=== PATIENT | female | born 1975 | race Hispanic/Latino ===

== ENCOUNTER 2020-05-23 17:26 | Emergency (ER) | payer OTHER ==
[2020-05-23] MEDS ORDERED: HYDROCODONE/APAP 5/325 MG TAB ONE (18:24)
[2020-05-23] MEDS ORDERED: MECLIZINE HCL 12.5 MG TAB ONE (18:25)
[2020-05-23] MEDS ORDERED: ONDANSETRON 4 MG (ODT) TAB ONE (18:25)
--- NOTE | 2020-05-23 18:54 | EDPHYS ---
Physician Documentation [facility] Name: Radha Reyes Age: 45 yrs Sex: Female : 1975 Arrival Date: 05/23/2020 Time: 17:30 Bed 19 Private MD: ED Physician Clyde Camarena HPI: 05/23 18:12 This 45 yrs old Female presents to ER via Wheelchair with complaints of Fall pm1 Injury. 18:12 Details of fall: The patient fell from an upright position, while standing. Onset: The pm1 symptoms/episode began/occurred today. Associated injuries: The patient sustained left foot. Severity of symptoms: in the emergency department the symptoms are unchanged. Patient reports symptoms of vertigo for the past 1 week that feel like her vertigo that she had about 4 years ago. Due to her vertigo, when she got out of bed this AM she injured her left foot. Patient also has left knee pain that has been evaluated by Dr. Rangel that is causing her to change her gait. She is pending approval from insurance for treatment of left knee. Patient reports pain with weight bearing to left foot. 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 - Social history:: Smoking status: Patient denies any tobacco usage or history of. ROS: 18:19 Constitutional: Negative for fever, chills, and weight loss, Cardiovascular: Negative pm1 for chest pain, palpitations, and edema, Respiratory: Negative for shortness of breath, cough, wheezing, and pleuritic chest pain, Back: Negative for injury and pain. 18:19 Skin: Negative for injury, rash, and discoloration. 18:19 MS/extremity: Positive for pain, of the left foot. 18:19 Neuro: Positive for vertigo, Negative for headache, numbness, syncope, near syncope, tingling, weakness. Exam: 18:19 Constitutional: This is a well developed, well nourished patient who is awake, alert, pm1 and in no acute distress. Head/Face: Normocephalic, atraumatic. Neck: Trachea midline, no thyromegaly or masses palpated, and no cervical lymphadenopathy. Supple, full range of motion without nuchal rigidity, or vertebral point tenderness. No Meningismus. Chest/axilla: Normal chest wall appearance and motion. Nontender with no deformity. No lesions are appreciated. 18:19 Back: No spinal tenderness. No costovertebral tenderness. Full range of motion. Skin: Warm, dry with normal turgor. Normal color with no rashes, no lesions, and no evidence of cellulitis. 18:19 Eyes: Nystagmus: present when looking to the right . 18:19 Cardiovascular: Exam negative for acute changes, Rate: normal, Rhythm: regular, Pulses: no pulse deficits are appreciated. 18:19 Respiratory: Exam negative for acute changes, respiratory distress, shortness of breath. 18:19 Musculoskeletal/extremity: Extremities: grossly normal except: noted in the lateral side of left foot, ball of left foot and heel of left foot: tenderness. 18:19 Neuro: Exam negative for acute changes, Orientation: is normal, Mentation: is normal, Motor: is normal, moves all fours, Eliseo-Hallpike positive for reproducing vertigo and resolution of symptoms with sitting up less than 20 seconds. Vital Signs: 17:46 BP 164 / 98; Pulse 90; Resp 16 S; Temp 98.4(TE); Pulse Ox 100% on R/A; Weight 104.33 kg ca1 (R); Height 5 ft. 2 in. (157.48 cm) (R); Pain 8/10; 18:52 BP 155 / 96; Pulse 84; Resp 18 S; Pulse Ox 100% on R/A; jd3 17:46 Body Mass Index 42.07 (104.33 kg, 157.48 cm) ca1 MDM: 17:54 Patient medically screened. pm1 18:48 Data reviewed: vital signs. Counseling: I had a detailed discussion with the patient pm1 and/or guardian regarding: the historical points, exam findings, and any diagnostic results supporting the discharge/admit diagnosis, radiology results, the need for outpatient follow up, to return to the emergency department if symptoms worsen or persist or if there are any questions or concerns that arise at home. 05/23 18:04 Order name: Foot Left 3 View XRAY pm1 05/23 18:57 Order name: Crutches; Complete Time: 19:00 pm1 05/23 18:57 Order name: Nas Wrap; Complete Time: 19:00 pm1 Administered Medications: 18:18 Drug: Meclizine 50 mg Route: PO; jd3 19:18 Follow up: Response: No adverse reaction jd3 18:18 Drug: Zofran (Ondansetron) 4 mg Route: PO; jd3 19:18 Follow up: Response: No adverse reaction jd3 18:18 Drug: [place] 5 mg-325 mg 1 tabs Route: PO; jd3 19:18 Follow up: Response: No adverse reaction; RASS: Alert and Calm (0) jd3 Disposition: 05/23/20 18:54 Discharged to Home. Impression: Unspecified sprain of left foot, Benign paroxysmal vertigo, left ear. - Condition is Stable. - Discharge Instructions: Benign Positional Vertigo, Crutch Use, Foot Sprain. - Prescriptions for Meclizine 25 mg Oral Tablet - take 1 tablet by ORAL route every 8 hours As needed; 30 tablet. Tylenol- Codeine #3 300-30 mg Oral Tablet - take 2 tablets by ORAL route every 6 hours As needed; 20 tablet. - Work release form, Medication Reconciliation Form, Thank You Letter, Antibiotic Education, Prescription Opioid Use form. - Follow up: Emergency Department; When: As needed; Reason: Worsening of condition. Follow up: Private Physician; When: 2 - 3 days; Reason: Recheck today's complaints, Continuance of care, Re-evaluation by your physician. - Problem is new. - Symptoms have improved. Addendum: 05/25/2020 07:34 Co-signature as Attending Physician, Clyde Camarena MD I agree with the assessment and t w4 plan of care. Signatures: Dispatcher [employer] EDMS Jersey Atwood, FACING MACHINE OPERATOR FACING MACHINE OPERATOR pm1 Yuriy Ro RN RN Clyde Artis MD MD tw4 Janeth Fraga RN RN ca1 Corrections: (The following items were deleted from the chart) 05/23 19:19 18:54 05/23/2020 18:54 Discharged to Home. Impression: Unspecified sprain of left foot; jd3 Benign paroxysmal vertigo, left ear. Condition is Stable. Forms are Medication Reconciliation Form, Thank You Letter, Antibiotic Education, Prescription Opioid Use. Follow up: Emergency Department; When: As needed; Reason: Worsening of condition. Follow up: Private Physician; When: 2 - 3 days; Reason: Recheck today's complaints, Continuance of care, Re-evaluation by your physician. Problem is new. Symptoms have improved. pm1
--- NOTE | 2020-05-23 18:54 | ER ---
Nurse's Notes [facility] Name: Radha Reyes Age: 45 yrs Sex: Female : 1975 Arrival Date: 05/23/2020 Time: 17:30 Bed 19 Private MD: Diagnosis: Unspecified sprain of left foot;Benign paroxysmal vertigo, left ear Presentation: 05/23 17:46 Chief complaint: Patient states: L knee pain since Tuesday and I feel like I have ca1 vertigo and I have been losing my balance. I popped it while walking on Tuesday, and twisted my L ankle/foot today. Reports swelling on L foot. Coronavirus screen: Client denies travel out of the [place] in the last 14 days. At this time, the client does not indicate any symptoms associated with coronavirus-19. Ebola Screen: Patient negative for fever greater than or equal to 101.5 degrees Fahrenheit, and additional compatible Ebola Virus Disease symptoms Patient denies exposure to infectious person. Patient denies travel to an Ebola-affected area in the 21 days before illness onset. No symptoms or risks identified at this time. Initial Sepsis Screen: Does the patient meet any 2 criteria? No. Patient's initial sepsis screen is negative. Does the patient have a suspected source of infection? No. Patient's initial sepsis screen is negative. Risk Assessment: Do you want to hurt yourself or someone else? Patient reports no desire to harm self or others. Onset of symptoms was May 23, 2020. 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 - Social history:: Smoking status: Patient denies any tobacco usage or history of. Screenin:20 Abuse screen: Denies threats or abuse. Nutritional screening: No deficits noted. jd3 Tuberculosis screening: No symptoms or risk factors identified. Fall Risk Ambulatory Aid- None/Bed Rest/Nurse Assist (0 pts). Gait- Normal/Bed Rest/Wheelchair (0 pts) Mental Status- Oriented to own ability (0 pts). Total Booth Fall Scale indicates No Risk (0-24 pts). Assessment: 18:19 General: Appears in no apparent distress. uncomfortable, Behavior is calm, cooperative, jd3 appropriate for age. Pain: Complains of pain in left foot Quality of pain is described as aching, tender, Aggravated by weight bearing. Neuro: Level of Consciousness is awake, alert, obeys commands, Oriented to person, place, time, situation. Cardiovascular: Denies chest pain, Capillary refill < 3 seconds Patient's skin is warm and dry. Respiratory: Airway is patent Respiratory effort is even, unlabored, Respiratory pattern is regular, symmetrical, Denies cough, shortness of breath. GI: No signs and/or symptoms were reported involving the gastrointestinal system. : No signs and/or symptoms were reported regarding the genitourinary system. EENT: No signs and/or symptoms were reported regarding the EENT system. Derm: Skin is intact, Skin is dry, Skin is normal, Skin temperature is warm. Musculoskeletal: Circulation, motion, and sensation intact. Range of motion: intact in all extremities. 18:53 Reassessment: Patient appears in no apparent distress at this time. No changes from jd3 previously documented assessment. Patient and/or family updated on plan of care and expected duration. Pain level reassessed. Patient is alert, oriented x 3, equal unlabored respirations, skin warm/dry/pink. 19:17 Reassessment: Patient appears in no apparent distress at this time. Patient and/or jd3 family updated on plan of care and expected duration. Pain level reassessed. Patient is alert, oriented x 3, equal unlabored respirations, skin warm/dry/pink. Vital Signs: 17:46 BP 164 / 98; Pulse 90; Resp 16 S; Temp 98.4(TE); Pulse Ox 100% on R/A; Weight 104.33 kg ca1 (R); Height 5 ft. 2 in. (157.48 cm) (R); Pain 8/10; 18:52 BP 155 / 96; Pulse 84; Resp 18 S; Pulse Ox 100% on R/A; jd3 17:46 Body Mass Index 42.07 (104.33 kg, 157.48 cm) ca1 ED Course: 17:30 Patient arrived in ED. rg4 17:50 Triage completed. ca1 17:52 Arm band placed on right wrist. ca1 17:53 Yuriy Ro RN is Primary Nurse. jd3 17:54 Jersey Atwood NP is PHCP. pm1 17:54 Clyde Camarena MD is Attending Physician. pm1 18:20 Foot Left 3 View XRAY In Process Unspecified. EDMS 18:20 Patient has correct armband on for positive identification. Bed in low position. Call jd3 light in reach. Side rails up X 1. Adult w/ patient. Pulse ox on. NIBP on. 19:17 No provider procedures requiring assistance completed. Patient did not have IV access jd3 during this emergency room visit. Administered Medications: 18:18 Drug: Meclizine 50 mg Route: PO; jd3 19:18 Follow up: Response: No adverse reaction jd3 18:18 Drug: Zofran (Ondansetron) 4 mg Route: PO; jd3 19:18 Follow up: Response: No adverse reaction jd3 18:18 Drug: [place] 5 mg-325 mg 1 tabs Route: PO; jd3 19:18 Follow up: Response: No adverse reaction; RASS: Alert and Calm (0) jd3 Outcome: 18:54 Discharge ordered by MD. pm1 19:17 Discharged to home via wheelchair, with family. jd3 19:17 Condition: stable 19:17 Discharge instructions given to patient, family, Instructed on discharge instructions, follow up and referral plans. medication usage, Demonstrated understanding of instructions, follow-up care, medications, Prescriptions given X 2. 19:19 Patient left the ED. jd3 Signatures: Dispatcher [employer] EDMS Jersey Atwood NP RHINESTONE SETTER pm1 Anni Araujo rg4 Yuriy Ro RN RN jd3 Janeth Fraga RN RN ca1
[2020-05-23 19:32] VITALS: BP 155/96; O2SAT 100
[2020-05-23 19:33] VITALS: TEMP 98.4
--- NOTE | 2020-05-23 19:36 | RAD REPORT ---
EXAM DESCRIPTION: RAD - Foot Left 3 View - 05/23/2020 6:19 pm CLINICAL HISTORY: PAIN COMPARISON: No comparisonsNo comparisons FINDINGS: No gross fracture deformity seen. No dislocation or periosteal reaction. Faint bone densit y is present along the lateral margin of the cuboid bone. This is a common site for an accessory ossi eleazar. There is relative lucency in the main body of the cuboid bone. Avulsion is not definitive. No ac bill moore's slough or destructive bony process. Spurring is seen at the Achilles attachment. Degenerative changes a re present along the articular margins of several tarsal bones. No air or foreign body in the soft tissues. IMPRESSION: No definitive fracture change identified. Bone density lateral margin of the cuboid bone is probably an accessory ossicle. Follow-up MR imaging could be performed if the patient has continued findings concerning for occult b pankaj injury or soft tissue injury.
== END 2020-05-23 19:19 | disposition home or self-care (01) ==
LOC: ER 17:26
DX: S93.602A Unspecified sprain of left foot, initial encounter (principal); H81.12 Benign paroxysmal vertigo, left ear; X50.1XXA Overexertion from prolonged static or awkward postures, initial encounter; Y93.01 Activity, walking, marching and hiking; Y92.9 Unspecified place or not applicable; I10 Essential (primary) hypertension; F41.8 Other specified anxiety disorders; E07.9 Disorder of thyroid, unspecified
CPT/HCPCS: 99284

== ENCOUNTER 2022-12-24 17:42 | Emergency (ER) | payer OTHER, SELFPAY ==
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
[2022-12-24] MEDS ORDERED: ACETAMINOPHEN 500 MG TAB ONE (18:48)
--- NOTE | 2022-12-24 18:50 | RAD REPORT ---
EXAM DESCRIPTION: CT - Head Brain Wo Cont - 12/24/2022 6:36 pm CLINICAL HISTORY: Headache COMPARISON: none TECHNIQUE: Computed axial tomography of the head was obtained. IV contrast was not requested. All CT scans are performed using dose optimization technique as appropriate and may include automated exposure control or mA/KV adjustment according to patient size. FINDINGS: An intracranial bleed is not seen The ventricles are normal in caliber No significant hypodense areas within the brain visualized No extra-axial fluid collection is noted. Fluid within the sinuses/ mastoids is not seen IMPRESSION: No acute intracranial abnormality is seen If patient's symptoms persist MRI of the brain would be recommended
[2022-12-24 19:14] LABS: Absolute Lymphocytes (CBC) 0.9 K/uL (0.7-4.9); Hematocrit 36.3 % (36.0-45.0); Lymphocytes % 6.2 % (15.3-44.8); MCV 70.3 fL (80-100); MPV 8.3 fL (7.6-11.3); RBC Red Blood Cell Count 5.17 M/uL (3.86-4.86)
[2022-12-24 19:18] LABS: Protime INR 1.16
[2022-12-24 19:27] LABS: SARS-CoV-2 Antigen Rapid Res Negative (Negative)
[2022-12-24 19:29] LABS: Albumin 3.7 g/dL (3.4-5.0); Bilirubin Total 0.8 mg/dL (0.2-1.0); Potassium 3.4 mEq/L (3.5-5.1); Protein, Total 8.2 g/dL (6.4-8.2)
[2022-12-24] MEDS ORDERED: NA CHLORIDE 0.9% 1,000 ML ONE (19:32)
[2022-12-24] MEDS ORDERED: MAGNESIUM SULFATE 1 gm IVPB 1 GM/100 ML BAG IV ONE (20:58)
[2022-12-24] MEDS ORDERED: dexAMETHasone 10 MG/ML VIAL ONE (20:58)
[2022-12-24] MEDS ORDERED: KETOROLAC 30 MG/ML INJ ONE (20:58)
[2022-12-24] MEDS ORDERED: METOCLOPRAMIDE 10 MG/2mL INJ ONE (20:59)
[2022-12-24] MEDS ORDERED: NA CHLORIDE 0.9% 100 ML ONE (20:59)
[2022-12-24 22:55] LABS: Specific Gravity 1.008 (1.005-1.030); Urine Bacteria None Seen /HPF (<20); Urine Bilirubin NEGATIVE (Negative); Urine Blood Negative (Negative); Urine Clarity Turbid (Clear); Urine Color Light-Yellow (Yellow); Urine Glucose NEGATIVE (Negative); Urine Mucus Slight /HPF (None Seen); Urine Protein NEGATIVE (Negative); Urine RBC <5 /HPF (None Seen); Urine Urobilinogen Normal (Normal); Urine pH 6.5 (5.0-7.0)
--- NOTE | 2022-12-24 23:19 | ER ---
Nurse's Notes [facility] Name: Radha Reyes Age: 47 yrs Sex: Female : 1975 Arrival Date: 12/24/2022 Time: 17:42 Bed 15 Private MD: Diagnosis: Essential (primary) hypertension;Headache Presentation: 12/24 18:12 Chief complaint: Patient states: "Today I started having diarrhea, headache, went I mb9 stood up I felt like I was going to collapse. It hurts when I open my eyes. My body is hurting and I have aches". Coronavirus screen: Vaccine status: Patient reports being unvaccinated. Ebola Screen: No symptoms or risks identified at this time. Initial Sepsis Screen: Does the patient meet any 2 criteria? No. Patient's initial sepsis screen is negative. Does the patient have a suspected source of infection? No. Patient's initial sepsis screen is negative. Risk Assessment: Do you want to hurt yourself or someone else? Patient reports no desire to harm self or others. Onset of symptoms. 18:12 Method Of Arrival: Wheelchair [facility] 18:12 Acuity: CA 3 mb9 Triage Assessment: 18:16 General: Appears uncomfortable, Behavior is cooperative. Pain: Complains of pain in mb9 head Pain does not radiate. Pain currently is 10 out of 10 on a pain scale. Quality of pain is described as throbbing, Pain began suddenly, Is continuous. 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 Speech is normal, Facial symmetry appears normal, Pupils are PERRLA, Intact. Cardiovascular: Denies chest pain, shortness of breath, Patient's skin is warm and dry. Respiratory: Airway is patent Respiratory effort is even, unlabored, Respiratory pattern is regular, symmetrical. GI: No signs and/or symptoms were reported involving the gastrointestinal system. Derm: Skin is pink, warm \\T\\ dry. Musculoskeletal: Range of motion: intact in all extremities. Historical: - Allergies: 18:13 No Known Allergies; mb9 - Home Meds: 18:13 None [Active]; mb9 - PMHx: 18:13 Anxiety; Depression; Hypertension; Thyroid problem; mb9 - PSHx: 18:13 section; mb9 - Immunization history:: Adult Immunizations up to date. - Social history:: Smoking status: Patient denies any tobacco usage or history of. Screenin:30 [facility] ED Fall Risk Assessment (Adult) History of falling in the last 3 months, kc6 including since admission No falls in past 3 months (0 pts) Confusion or Disorientation No (0 pts) Intoxicated or Sedated No (0 pts) Impaired Gait No (0 pts) Mobility Assist Device Used No (0 pt) Altered Elimination No (0 pt) Score/Fall Risk Level 0 - 2 = Low Risk. Abuse screen: Denies threats or abuse. Denies injuries from another. Nutritional screening: No deficits noted. Tuberculosis screening: No symptoms or risk factors identified. Assessment: 18:30 General: Appears in no apparent distress. uncomfortable, ill, Behavior is cooperative, kc6 appropriate for age. Pain: Complains of pain in chest. Neuro: Level of Consciousness is obeys commands, lethargic, Oriented to person, place, time, situation, Appropriate for age. Cardiovascular: Reports chest pain, shortness of breath, Heart tones S1 S2 present Capillary refill < 3 seconds Rhythm is sinus tachycardia. Respiratory: Airway is patent Trachea midline Respiratory effort is even, unlabored, Respiratory pattern is regular, symmetrical. GI: Abdomen is round non-distended, Reports diarrhea, Patient currently denies nausea, vomiting. : No signs and/or symptoms were reported regarding the genitourinary system. EENT: No signs and/or symptoms were reported regarding the EENT system. Derm: No signs and/or symptoms reported regarding the dermatologic system. Skin is intact, is healthy with good turgor, Skin is pink, warm \\T\\ dry. Musculoskeletal: No signs and/or symptoms reported regarding the musculoskeletal system. Circulation, motion, and sensation intact. Capillary refill < 3 seconds, Range of motion: intact in all extremities. 23:00 Reassessment: Patient and/or family updated on plan of care and expected duration. Pain ha1 level reassessed. Patient is alert, oriented x 3, equal unlabored respirations, skin warm/dry/pink. 23:59 Reassessment: Patient and/or family updated on plan of care and expected duration. Pain ha1 level reassessed. Patient is alert, oriented x 3, equal unlabored respirations, skin warm/dry/pink. Vital Signs: 18:12 BP 185 / 90; Pulse 120; Resp 18; Temp 100.3; Pulse Ox 98% on R/A; Weight 104.33 kg; mb9 Height 5 ft. 2 in. ; Pain 8/10; 21:06 BP 149 / 78; Pulse 104; Resp 16; Temp 98.9(O); Pulse Ox 100% on R/A; ll3 22:13 BP 162 / 92; Pulse 105; Resp 18; Pulse Ox 98% on R/A; ll3 18:12 Body Mass Index 42.07 (104.33 kg, 157.48 cm) mb9 18:12 Pain Scale: Adult mb9 ED Course: 17:45 Patient arrived in ED. im 17:47 Temi Lyons PA-C is PHCP. sb4 17:48 Alexis Loza MD is Attending Physician. sb4 18:13 Triage completed. mb9 18:16 Arm band placed on. mb9 18:30 Patient has correct armband on for positive identification. Bed in low position. Call kc6 light in reach. Side rails up X2. Adult w/ patient. 18:36 Amelia Gardner, RN is Primary Nurse. kc6 18:37 Head Brain Wo Cont CT In Process Unspecified. EDMS 18:58 First set of blood cultures drawn COVID swab sent to lab. Flu and/or RSV swab sent to aw1 lab. Inserted saline lock: 20 gauge in right antecubital area, using aseptic technique. 19:09 Initial lab(s) drawn, by id, sent to lab. aw1 23:18 Jf Silvestre DO is Referral Physician. sb4 23:58 No provider procedures requiring assistance completed. IV discontinued, intact, ha1 bleeding controlled, No redness/swelling at site. Pressure dressing applied. 23:59 Provided Education on: follow ups. ha1 Administered Medications: 19:00 Drug: Acetaminophen PO 1000 mg Route: PO; kc6 21:53 Follow up: Response: No adverse reaction; Temperature is decreased ll3 19:25 Drug: NS 0.9% IV 1000 ml Route: IV; Rate: 1 bolus; Site: right antecubital; ll3 21:53 Follow up: Response: No adverse reaction; IV Status: Completed infusion; IV Intake: ll3 1000ml 21:05 Drug: Ketorolac IVP 30 mg Route: IVP; Site: right antecubital; ll3 21:53 Follow up: Response: No adverse reaction; Marked relief of symptoms ll3 21:05 Drug: Magnesium Sulfate IVPB 1 grams Route: IVPB; Infused Over: 1 hrs; Site: right ll3 antecubital; 21:53 Follow up: Response: No adverse reaction; Marked relief of symptoms; IV Status: ll3 Completed infusion; IV Intake: 100ml 21:05 Drug: metoCLOPramide IVP 10 mg Route: IVP; Site: right antecubital; ll3 21:52 Follow up: Response: No adverse reaction; Marked relief of symptoms ll3 21:05 Drug: Decadron - Dexamethasone IVP 10 mg Route: IVP; Site: right antecubital; ll3 21:52 Follow up: Response: No adverse reaction; Marked relief of symptoms ll3 Medication: 23:58 VIS not applicable for this client. ha1 Intake: 21:53 IV: 100ml; Total: 100ml. ll3 21:53 IV: 1000ml; Total: 1100ml. ll3 Outcome: 23:18 Discharge ordered by MD. sb4 23:58 Discharged to home ambulatory, with family. ha1 23:58 Condition: stable 23:58 Discharge instructions given to patient, family, Instructed on discharge instructions, follow up and referral plans. Demonstrated understanding of instructions, follow-up care. 23:59 Patient left the ED. ha1 Signatures: Dispatcher [employer] EDMS Kirti Duff RN RN 3 Krystal Martinez RN RN ha1 Amelia Gardner RN RN kc6 Teim Lyons PA-C PAAnkush [email or web address] Katharine Mccurdy RN RN mb9 Taryn Jenkins Alyssa aw1 Corrections: (The following items were deleted from the chart) 18:16 18:12 BP 184 / 101; Pulse 120bpm; Resp 18bpm; Pulse Ox 98% RA; Temp 100.3F; 104.33 kg; mb9 Height 5 ft. 2 in.; BMI: 42.0; Pain 8/10, Adult; mb9 18:16 18:13 Home Meds: amlodipine 5 mg tab 1 tab once daily; mb9 mb9 18:16 18:13 Home Meds: levothyroxine oral; mb9 mb9 18:16 18:13 Home Meds: meloxicam Oral; mb9 mb9 19:08 19:07 Labs ordered per protocol. Drawn by ED staff. 1 19:06 Influenza Screen (A \\T\\ B)+BA.LAB.BRZ drawn and sent. 1 aw 19:06 SARS-COV-2 Antigen Rapid+I.LAB.BRZ drawn and sent. 1 aw1 19:08 Initial lab(s) drawn, by me, sent to lab. ha1 aw1 18:58 First set of blood cultures drawn by me, COVID swab sent to lab. Flu and/or RSV aw1 swab sent to lab. ha1 18:58 Inserted saline lock: 20 gauge in right antecubital area, using aseptic aw1 technique. ha1
--- NOTE | 2022-12-24 23:19 | EDPHYS ---
Physician Documentation [facility] Name: Radha Reyes Age: 47 yrs Sex: Female : 1975 Arrival Date: 12/24/2022 Time: 17:42 Bed 15 Private MD: ED Physician Alexis Loza HPI: 12/24 21:10 This 47 yrs old Female presents to ER via Wheelchair with complaints of Fever, sb4 High Blood Pressure, Near Syncope. 21:10 Onset: The symptoms/episode began/occurred just prior to arrival. Patient presents with sb4 complaints of severe headache, fever, weakness, high blood pressure. She states it started just prior to arrival. No known sick contacts. Patient is not very cooperative during my assessment. No neurologic deficits noted. Historical: - Allergies: 18:13 No Known Allergies; mb9 - Home Meds: 18:13 None [Active]; mb9 - PMHx: 18:13 Anxiety; Depression; Hypertension; Thyroid problem; mb9 - PSHx: 18:13 section; mb9 - Immunization history:: Adult Immunizations up to date. - Social history:: Smoking status: Patient denies any tobacco usage or history of. ROS: 21:12 Cardiovascular: Negative for chest pain, palpitations, and edema, Respiratory: Negative sb4 for shortness of breath, cough, wheezing, and pleuritic chest pain. 21:12 Constitutional: Positive for body aches, chills, fever, malaise. 21:12 Abdomen/GI: Positive for nausea, vomiting, and diarrhea. 21:12 Neuro: Positive for dizziness, headache, near syncope. 21:12 All other systems are negative. Exam: 21:12 Head/Face: Normocephalic, atraumatic. Eyes: Extra-ocular motions intact. Periorbital sb4 areas with no swelling, redness, or edema. Cardiovascular: Regular rate and rhythm with a normal S1 and S2. Respiratory: Lungs have equal breath sounds bilaterally, clear to auscultation and percussion. No rales, rhonchi or wheezes noted. No increased work of breathing, no retractions or nasal flaring. Abdomen/GI: Soft, non-tender, no distension. Skin: Warm, dry with normal turgor. Normal color with no rashes, no lesions, and no evidence of cellulitis. MS/ Extremity: Pulses equal, no cyanosis. Neurovascular intact. Full, normal range of motion. Neuro: Awake and alert, GCS 15, oriented to person, place, time, and situation. Cranial nerves II-XII grossly intact. Motor strength 5/5 in all extremities. Sensory grossly intact. Cerebellar exam normal. Normal gait. 21:12 Constitutional: The patient appears lethargic, restless, uncomfortable. Vital Signs: 18:12 BP 185 / 90; Pulse 120; Resp 18; Temp 100.3; Pulse Ox 98% on R/A; Weight 104.33 kg; mb9 Height 5 ft. 2 in. ; Pain 8/10; 21:06 BP 149 / 78; Pulse 104; Resp 16; Temp 98.9(O); Pulse Ox 100% on R/A; ll3 22:13 BP 162 / 92; Pulse 105; Resp 18; Pulse Ox 98% on R/A; ll3 18:12 Body Mass Index 42.07 (104.33 kg, 157.48 cm) mb9 18:12 Pain Scale: Adult mb9 MDM: 17:48 Patient medically screened. sb4 21:12 Differential diagnosis: viral Infection, bacterial infection, URI, bronchitis, sb4 pneumonia UTI, gastroenteritis, meningitis. 23:17 Data reviewed: vital signs, nurses notes, lab test result(s), EKG, radiologic studies, sb4 and as a result, I will discharge patient. Consideration of Admission/Observation Escalation of care including admission/observation considered. Historians other than the Patient: Spouse/Significant Other: significant other. Care significantly affected by the following chronic conditions: Hypertension. Counseling: I had a detailed discussion with the patient and/or guardian regarding: the historical points, exam findings, and any diagnostic results supporting the discharge/admit diagnosis, the presence of at least one elevated blood pressure reading (>120/80) during this emergency department visit, lab results, radiology results, the need for outpatient follow up, for definitive care, to return to the emergency department if symptoms worsen or persist or if there are any questions or concerns that arise at home. Response to treatment: the patient's symptoms have resolved after treatment, the patient's blood pressure is in an acceptable range, the patient's pain is gone, the patient's temperature has normalized. 12/24 18:21 Order name: Blood Culture Adult (2) sb4 12/24 18:21 Order name: CBC with Diff; Complete Time: 19:16 sb4 12/24 18:21 Order name: CMP; Complete Time: 19:29 sb4 12/24 18:21 Order name: Lactate w/ 2H reflex if indic.; Complete Time: 19:25 sb4 12/24 18:21 Order name: Protime (+inr); Complete Time: 19:19 sb4 12/24 18:21 Order name: Ptt, Activated; Complete Time: 19:19 sb4 12/24 18:21 Order name: SARS RAPID; Complete Time: 19:28 sb4 12/24 18:21 Order name: Flu; Complete Time: 19:30 sb4 12/24 18:21 Order name: UAM; Complete Time: 23:11 sb4 12/24 18:24 Order name: Troponin High Sensitivity; Complete Time: 21:04 sb4 12/24 18:21 Order name: Head Brain Wo Cont CT; Complete Time: 18:51 sb4 12/24 18:21 Order name: EKG; Complete Time: 18:22 sb4 12/24 18:21 Order name: Accucheck; Complete Time: 18:59 sb4 12/24 18:21 Order name: Cardiac monitoring; Complete Time: 18:59 sb4 12/24 18:21 Order name: EKG - Nurse/Tech; Complete Time: 18:59 sb4 12/24 18:21 Order name: IV Saline Lock - Large Bore; Complete Time: 19:06 sb4 12/24 18:21 Order name: Labs collected and sent; Complete Time: 19:06 sb4 12/24 18:21 Order name: O2 Per Protocol; Complete Time: 18:59 sb4 12/24 18:21 Order name: O2 Sat Monitoring; Complete Time: 18:59 sb4 12/24 18:21 Order name: Vital Signs; Complete Time: 18:59 sb4 12/24 21:04 Order name: Vital Signs; Complete Time: 21:07 sb4 EC:12 Rate is 117 beats/min. Rhythm is regular, Sinus tachycardia. OK interval is normal at sb4 136 msec. QRS interval is normal at 82 msec. QT interval is normal at 324 msec. No Q waves. No ST changes noted. Clinical impression: Normal ECG. Interpreted by me. Reviewed by me. Administered Medications: 19:00 Drug: Acetaminophen PO 1000 mg Route: PO; kc6 21:53 Follow up: Response: No adverse reaction; Temperature is decreased ll3 19:25 Drug: NS 0.9% IV 1000 ml Route: IV; Rate: 1 bolus; Site: right antecubital; ll3 21:53 Follow up: Response: No adverse reaction; IV Status: Completed infusion; IV Intake: ll3 1000ml 21:05 Drug: Ketorolac IVP 30 mg Route: IVP; Site: right antecubital; ll3 21:53 Follow up: Response: No adverse reaction; Marked relief of symptoms ll3 21:05 Drug: Magnesium Sulfate IVPB 1 grams Route: IVPB; Infused Over: 1 hrs; Site: right ll3 antecubital; 21:53 Follow up: Response: No adverse reaction; Marked relief of symptoms; IV Status: ll3 Completed infusion; IV Intake: 100ml 21:05 Drug: metoCLOPramide IVP 10 mg Route: IVP; Site: right antecubital; ll3 21:52 Follow up: Response: No adverse reaction; Marked relief of symptoms ll3 21:05 Drug: Decadron - Dexamethasone IVP 10 mg Route: IVP; Site: right antecubital; ll3 21:52 Follow up: Response: No adverse reaction; Marked relief of symptoms ll3 Disposition Summary: 12/24/22 23:18 Discharge Ordered Location: Home sb4 Problem: new sb4 Symptoms: have improved sb4 Condition: Stable sb4 Diagnosis - Essential (primary) hypertension sb4 - Headache sb4 Followup: sb4 - With: Jf Silvestre, - When: 2 - 3 days - Reason: Recheck today's complaints, Continuance of care, Re-evaluation by your physician Discharge Instructions: - Discharge Summary Sheet sb4 - Hypertension, Adult, [id number] sb4 Forms: - Medication Reconciliation Form sb4 - Thank You Letter sb4 - Antibiotic Education sb4 - Prescription Opioid Use sb4 - Patient Portal Instructions sb4 Signatures: Dispatcher [employer] Kirti Schwarz RN RN ll3 Amelia Gardner RN RN kc6 Temi Lyons PA-C PAAnkush sb4 Katharine Mccurdy RN RN mb9 Corrections: (The following items were deleted from the chart) 18:16 18:13 Home Meds: amlodipine 5 mg tab 1 tab once daily; mb9 mb9 18:16 18:13 Home Meds: levothyroxine oral; mb9 mb9 18:16 18:13 Home Meds: meloxicam Oral; mb9 mb9 21:12 21:11 Associated signs and symptoms: Pertinent positives: sb4 sb4
[2022-12-25 00:14] VITALS: TEMP 98.9
[2022-12-25 00:16] VITALS: BP 162/92; O2SAT 98
--- NOTE | 2022-12-27 13:09 | EKG ---
Test Date: 2022-12-24 Test Time: 18:56:17 Patient Placement Coordinator: MICHAEL MEASUREMENT RESULTS: Intervals: Rate: 117 WV: 136 QRSD: 82 QT: 324 QTc: 451 [place]: P: 47 WV: 136 QRS: 31 T: 1 INTERPRETIVE STATEMENTS: Sinus tachycardia Nonspecific T wave abnormality Abnormal ECG No previous ECG available for comparison Electronically Signed On 12-27-22 13:05:43 CDT by Sony Owusu
== END 2022-12-24 23:59 | disposition home or self-care (01) ==
LOC: ER 17:42
DX: I10 Essential (primary) hypertension (principal); R51.9 Headache, unspecified
CPT/HCPCS: 36415; 70450; 80053; 81001; 83605; 84484; 85025; 85610; 85730; 87040; 87804; 87811; 93005; 96361; 96365; 96375; 99284; J1100; J2765; J3475; J7030

== ENCOUNTER 2023-03-23 23:17 | Emergency (ER) | payer OTHER, SELFPAY ==
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
[2023-03-24] MEDS ORDERED: KETOROLAC 30 MG/ML INJ ONE (00:39)
[2023-03-24] MEDS ORDERED: ONDANSETRON 4 MG/2 ML VIAL ONE (00:39)
[2023-03-24] MEDS ORDERED: FENTANYL CITR 100 MCG/2 ML ONE (00:39)
[2023-03-24 01:08] LABS: Absolute Lymphocytes (CBC) 2.6 K/uL (0.7-4.9); Hematocrit 32.9 % (36.0-45.0); Lymphocytes % 26.1 % (15.3-44.8); MCV 69.5 fL (80-100); Platelets 329 thou/uL (152-406); RBC Red Blood Cell Count 4.74 M/uL (3.86-4.86)
[2023-03-24 01:15] LABS: ALT/SGPT 38 U/L (13-56); AST/SGOT 23 U/L (15-37); Albumin 3.2 g/dL (3.4-5.0); Alkaline Phosphatase 100 U/L (45-117); BUN Blood Urea Nitrogen 9 mg/dL (7-18); Bicarbonate 26 mEq/L (21-32); Bilirubin Total 0.3 mg/dL (0.2-1.0); Glomerular Filtration Rate 108 ml/min (=/>90); Glucose Level 130 mg/dL (74-106); Lipase 55 U/L (13-75); Potassium 3.7 mEq/L (3.5-5.1); Protein, Total 7.3 g/dL (6.4-8.2); Sodium Level 137 mEq/L (136-145)
[2023-03-24 01:17] LABS: Bilirubin Direct < 0.1 mg/dL (0-0.2); Bilirubin Indirect, Calculated ND mg/dL (0.2-0.8)
[2023-03-24 01:28] LABS: Specific Gravity 1.022 (1.005-1.030); Urine Bilirubin NEGATIVE (Negative); Urine Blood Negative (Negative); Urine Clarity Clear (Clear); Urine Color Light-Yellow (Yellow); Urine Glucose NEGATIVE (Negative); Urine Protein NEGATIVE (Negative); Urine Urobilinogen Normal (Normal)
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
[2023-03-24 03:01] LABS: Anisocytosis 1+; Blood Morphology Comment NOTED (NOT SEEN); Platelet Estimate ADEQ; White Blood Cell Scan OK (OK)
[2023-03-24 03:56] VITALS: BP 140/75; O2SAT 99
--- NOTE | 2023-03-24 09:45 | EKG ---
Test Date: 2023-03-24 Test Time: 01:00:54 Devops Architect: FABIOLA MEASUREMENT RESULTS: Intervals: Rate: 73 AR: 142 QRSD: 94 QT: 408 QTc: 449 [place]: P: 37 AR: 142 QRS: 73 T: 37 INTERPRETIVE STATEMENTS: Normal sinus rhythm Normal ECG Compared to ECG 12/24/2022 18:56:17 Sinus tachycardia no longer present T-wave abnormality no longer present Electronically Signed On 03-24-23 09:44:57 CDT by Sony Owusu
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
== END 2023-03-24 03:34 | disposition home or self-care (01) ==
LOC: ER 23:17
DX: S29.011A Strain of muscle and tendon of front wall of thorax, initial encounter (principal); S60.222A Contusion of left hand, initial encounter; S60.221A Contusion of right hand, initial encounter; V50.5XXA Driver of pick-up truck or van injured in collision with pedestrian or animal in traffic accident, initial encounter; I10 Essential (primary) hypertension
CPT/HCPCS: 93005; 85025; 80048; 36415; 86900; 86850; 84703; 86901; 80076; 81003; 83690; 70450; 72125; 71260; 74177; 73130 ×2; 96375; 96374; 99284; Q9967; J3010; J2405

== ENCOUNTER 2024-03-21 11:37 | Emergency (ER) | payer OTHER, SELFPAY ==
--- OUTSIDE RECORDS SUMMARY | 2024-03-21 11:42 | XMS REPORT | Continuity of Care Document ---
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 [facility] 2017-08-15 15:00:00 2017-08-15 15:00:00 Outpatient [facility] [id number] [facility] Results Test Description Test Time Test Comments Results Result Co mments Source Duarte June, THIRD [id number] 00:00:00* Test Item Value Reference Range Interpretation Comme nts TSH, THIRD GENERATION (test code = 2821) 6.470 UIU/ML Duarte McadamsLIPID [id number] 00:00:00* Test Item Value Reference Range Interpretation Comme nts CHOLESTEROL (test code = 2210) 196 MG/DL TRIGLYCERIDES (test code = 2232) 163 MG/DL HDL CHOLESTEROL (test code = 2220) 47 MG/DL CALC LDL CHOL (test code = 2237) 121 MG/DL RISK RATIO LDL/HDL (test cod e = 2238) 2.57 RATIO Duarte McadamsCOMPREHENSIVE METABOLIC [id number] 00:00:00* Test Item Value Reference Range Interpretation Comme nts GLUCOSE (test code = 2217) 98 MG/DL BUN (test code = 2208) 11 MG/DL CREATININE (test code = 2214) 0.97 MG/DL eGFR (2020 CKD-EPI) (test co de = 75910) 72 ML/MIN/1.73 CALC BUN/CREAT (test code = 2235) 11 RATIO SODIUM (test code = 2231) 137 MEQ/L POTASSIUM (test code = 2228) 4.0 MEQ/L CHLORIDE (test code = 2215) 97 MEQ/L CARBON DIOXIDE (test code = 2206) 25 MEQ/L CALCIUM (test code = 2209) 10.3 MG/DL PROTEIN, TOTAL (test code = 2229) 7.9 G/DL ALBUMIN (test code = 2201) 4.6 G/DL CALC GLOBULIN (test code = 2240) 3.3 G/DL CALC A/G RATIO (test code = 2234) 1.4 RATIO BILIRUBIN, TOTAL (test code = 2207) 0.3 MG/DL ALKALINE PHOSPHATASE (test code = 2204) 118 U/L AST (test code = 2218) 17 U/L ALT (test code = 2219) 25 U/L Duarte F AustinTSH REFLEX TO FREE [id number] 00:00:00* Test Item Value Reference Range Interpretation Comme nts TSH REFLEX TO FREE T4 (test code = 2834) 0.444 UIU/ML Duarte F AustinTSH REFLEX TO FREE [id number] 00:00:00* Test Item Value Reference Range Interpretation Comme nts TSH REFLEX TO FREE T4 (test code = 2834) 0.444 UIU/ML Duarte F AustinTSH REFLEX TO FREE [id number] 00:00:00* Test Item Value Reference Range Interpretation Comme nts TSH REFLEX TO FREE T4 (test code = 2834) 0.444 UIU/ML Duarte F AustinTSH REFLEX TO FREE [id number] 00:00:00* Test Item Value Reference Range Interpretation Comme nts TSH REFLEX TO FREE T4 (test code = 2834) 0.444 UIU/ML Duarte F AustinTSH REFLEX TO FREE [id number] 00:00:00* Test Item Value Reference Range Interpretation Comme nts TSH REFLEX TO FREE T4 (test code = 2834) 2.460 UIU/ML Duarte F AustinTSH REFLEX TO FREE [id number] 00:00:00* Test Item Value Reference Range Interpretation Comme nts TSH REFLEX TO FREE T4 (test code = 2834) 2.460 UIU/ML Duarte F AustinTSH REFLEX TO FREE [id number] 00:00:00* Test Item Value Reference Range Interpretation Comme nts TSH REFLEX TO FREE T4 (test code = 2834) 2.460 UIU/ML Duarte F AustinTSH REFLEX TO FREE [id number] 00:00:00* Test Item Value Reference Range Interpretation Comme nts TSH REFLEX TO FREE T4 (test code = 2834) 2.460 UIU/ML Duarte Olsen AustinTSH REFLEX TO FREE [id number] 00:00:00* Test Item Value Reference Range Interpretation Comme nts TSH REFLEX TO FREE T4 (test code = 2834) 2.460 UIU/ML Duarte Olsen AustinTSH REFLEX TO FREE [id number] 00:00:00* Test Item Value Reference Range Interpretation Comme nts TSH REFLEX TO FREE T4 (test code = 2834) 2.460 UIU/ML Duarte Olsen AustinHEMOGLOBIN [id number] 00:00:00* Test Item Value Reference Range Interpretation Comme nts HEMOGLOBIN A1c (test code = 46206) 6.3 % Duarte Olsen AustinHEMOGLOBIN [id number] 00:00:00* Test Item Value Reference Range Interpretation Comme nts HEMOGLOBIN A1c (test code = 28620) 6.3 % Duarte Olsen AustinHEMOGLOBIN [id number] 00:00:00* Test Item Value Reference Range Interpretation Comme nts HEMOGLOBIN A1c (test code = 99848) 6.3 % Duarte Olsen AustinHEMOGLOBIN [id number] 00:00:00* Test Item Value Reference Range Interpretation Comme nts HEMOGLOBIN A1c (test code = 61370) 6.3 % Duarte Olsen AustinHEMOGLOBIN [id number] 00:00:00* Test Item Value Reference Range Interpretation Comme nts HEMOGLOBIN A1c (test code = 24105) 6.3 % Duarte Olsen AustinHEMOGLOBIN [id number] 00:00:00* Test Item Value Reference Range Interpretation Comme nts HEMOGLOBIN A1c (test code = 01371) 6.3 % Duarte Pretty AustinHEMOGLOBIN [id number] 00:00:00* Test Item Value Reference Range Interpretation Comme nts HEMOGLOBIN A1c (test code = 76785) TEST NOT PERFORMED % Duarte Pretty AustinHEMOGLOBIN [id number] 00:00:00* Test Item Value Reference Range Interpretation Comme nts HEMOGLOBIN A1c (test code = 38976) TEST NOT PERFORMED % Duarte Olsen AustinHEMOGLOBIN [id number] 00:00:00* Test Item Value Reference Range Interpretation Comme nts HEMOGLOBIN A1c (test code = 28952) TEST NOT PERFORMED % Duarte F AustinHEMOGLOBIN [id number] 00:00:00* Test Item Value Reference Range Interpretation Comme nts HEMOGLOBIN A1c (test code = 45295) TEST NOT PERFORMED % Duarte F AustinHEMOGLOBIN [id number] 00:00:00* Test Item Value Reference Range Interpretation Comme nts HEMOGLOBIN A1c (test code = 37424) TEST NOT PERFORMED % Duarte F AustinHEMOGLOBIN [id number] 00:00:00* Test Item Value Reference Range Interpretation Comme nts HEMOGLOBIN A1c (test code = 57075) TEST NOT PERFORMED % Duarte F AustinOccult Blood, Fecal, [id number] 00:00:00* Test Item Value Reference Range Interpretation Comme nts Occult Blood, Fecal, IA (byron t code = 19061-1) Negative Duarte F AustinOccult Blood, Fecal, [id number] 00:00:00* Test Item Value Reference Range Interpretation Comme nts Occult Blood, Fecal, IA (byron t code = 49212-8) Negative Duarte F AustinOccult Blood, Fecal, [id number] 00:00:00* Test Item Value Reference Range Interpretation Comme nts Occult Blood, Fecal, IA (byron t code = 79884-3) Negative Duarte F AustinOccult Blood, Fecal, [id number] 00:00:00* Test Item Value Reference Range Interpretation Comme nts Occult Blood, Fecal, IA (byron t code = 67671-5) Negative Duarte F AustinOccult Blood, Fecal, [id number] 00:00:00* Test Item Value Reference Range Interpretation Comme nts Occult Blood, Fecal, IA (byron t code = 75472-0) Negative Duarte F AustinOccult Blood, Fecal, [id number] 00:00:00* Test Item Value Reference Range Interpretation Comme nts Occult Blood, Fecal, IA (byron t code = 44196-3) Negative Duarte F AustinLIPID [id number] 00:00:00* Test Item Value Reference Range Interpretation Comme nts CHOLESTEROL (test code = 2210) 154 MG/DL TRIGLYCERIDES (test code = 2232) 104 MG/DL HDL CHOLESTEROL (test code = 2220) 51 MG/DL CALC LDL CHOL (test code = 2237) 83 MG/DL RISK RATIO LDL/HDL (test cod e = 2238) 1.63 RATIO Duarte McadamsLIPID [id number] 00:00:00* Test Item Value Reference Range Interpretation Comme nts CHOLESTEROL (test code = 2210) 154 MG/DL TRIGLYCERIDES (test code = 2232) 104 MG/DL HDL CHOLESTEROL (test code = 2220) 51 MG/DL CALC LDL CHOL (test code = 2237) 83 MG/DL RISK RATIO LDL/HDL (test cod e = 2238) 1.63 RATIO Duarte McadamsLIPID [id number] 00:00:00* Test Item Value Reference Range Interpretation Comme nts CHOLESTEROL (test code = 2210) 154 MG/DL TRIGLYCERIDES (test code = 2232) 104 MG/DL HDL CHOLESTEROL (test code = 2220) 51 MG/DL CALC LDL CHOL (test code = 2237) 83 MG/DL RISK RATIO LDL/HDL (test cod e = 2238) 1.63 RATIO Duarte McadamsLIPID [id number] 00:00:00* Test Item Value Reference Range Interpretation Comme nts CHOLESTEROL (test code = 2210) 154 MG/DL TRIGLYCERIDES (test code = 2232) 104 MG/DL HDL CHOLESTEROL (test code = 2220) 51 MG/DL CALC LDL CHOL (test code = 2237) 83 MG/DL RISK RATIO LDL/HDL (test cod e = 2238) 1.63 RATIO Duarte McadamsLIPID [id number] 00:00:00* Test Item Value Reference Range Interpretation Comme nts CHOLESTEROL (test code = 2210) 154 MG/DL TRIGLYCERIDES (test code = 2232) 104 MG/DL HDL CHOLESTEROL (test code = 2220) 51 MG/DL CALC LDL CHOL (test code = 2237) 83 MG/DL RISK RATIO LDL/HDL (test cod e = 2238) 1.63 RATIO Duarte McadamsLIPID [id number] 00:00:00* Test Item Value Reference Range Interpretation Comme nts CHOLESTEROL (test code = 2210) 154 MG/DL TRIGLYCERIDES (test code = 2232) 104 MG/DL HDL CHOLESTEROL (test code = 2220) 51 MG/DL CALC LDL CHOL (test code = 2237) 83 MG/DL RISK RATIO LDL/HDL (test cod e = 2238) 1.63 RATIO Duarte Daniels T4 (THYROXINE)2023-06-30 00:00:00* Test Item Value Reference Range Interpretation Comme nts FREE T4 (THYROXINE) (test co de = 2823) 0.98 NG/DL Duarte McadamsT3 [id number] 00:00:00* Test Item Value Reference Range Interpretation Comme nts T3 TOTAL (test code = 2818) 146 NG/DL Duarte McadamsCOMPREHENSIVE METABOLIC [id number] 00:00:00* Test Item Value Reference Range Interpretation Comme nts GLUCOSE (test code = 2217) 120 MG/DL BUN (test code = 2208) 9 MG/DL CREATININE (test code = 2214) 0.62 MG/DL eGFR (2020 CKD-EPI) (test code = 35636) 110 ML/MIN/1.73 CALC BUN/CREAT (test code = 2235) 15 RATIO SODIUM (test code = 2231) 141 MEQ/L POTASSIUM (test code = 2228) 4.0 MEQ/L CHLORIDE (test code = 2215) 107 MEQ/L CARBON DIOXIDE (test code = 2206) 23 MEQ/L CALCIUM (test code = 2209) 8.9 MG/DL PROTEIN, TOTAL (test code = 2229) 6.8 G/DL ALBUMIN (test code = 2201) 4.1 G/DL CALC GLOBULIN (test code = 2240) 2.7 G/DL CALC A/G RATIO (test code = 2234) 1.5 RATIO BILIRUBIN, TOTAL (test code = 2207) <0.2 MG/DL ALKALINE PHOSPHATASE (test code = 2204) 95 U/L AST (test code = 2218) 14 U/L ALT (test code = 2219) 15 U/L Duarte McadamsTSH, THIRD [id number] 00:00:00* Test Item Value Reference Range Interpretation Comme nts TSH, THIRD GENERATION (test code = 2821) 11.300 UIU/ML Duarte McadamsFREE T4 (THYROXINE)2023-06-30 00:00:00* Test Item Value Reference Range Interpretation Comme nts FREE T4 (THYROXINE) (test co de = 2823) 0.98 NG/DL Duarte McadamsT3 [id number] 00:00:00* Test Item Value Reference Range Interpretation Comme nts T3 TOTAL (test code = 2818) 146 NG/DL Duarte McadamsCOMPREHENSIVE METABOLIC [id number] 00:00:00* Test Item Value Reference Range Interpretation Comme nts GLUCOSE (test code = 2217) 120 MG/DL BUN (test code = 2208) 9 MG/DL CREATININE (test code = 2214) 0.62 MG/DL eGFR (2020 CKD-EPI) (test code = 47706) 110 ML/MIN/1.73 CALC BUN/CREAT (test code = 2235) 15 RATIO SODIUM (test code = 2231) 141 MEQ/L POTASSIUM (test code = 2228) 4.0 MEQ/L CHLORIDE (test code = 2215) 107 MEQ/L CARBON DIOXIDE (test code = 2206) 23 MEQ/L CALCIUM (test code = 2209) 8.9 MG/DL PROTEIN, TOTAL (test code = 2229) 6.8 G/DL ALBUMIN (test code = 2201) 4.1 G/DL CALC GLOBULIN (test code = 2240) 2.7 G/DL CALC A/G RATIO (test code = 2234) 1.5 RATIO BILIRUBIN, TOTAL (test code = 2207) <0.2 MG/DL ALKALINE PHOSPHATASE (test code = 2204) 95 U/L AST (test code = 2218) 14 U/L ALT (test code = 2219) 15 U/L Duarte McadamsTSH, THIRD [id number] 00:00:00* Test Item Value Reference Range Interpretation Comme nts TSH, THIRD GENERATION (test code = 2821) 11.300 UIU/ML Duarte McadamsFREE T4 (THYROXINE)2023-06-30 00:00:00* Test Item Value Reference Range Interpretation Comme nts FREE T4 (THYROXINE) (test co de = 2823) 0.98 NG/DL Duarte McadamsT3 [id number] 00:00:00* Test Item Value Reference Range Interpretation Comme nts T3 TOTAL (test code = 2818) 146 NG/DL Duarte McadamsCOMPREHENSIVE METABOLIC [id number] 00:00:00* Test Item Value Reference Range Interpretation Comme nts GLUCOSE (test code = 2217) 120 MG/DL BUN (test code = 2208) 9 MG/DL CREATININE (test code = 2214) 0.62 MG/DL eGFR (2020 CKD-EPI) (test code = 08862) 110 ML/MIN/1.73 CALC BUN/CREAT (test code = 2235) 15 RATIO SODIUM (test code = 2231) 141 MEQ/L POTASSIUM (test code = 2228) 4.0 MEQ/L CHLORIDE (test code = 2215) 107 MEQ/L CARBON DIOXIDE (test code = 2206) 23 MEQ/L CALCIUM (test code = 2209) 8.9 MG/DL PROTEIN, TOTAL (test code = 2229) 6.8 G/DL ALBUMIN (test code = 2201) 4.1 G/DL CALC GLOBULIN (test code = 2240) 2.7 G/DL CALC A/G RATIO (test code = 2234) 1.5 RATIO BILIRUBIN, TOTAL (test code = 2207) <0.2 MG/DL ALKALINE PHOSPHATASE (test code = 2204) 95 U/L AST (test code = 2218) 14 U/L ALT (test code = 2219) 15 U/L Duarte McadamsTSH, THIRD [id number] 00:00:00* Test Item Value Reference Range Interpretation Comme nts TSH, THIRD GENERATION (test code = 2821) 11.300 UIU/ML Duarte McadamsFREE T4 (THYROXINE)2023-06-30 00:00:00* Test Item Value Reference Range Interpretation Comme nts FREE T4 (THYROXINE) (test co de = 2823) 0.98 NG/DL Duarte McadamsT3 [id number] 00:00:00* Test Item Value Reference Range Interpretation Comme nts T3 TOTAL (test code = 2818) 146 NG/DL Duarte McadamsCOMPREHENSIVE METABOLIC [id number] 00:00:00* Test Item Value Reference Range Interpretation Comme nts GLUCOSE (test code = 2217) 120 MG/DL BUN (test code = 2208) 9 MG/DL CREATININE (test code = 2214) 0.62 MG/DL eGFR (2020 CKD-EPI) (test code = 64636) 110 ML/MIN/1.73 CALC BUN/CREAT (test code = 2235) 15 RATIO SODIUM (test code = 2231) 141 MEQ/L POTASSIUM (test code = 2228) 4.0 MEQ/L CHLORIDE (test code = 2215) 107 MEQ/L CARBON DIOXIDE (test code = 2206) 23 MEQ/L CALCIUM (test code = 2209) 8.9 MG/DL PROTEIN, TOTAL (test code = 2229) 6.8 G/DL ALBUMIN (test code = 2201) 4.1 G/DL CALC GLOBULIN (test code = 2240) 2.7 G/DL CALC A/G RATIO (test code = 2234) 1.5 RATIO BILIRUBIN, TOTAL (test code = 2207) <0.2 MG/DL ALKALINE PHOSPHATASE (test code = 2204) 95 U/L AST (test code = 2218) 14 U/L ALT (test code = 2219) 15 U/L Duarte McadamsTSH, THIRD [id number] 00:00:00* Test Item Value Reference Range Interpretation Comme nts TSH, THIRD GENERATION (test code = 2821) 11.300 UIU/ML Duarte McadamsFREE T4 (THYROXINE)2023-06-30 00:00:00* Test Item Value Reference Range Interpretation Comme nts FREE T4 (THYROXINE) (test co de = 2823) 0.98 NG/DL Duarte McadamsT3 [id number] 00:00:00* Test Item Value Reference Range Interpretation Comme nts T3 TOTAL (test code = 2818) 146 NG/DL Duatre McadamsCOMPREHENSIVE METABOLIC [id number] 00:00:00* Test Item Value Reference Range Interpretation Comme nts GLUCOSE (test code = 2217) 120 MG/DL BUN (test code = 2208) 9 MG/DL CREATININE (test code = 2214) 0.62 MG/DL eGFR (2020 CKD-EPI) (test code = 17305) 110 ML/MIN/1.73 CALC BUN/CREAT (test code = 2235) 15 RATIO SODIUM (test code = 2231) 141 MEQ/L POTASSIUM (test code = 2228) 4.0 MEQ/L CHLORIDE (test code = 2215) 107 MEQ/L CARBON DIOXIDE (test code = 2206) 23 MEQ/L CALCIUM (test code = 2209) 8.9 MG/DL PROTEIN, TOTAL (test code = 2229) 6.8 G/DL ALBUMIN (test code = 2201) 4.1 G/DL CALC GLOBULIN (test code = 2240) 2.7 G/DL CALC A/G RATIO (test code = 2234) 1.5 RATIO BILIRUBIN, TOTAL (test code = 2207) <0.2 MG/DL ALKALINE PHOSPHATASE (test code = 2204) 95 U/L AST (test code = 2218) 14 U/L ALT (test code = 2219) 15 U/L Duarte June, THIRD [id number] 00:00:00* Test Item Value Reference Range Interpretation Comme nts TSH, THIRD GENERATION (test code = 2821) 11.300 UIU/ML Duarte McadamsFREE T4 (THYROXINE)2023-06-30 00:00:00* Test Item Value Reference Range Interpretation Comme nts FREE T4 (THYROXINE) (test co de = 2823) 0.98 NG/DL Duarte McadamsT3 [id number] 00:00:00* Test Item Value Reference Range Interpretation Comme nts T3 TOTAL (test code = 2818) 146 NG/DL Duarte McadamsCOMPREHENSIVE METABOLIC [id number] 00:00:00* Test Item Value Reference Range Interpretation Comme nts GLUCOSE (test code = 2217) 120 MG/DL BUN (test code = 2208) 9 MG/DL CREATININE (test code = 2214) 0.62 MG/DL eGFR (2020 CKD-EPI) (test code = 20741) 110 ML/MIN/1.73 CALC BUN/CREAT (test code = 2235) 15 RATIO SODIUM (test code = 2231) 141 MEQ/L POTASSIUM (test code = 2228) 4.0 MEQ/L CHLORIDE (test code = 2215) 107 MEQ/L CARBON DIOXIDE (test code = 2206) 23 MEQ/L CALCIUM (test code = 2209) 8.9 MG/DL PROTEIN, TOTAL (test code = 2229) 6.8 G/DL ALBUMIN (test code = 2201) 4.1 G/DL CALC GLOBULIN (test code = 2240) 2.7 G/DL CALC A/G RATIO (test code = 2234) 1.5 RATIO BILIRUBIN, TOTAL (test code = 2207) <0.2 MG/DL ALKALINE PHOSPHATASE (test code = 2204) 95 U/L AST (test code = 2218) 14 U/L ALT (test code = 2219) 15 U/L Duarte F AustinTSH, THIRD [id number] 00:00:00* Test Item Value Reference Range Interpretation Comme nts TSH, THIRD GENERATION (test code = 2821) 11.300 UIU/ML Duarte McadamsVITAMIN D, 25 [id number] 04:25:40* Test Item Value Reference Range Interpretation Comme nts VITAMIN D, 25 OH (test code = 4958) 14 NG/ML SEE BELOW L EFFECTIVE 01/2023, PLEASE NOTE NEW METHODOLOGY IS ELECTROCHEMILUMINESCENCE BINDING ASSAY. NOTE: 25-HYDROXYVITAMIN D ASSAY INCLUDES 25-HYDROXYVITAMIN D2 AND D3. INTERPRETIVE RANGES PEDIATRIC (<17 YEARS) . . . . . . . . . . . NG/ML 20-100ADULT: INSUFFICIENT . . . . . . . . . . . . . . NG/ML <20 SUBOPTIMAL . . . . . . . . . . . . . . . NG/ML 20-29 OPTIMAL . . . . . . . . . . . . . . . . . NG/ML 30-100 VITAMIN [id number] 04:24:45* Test Item Value Reference Range Interpretation Comme nts VITAMIN B-12 (test code = 2840) 644 PG/ML 200-950 TSH, THIRD [id number] 04:24:00* Test Item Value Reference Range Interpretation Comme nts TSH, THIRD GENERATION (test code = 2821) 5.480 UIU/ML 0.400-4.100 H LIPID [id number] 04:10:37* Test Item Value Reference Range Interpretation Comme nts CHOLESTEROL (test code = 2210) 154 MG/DL <200 TRIGLYCERIDES (test code = 2232) 152 MG/DL <150 H HDL CHOLESTEROL (test code = 2220) 44 MG/DL >39 CALC LDL CHOL (test code = 2237) 85 MG/DL <100 NOTE: CALCULATED LDL IS BASED ON TAMIA-CARTER METHOD WHICHINCLUDES ADJUSTABLE TRIGLYCERIDE:VLDL CHOLESTEROL RATIO.THIS FACTOR VARIES BY MEASURED TRIGLYCERIDE AND NON-HDLCHOLESTEROL CONCENTRATIONS WITH INCREASED CALCULATED LDL SEENIN HIGHER TRIGLYCERIDE OR LOWER NON-HDL SPECIMENS. FOR MOREINFORMATION, SEE CLIENT ANNOUNCEMENT AT [email or web address] RISK RATIO LDL/HDL (test code = 2237) 1.93 RATIO <3.22 COMPREHENSIVE METABOLIC [id number] 04:10:37* Test Item Value Reference Range Interpretation Comme nts GLUCOSE (test code = 2216) 137 MG/DL 70-99 H BUN (test code = 2207) 7 MG/DL 6-20 CREATININE (test code = 2213) 0.67 MG/DL 0.60-1.30 eGFR (2020 CKD-EPI) (test code = 95342) 108 ML/MIN/1.73 >60 CALC BUN/CREAT (test code = 2234) 10 RATIO 6-28 SODIUM (test code = 2230) 139 MEQ/L 133-146 POTASSIUM (test code = 2227) 3.9 MEQ/L 3.5-5.4 CHLORIDE (test code = 2214) 103 MEQ/L 95-107 CARBON DIOXIDE (test code = 2205) 25 MEQ/L 19-31 CALCIUM (test code = 2208) 9.1 MG/DL 8.5-10.5 PROTEIN, TOTAL (test code = 2228) 7.1 G/DL 6.1-8.3 ALBUMIN (test code = 2200) 4.2 G/DL 3.5-5.2 CALC GLOBULIN (test code = 2240) 2.9 G/DL 1.9-3.7 CALC A/G RATIO (test code = 2233) 1.4 RATIO 1.0-2.6 BILIRUBIN, TOTAL (test code = 2206) 0.2 MG/DL See_Comment [Automated me ssage] The system which generated this result transmitted reference range: <=1.2. The reference range was not used to interpret this result as normal/abnormal. ALKALINE PHOSPHATASE (test code = 2203) 99 U/L 40-120 AST (test code = 2218) 12 U/L 9-40 ALT (test code = 2219) 22 U/L 5-40 [id number] 03:49:46* Test Item Value Reference Range Interpretation Comme nts MAGNESIUM (test code = 2226) 2.2 MG/DL 1.6-2.6 UNLESS OTHERWISE INDICATED, ALL TESTING PERFORMED AT [facility] [address] [place] [id number] [employer] PROFESSIONAL: NENA FERNANDEZ M.D. CLIA NUMBER [id number] [facility] [place]. [id number] HEMOGLOBIN [id number] 02:55:59* Test Item Value Reference Range Interpretation Comme nts HEMOGLOBIN A1c (test code = 84040) 6.2 % 4.2-5.6 H [employer] GUIDELINES FOR HGB A1C: PREDIABETES/INCREASED RISK . . . . . . . 5.7-6.4% DIAGNOSIS OF DIABETES . . . . . . . . . >=6.5% WITH CONFIRMATION OR APPROPRIATE SYMPTOMS NOTE: ASSAY MAY BE AFFECTED BY HEMOGLOBINOPATHIES (SICKLE CELL ANEMIA, S-C DISEASE, OTHERS) OR ARTIFICIALLY LOWERED BY DECREASED RED CELL SURVIVAL (HEMOLYTIC ANEMIAS, BLOOD LOSS, ETC.). CONSIDER ALTERNATE TESTING OR LABORATORY CONSULTATION. CBC W/AUTO DIFF WITH [id number] 02:25:06* Test Item Value Reference Range Interpretation Comme nts WBC (test code = 1001) 9.1 K/UL 3.5-11.0 RBC (test code = 1002) 4.83 M/UL 3.80-5.40 HEMOGLOBIN (test code = 1003) 11.1 G/DL 11.5-15.5 L HEMATOCRIT (test code = 1004) 35.0 % 34.0-45.0 MCV (test code = 1005) 72.5 fL 80.0-99.0 L MCH (test code = 1006) 23.0 PG 25.0-33.0 L MCHC (test code = 1007) 31.7 G/DL 31.0-36.0 RDW (test code = 1038) 15.8 % 11.5-15.0 H NEUTROPHILS (test code = 1008) 71.8 % LYMPHOCYTES (test code = 1010) 19.9 % MONOCYTES (test code = 1011) 5.5 % EOSINOPHILS (test code = 1012) 1.7 % BASOPHILS (test code = 1013) 0.2 % IMMATURE GRANULOCYTES (test code = 1036) 0.9 % NUCLEATED RBCS (test code = 1065) 0.0 /100 WBC'S See_Comment [Automated [employer]] The system which generated this result transmitted reference range: 0.0. The reference range was not used to interpret this result as normal/abnormal. PLATELET COUNT (test code = 1015) 353 K/UL 130-400 ABSOLUTE NEUTROPHILS (test code = 1066) 6.52 K/UL 1.50-7.50 ABSOLUTE LYMPHOCYTES (test code = 1067) 1.81 K/UL 1.00-4.00 ABSOLUTE MONOCYTES (test code = 1068) 0.50 K/UL 0.20-1.00 ABSOLUTE EOSINOPHILS (test code = 1040) 0.15 K/UL 0.00-0.50 ABSOLUTE BASOPHILS (test code = 1069) 0.02 K/UL 0.00-0.20 ABS IMMATURE GRANULOCYTES (test code = 1020) 0.08 K/UL 0.00-0.10 ABS NUCLEATED RBCS (test code = 51240) 0.00 K/UL 0.00-0.11 LIPID [id number] 00:00:00* Test Item Value Reference Range Interpretation Comme nts CHOLESTEROL (test code = 2210) 154 MG/DL TRIGLYCERIDES (test code = 2232) 152 MG/DL HDL CHOLESTEROL (test code = 2220) 44 MG/DL CALC LDL CHOL (test code = 2237) 85 MG/DL RISK RATIO LDL/HDL (test cod e = 2238) 1.93 RATIO Duarte F AbbeCOMPREHENSIVE METABOLIC [id number] 00:00:00* Test Item Value Reference Range Interpretation Comme nts GLUCOSE (test code = 2217) 137 MG/DL BUN (test code = 2208) 7 MG/DL CREATININE (test code = 2214) 0.67 MG/DL eGFR (2020 CKD-EPI) (test code = 82578) 108 ML/MIN/1.73 CALC BUN/CREAT (test code = 2235) 10 RATIO SODIUM (test code = 2231) 139 MEQ/L POTASSIUM (test code = 2228) 3.9 MEQ/L CHLORIDE (test code = 2215) 103 MEQ/L CARBON DIOXIDE (test code = 2206) 25 MEQ/L CALCIUM (test code = 2209) 9.1 MG/DL PROTEIN, TOTAL (test code = 2229) 7.1 G/DL ALBUMIN (test code = 2201) 4.2 G/DL CALC GLOBULIN (test code = 2240) 2.9 G/DL CALC A/G RATIO (test code = 2234) 1.4 RATIO BILIRUBIN, TOTAL (test code = 2207) 0.2 MG/DL ALKALINE PHOSPHATASE (test code = 2204) 99 U/L AST (test code = 2218) 12 U/L ALT (test code = 2219) 22 U/L Duarte LeungH, THIRD [id number] 00:00:00* Test Item Value Reference Range Interpretation Comme carola TSH, THIRD GENERATION (test code = 2821) 5.480 UIU/ML Duarte McadamsVITAMIN [id number] 00:00:00* Test Item Value Reference Range Interpretation Comme carola VITAMIN B-12 (test code = 2840) 644 PG/ML Duarte McadamsVITAMIN D, 25 [id number] 00:00:00* Test Item Value Reference Range Interpretation Comme carola VITAMIN D, 25 OH (test code = 4958) 14 NG/ML Duarte [id number] 00:00:00* Test Item Value Reference Range Interpretation Comme carola MAGNESIUM (test code = 2226) 2.2 MG/DL Duarte McadamsCBC W/AUTO [id number] 00:00:00* Test Item Value Reference Range Interpretation Comme nts WBC (test code = 1001) 9.1 K/UL RBC (test code = 1002) 4.83 M/UL HEMOGLOBIN (test code = 1003) 11.1 G/DL HEMATOCRIT (test code = 1004) 35.0 % MCV (test code = 1005) 72.5 fL MCH (test code = 1006) 23.0 PG MCHC (test code = 1007) 31.7 G/DL RDW (test code = 1038) 15.8 % NEUTROPHILS (test code = 1008) 71.8 % LYMPHOCYTES (test code = 1010) 19.9 % MONOCYTES (test code = 1011) 5.5 % EOSINOPHILS (test code = 1012) 1.7 % BASOPHILS (test code = 1013) 0.2 % IMMATURE GRANULOCYTES (test code = 1036) 0.9 % NUCLEATED RBCS (test code = 1065) 0.0 /100WBC'S PLATELET COUNT (test code = 1015) 353 K/UL ABSOLUTE NEUTROPHILS (test c ode = 1066) 6.52 K/UL ABSOLUTE LYMPHOCYTES (test c ode = 1067) 1.81 K/UL ABSOLUTE MONOCYTES (test cod e = 1068) 0.50 K/UL ABSOLUTE EOSINOPHILS (test c ode = 1040) 0.15 K/UL ABSOLUTE BASOPHILS (test cod e = 1069) 0.02 K/UL ABS IMMATURE GRANULOCYTES (t est code = 1020) 0.08 K/UL ABS NUCLEATED RBCS (test cod e = 72254) 0.00 K/UL Duarte McadamsHEMOGLOBIN [id number] 00:00:00* Test Item Value Reference Range Interpretation Comme nts HEMOGLOBIN A1c (test code = 49844) 6.2 % Duarte McadamsLIPID [id number] 00:00:00* Test Item Value Reference Range Interpretation Comme nts CHOLESTEROL (test code = 2210) 154 MG/DL TRIGLYCERIDES (test code = 2232) 152 MG/DL HDL CHOLESTEROL (test code = 2220) 44 MG/DL CALC LDL CHOL (test code = 2237) 85 MG/DL RISK RATIO LDL/HDL (test cod e = 2238) 1.93 RATIO Duarte McadamsCOMPREHENSIVE METABOLIC [id number] 00:00:00* Test Item Value Reference Range Interpretation Comme nts GLUCOSE (test code = 2217) 137 MG/DL BUN (test code = 2208) 7 MG/DL CREATININE (test code = 2214) 0.67 MG/DL eGFR (2020 CKD-EPI) (test code = 06830) 108 ML/MIN/1.73 CALC BUN/CREAT (test code = 2235) 10 RATIO SODIUM (test code = 2231) 139 MEQ/L POTASSIUM (test code = 2228) 3.9 MEQ/L CHLORIDE (test code = 2215) 103 MEQ/L CARBON DIOXIDE (test code = 2206) 25 MEQ/L CALCIUM (test code = 2209) 9.1 MG/DL PROTEIN, TOTAL (test code = 2229) 7.1 G/DL ALBUMIN (test code = 2201) 4.2 G/DL CALC GLOBULIN (test code = 2240) 2.9 G/DL CALC A/G RATIO (test code = 2234) 1.4 RATIO BILIRUBIN, TOTAL (test code = 2207) 0.2 MG/DL ALKALINE PHOSPHATASE (test code = 2204) 99 U/L AST (test code = 2218) 12 U/L ALT (test code = 2219) 22 U/L Duarte McadamsRIRI, THIRD [id number] 00:00:00* Test Item Value Reference Range Interpretation Comme carola TSH, THIRD GENERATION (test code = 2821) 5.480 UIU/ML Duarte McadamsVITAMIN [id number] 00:00:00* Test Item Value Reference Range Interpretation Comme carola VITAMIN B-12 (test code = 2840) 644 PG/ML Duarte McadamsVITAMIN D, 25 [id number] 00:00:00* Test Item Value Reference Range Interpretation Comme carola VITAMIN D, 25 OH (test code = 4958) 14 NG/ML Duarte [id number] 00:00:00* Test Item Value Reference Range Interpretation Comme carola MAGNESIUM (test code = 2226) 2.2 MG/DL Duarte McadamsCBC W/AUTO [id number] 00:00:00* Test Item Value Reference Range Interpretation Comme nts WBC (test code = 1001) 9.1 K/UL RBC (test code = 1002) 4.83 M/UL HEMOGLOBIN (test code = 1003) 11.1 G/DL HEMATOCRIT (test code = 1004) 35.0 % MCV (test code = 1005) 72.5 fL MCH (test code = 1006) 23.0 PG MCHC (test code = 1007) 31.7 G/DL RDW (test code = 1038) 15.8 % NEUTROPHILS (test code = 1008) 71.8 % LYMPHOCYTES (test code = 1010) 19.9 % MONOCYTES (test code = 1011) 5.5 % EOSINOPHILS (test code = 1012) 1.7 % BASOPHILS (test code = 1013) 0.2 % IMMATURE GRANULOCYTES (test code = 1036) 0.9 % NUCLEATED RBCS (test code = 1065) 0.0 /100WBC'S PLATELET COUNT (test code = 1015) 353 K/UL ABSOLUTE NEUTROPHILS (test c ode = 1066) 6.52 K/UL ABSOLUTE LYMPHOCYTES (test c ode = 1067) 1.81 K/UL ABSOLUTE MONOCYTES (test cod e = 1068) 0.50 K/UL ABSOLUTE EOSINOPHILS (test c ode = 1040) 0.15 K/UL ABSOLUTE BASOPHILS (test cod e = 1069) 0.02 K/UL ABS IMMATURE GRANULOCYTES (t est code = 1020) 0.08 K/UL ABS NUCLEATED RBCS (test cod e = 43081) 0.00 K/UL Duarte McadamsHEMOGLOBIN [id number] 00:00:00* Test Item Value Reference Range Interpretation Comme carola HEMOGLOBIN A1c (test code = 78805) 6.2 % Duarte McadamsLIPID [id number] 00:00:00* Test Item Value Reference Range Interpretation Comme nts CHOLESTEROL (test code = 2210) 154 MG/DL TRIGLYCERIDES (test code = 2232) 152 MG/DL HDL CHOLESTEROL (test code = 2220) 44 MG/DL CALC LDL CHOL (test code = 2237) 85 MG/DL RISK RATIO LDL/HDL (test cod e = 2238) 1.93 RATIO Duarte McadamsCOMPREHENSIVE METABOLIC [id number] 00:00:00* Test Item Value Reference Range Interpretation Comme nts GLUCOSE (test code = 2217) 137 MG/DL BUN (test code = 2208) 7 MG/DL CREATININE (test code = 2214) 0.67 MG/DL eGFR (2020 CKD-EPI) (test code = 95231) 108 ML/MIN/1.73 CALC BUN/CREAT (test code = 2235) 10 RATIO SODIUM (test code = 2231) 139 MEQ/L POTASSIUM (test code = 2228) 3.9 MEQ/L CHLORIDE (test code = 2215) 103 MEQ/L CARBON DIOXIDE (test code = 2206) 25 MEQ/L CALCIUM (test code = 2209) 9.1 MG/DL PROTEIN, TOTAL (test code = 2229) 7.1 G/DL ALBUMIN (test code = 2201) 4.2 G/DL CALC GLOBULIN (test code = 2240) 2.9 G/DL CALC A/G RATIO (test code = 2234) 1.4 RATIO BILIRUBIN, TOTAL (test code = 2207) 0.2 MG/DL ALKALINE PHOSPHATASE (test code = 2204) 99 U/L AST (test code = 2218) 12 U/L ALT (test code = 2219) 22 U/L Duarte McadamsTSH, THIRD [id number] 00:00:00* Test Item Value Reference Range Interpretation Comme carola TSH, THIRD GENERATION (test code = 2821) 5.480 UIU/ML Duarte McadamsVITAMIN [id number] 00:00:00* Test Item Value Reference Range Interpretation Comme nts VITAMIN B-12 (test code = 2840) 644 PG/ML Duarte McadamsVITAMIN D, 25 [id number] 00:00:00* Test Item Value Reference Range Interpretation Comme nts VITAMIN D, 25 OH (test code = 4958) 14 NG/ML Duarte [id number] 00:00:00* Test Item Value Reference Range Interpretation Comme nts MAGNESIUM (test code = 2226) 2.2 MG/DL Duarte McadamsCBC W/AUTO [id number] 00:00:00* Test Item Value Reference Range Interpretation Comme nts WBC (test code = 1001) 9.1 K/UL RBC (test code = 1002) 4.83 M/UL HEMOGLOBIN (test code = 1003) 11.1 G/DL HEMATOCRIT (test code = 1004) 35.0 % MCV (test code = 1005) 72.5 fL MCH (test code = 1006) 23.0 PG MCHC (test code = 1007) 31.7 G/DL RDW (test code = 1038) 15.8 % NEUTROPHILS (test code = 1008) 71.8 % LYMPHOCYTES (test code = 1010) 19.9 % MONOCYTES (test code = 1011) 5.5 % EOSINOPHILS (test code = 1012) 1.7 % BASOPHILS (test code = 1013) 0.2 % IMMATURE GRANULOCYTES (test code = 1036) 0.9 % NUCLEATED RBCS (test code = 1065) 0.0 /100WBC'S PLATELET COUNT (test code = 1015) 353 K/UL ABSOLUTE NEUTROPHILS (test c ode = 1066) 6.52 K/UL ABSOLUTE LYMPHOCYTES (test c ode = 1067) 1.81 K/UL ABSOLUTE MONOCYTES (test cod e = 1068) 0.50 K/UL ABSOLUTE EOSINOPHILS (test c ode = 1040) 0.15 K/UL ABSOLUTE BASOPHILS (test cod e = 1069) 0.02 K/UL ABS IMMATURE GRANULOCYTES (t est code = 1020) 0.08 K/UL ABS NUCLEATED RBCS (test cod e = 39299) 0.00 K/UL Duarte McadamsHEMOGLOBIN [id number] 00:00:00* Test Item Value Reference Range Interpretation Comme carola HEMOGLOBIN A1c (test code = 02359) 6.2 % Duarte McadamsLIPID [id number] 00:00:00* Test Item Value Reference Range Interpretation Comme nts CHOLESTEROL (test code = 2210) 154 MG/DL TRIGLYCERIDES (test code = 2232) 152 MG/DL HDL CHOLESTEROL (test code = 2220) 44 MG/DL CALC LDL CHOL (test code = 2237) 85 MG/DL RISK RATIO LDL/HDL (test cod e = 2238) 1.93 RATIO Duarte McadamsCOMPREHENSIVE METABOLIC [id number] 00:00:00* Test Item Value Reference Range Interpretation Comme nts GLUCOSE (test code = 2217) 137 MG/DL BUN (test code = 2208) 7 MG/DL CREATININE (test code = 2214) 0.67 MG/DL eGFR (2020 CKD-EPI) (test code = 60741) 108 ML/MIN/1.73 CALC BUN/CREAT (test code = 2235) 10 RATIO SODIUM (test code = 2231) 139 MEQ/L POTASSIUM (test code = 2228) 3.9 MEQ/L CHLORIDE (test code = 2215) 103 MEQ/L CARBON DIOXIDE (test code = 2206) 25 MEQ/L CALCIUM (test code = 2209) 9.1 MG/DL PROTEIN, TOTAL (test code = 2229) 7.1 G/DL ALBUMIN (test code = 2201) 4.2 G/DL CALC GLOBULIN (test code = 2240) 2.9 G/DL CALC A/G RATIO (test code = 2234) 1.4 RATIO BILIRUBIN, TOTAL (test code = 2207) 0.2 MG/DL ALKALINE PHOSPHATASE (test code = 2204) 99 U/L AST (test code = 2218) 12 U/L ALT (test code = 2219) 22 U/L Duarte McadamsTSH, THIRD [id number] 00:00:00* Test Item Value Reference Range Interpretation Comme [facility] TSH, THIRD GENERATION (test code = 2821) 5.480 UIU/ML Duarte McadamsVITAMIN [id number] 00:00:00* Test Item Value Reference Range Interpretation Comme carola VITAMIN B-12 (test code = 2840) 644 PG/ML Duarte McadamsVITAMIN D, 25 [id number] 00:00:00* Test Item Value Reference Range Interpretation Comme nts VITAMIN D, 25 OH (test code = 4958) 14 NG/ML Duarte [id number] 00:00:00* Test Item Value Reference Range Interpretation Comme nts MAGNESIUM (test code = 2226) 2.2 MG/DL Duarte McadamsCBC W/AUTO [id number] 00:00:00* Test Item Value Reference Range Interpretation Comme nts WBC (test code = 1001) 9.1 K/UL RBC (test code = 1002) 4.83 M/UL HEMOGLOBIN (test code = 1003) 11.1 G/DL HEMATOCRIT (test code = 1004) 35.0 % MCV (test code = 1005) 72.5 fL MCH (test code = 1006) 23.0 PG MCHC (test code = 1007) 31.7 G/DL RDW (test code = 1038) 15.8 % NEUTROPHILS (test code = 1008) 71.8 % LYMPHOCYTES (test code = 1010) 19.9 % MONOCYTES (test code = 1011) 5.5 % EOSINOPHILS (test code = 1012) 1.7 % BASOPHILS (test code = 1013) 0.2 % IMMATURE GRANULOCYTES (test code = 1036) 0.9 % NUCLEATED RBCS (test code = 1065) 0.0 /100WBC'S PLATELET COUNT (test code = 1015) 353 K/UL ABSOLUTE NEUTROPHILS (test c ode = 1066) 6.52 K/UL ABSOLUTE LYMPHOCYTES (test c ode = 1067) 1.81 K/UL ABSOLUTE MONOCYTES (test cod e = 1068) 0.50 K/UL ABSOLUTE EOSINOPHILS (test c ode = 1040) 0.15 K/UL ABSOLUTE BASOPHILS (test cod e = 1069) 0.02 K/UL ABS IMMATURE GRANULOCYTES (t est code = 1020) 0.08 K/UL ABS NUCLEATED RBCS (test cod e = 86702) 0.00 K/UL Duarte McadamsHEMOGLOBIN [id number] 00:00:00* Test Item Value Reference Range Interpretation Comme nts HEMOGLOBIN A1c (test code = 80218) 6.2 % Duarte McadamsLIPID [id number] 00:00:00* Test Item Value Reference Range Interpretation Comme nts CHOLESTEROL (test code = 2210) 154 MG/DL TRIGLYCERIDES (test code = 2232) 152 MG/DL HDL CHOLESTEROL (test code = 2220) 44 MG/DL CALC LDL CHOL (test code = 2237) 85 MG/DL RISK RATIO LDL/HDL (test cod e = 2238) 1.93 RATIO Duarte McadamsCOMPREHENSIVE METABOLIC [id number] 00:00:00* Test Item Value Reference Range Interpretation Comme nts GLUCOSE (test code = 2217) 137 MG/DL BUN (test code = 2208) 7 MG/DL CREATININE (test code = 2214) 0.67 MG/DL eGFR (2020 CKD-EPI) (test code = 70974) 108 ML/MIN/1.73 CALC BUN/CREAT (test code = 2235) 10 RATIO SODIUM (test code = 2231) 139 MEQ/L POTASSIUM (test code = 2228) 3.9 MEQ/L CHLORIDE (test code = 2215) 103 MEQ/L CARBON DIOXIDE (test code = 2206) 25 MEQ/L CALCIUM (test code = 2209) 9.1 MG/DL PROTEIN, TOTAL (test code = 2229) 7.1 G/DL ALBUMIN (test code = 2201) 4.2 G/DL CALC GLOBULIN (test code = 2240) 2.9 G/DL CALC A/G RATIO (test code = 2234) 1.4 RATIO BILIRUBIN, TOTAL (test code = 2207) 0.2 MG/DL ALKALINE PHOSPHATASE (test code = 2204) 99 U/L AST (test code = 2218) 12 U/L ALT (test code = 2219) 22 U/L Duarte McadamsTSH, THIRD [id number] 00:00:00* Test Item Value Reference Range Interpretation Comme [facility] TSH, THIRD GENERATION (test code = 2821) 5.480 UIU/ML Duarte McadamsVITAMIN [id number] 00:00:00* Test Item Value Reference Range Interpretation Comme [facility] VITAMIN B-12 (test code = 2840) 644 PG/ML Duarte McadamsVITAMIN D, 25 [id number] 00:00:00* Test Item Value Reference Range Interpretation Comme [facility] VITAMIN D, 25 OH (test code = 4958) 14 NG/ML Duarte [id number] 00:00:00* Test Item Value Reference Range Interpretation Comme nts MAGNESIUM (test code = 2226) 2.2 MG/DL Duarte McadamsCBC W/AUTO [id number] 00:00:00* Test Item Value Reference Range Interpretation Comme nts WBC (test code = 1001) 9.1 K/UL RBC (test code = 1002) 4.83 M/UL HEMOGLOBIN (test code = 1003) 11.1 G/DL HEMATOCRIT (test code = 1004) 35.0 % MCV (test code = 1005) 72.5 fL MCH (test code = 1006) 23.0 PG MCHC (test code = 1007) 31.7 G/DL RDW (test code = 1038) 15.8 % NEUTROPHILS (test code = 1008) 71.8 % LYMPHOCYTES (test code = 1010) 19.9 % MONOCYTES (test code = 1011) 5.5 % EOSINOPHILS (test code = 1012) 1.7 % BASOPHILS (test code = 1013) 0.2 % IMMATURE GRANULOCYTES (test code = 1036) 0.9 % NUCLEATED RBCS (test code = 1065) 0.0 /100WBC'S PLATELET COUNT (test code = 1015) 353 K/UL ABSOLUTE NEUTROPHILS (test c ode = 1066) 6.52 K/UL ABSOLUTE LYMPHOCYTES (test c ode = 1067) 1.81 K/UL ABSOLUTE MONOCYTES (test cod e = 1068) 0.50 K/UL ABSOLUTE EOSINOPHILS (test c ode = 1040) 0.15 K/UL ABSOLUTE BASOPHILS (test cod e = 1069) 0.02 K/UL ABS IMMATURE GRANULOCYTES (t est code = 1020) 0.08 K/UL ABS NUCLEATED RBCS (test cod e = 86334) 0.00 K/UL Duarte McadamsHEMOGLOBIN [id number] 00:00:00* Test Item Value Reference Range Interpretation Comme nts HEMOGLOBIN A1c (test code = 05900) 6.2 % Duarte McadamsLIPID [id number] 00:00:00* Test Item Value Reference Range Interpretation Comme nts CHOLESTEROL (test code = 2210) 154 MG/DL TRIGLYCERIDES (test code = 2232) 152 MG/DL HDL CHOLESTEROL (test code = 2220) 44 MG/DL CALC LDL CHOL (test code = 2237) 85 MG/DL RISK RATIO LDL/HDL (test cod e = 2238) 1.93 RATIO Duarte McadamsCOMPREHENSIVE METABOLIC [id number] 00:00:00* Test Item Value Reference Range Interpretation Comme nts GLUCOSE (test code = 2217) 137 MG/DL BUN (test code = 2208) 7 MG/DL CREATININE (test code = 2214) 0.67 MG/DL eGFR (2020 CKD-EPI) (test code = 45596) 108 ML/MIN/1.73 CALC BUN/CREAT (test code = 2235) 10 RATIO SODIUM (test code = 223) 139 MEQ/L POTASSIUM (test code = 2228) 3.9 MEQ/L CHLORIDE (test code = 2215) 103 MEQ/L CARBON DIOXIDE (test code = 2206) 25 MEQ/L CALCIUM (test code = 2209) 9.1 MG/DL PROTEIN, TOTAL (test code = 2229) 7.1 G/DL ALBUMIN (test code = 2201) 4.2 G/DL CALC GLOBULIN (test code = 2240) 2.9 G/DL CALC A/G RATIO (test code = 2234) 1.4 RATIO BILIRUBIN, TOTAL (test code = 2207) 0.2 MG/DL ALKALINE PHOSPHATASE (test code = 2204) 99 U/L AST (test code = 2218) 12 U/L ALT (test code = 2219) 22 U/L Duarte McadamsTSH, THIRD [id number] 00:00:00* Test Item Value Reference Range Interpretation Comme [facility] TSH, THIRD GENERATION (test code = 2821) 5.480 UIU/ML Duarte McadamsVITAMIN [id number] 00:00:00* Test Item Value Reference Range Interpretation Comme [facility] VITAMIN B-12 (test code = 2840) 644 PG/ML Duarte McadamsVITAMIN D, 25 [id number] 00:00:00* Test Item Value Reference Range Interpretation Comme [facility] VITAMIN D, 25 OH (test code = 4958) 14 NG/ML Duarte [id number] 00:00:00* Test Item Value Reference Range Interpretation Comme [facility] MAGNESIUM (test code = 2226) 2.2 MG/DL Duarte McadamsCBC W/AUTO [id number] 00:00:00* Test Item Value Reference Range Interpretation Comme nts WBC (test code = 1001) 9.1 K/UL RBC (test code = 1002) 4.83 M/UL HEMOGLOBIN (test code = 1003) 11.1 G/DL HEMATOCRIT (test code = 1004) 35.0 % MCV (test code = 1005) 72.5 fL MCH (test code = 1006) 23.0 PG MCHC (test code = 1007) 31.7 G/DL RDW (test code = 1038) 15.8 % NEUTROPHILS (test code = 1008) 71.8 % LYMPHOCYTES (test code = 1010) 19.9 % MONOCYTES (test code = 1011) 5.5 % EOSINOPHILS (test code = 1012) 1.7 % BASOPHILS (test code = 1013) 0.2 % IMMATURE GRANULOCYTES (test code = 1036) 0.9 % NUCLEATED RBCS (test code = 1065) 0.0 /100WBC'S PLATELET COUNT (test code = 1015) 353 K/UL ABSOLUTE NEUTROPHILS (test c ode = 1066) 6.52 K/UL ABSOLUTE LYMPHOCYTES (test c ode = 1067) 1.81 K/UL ABSOLUTE MONOCYTES (test cod e = 1068) 0.50 K/UL ABSOLUTE EOSINOPHILS (test c ode = 1040) 0.15 K/UL ABSOLUTE BASOPHILS (test cod e = 1069) 0.02 K/UL ABS IMMATURE GRANULOCYTES (t est code = 1020) 0.08 K/UL ABS NUCLEATED RBCS (test cod e = 59040) 0.00 K/UL Duarte McadamsHEMOGLOBIN [id number] 00:00:00* Test Item Value Reference Range Interpretation Comme nts HEMOGLOBIN A1c (test code = 03425) 6.2 % Duarte ClayLTURE, [id number] 00:00:00* Test Item Value Reference Range Interpretation Comme nts CULTURE, URINE (test code = 35438) SPECIMEN NUMBER: [id number] Duarte McadamsCULTURE, [id number] 00:00:00* Test Item Value Reference Range Interpretation Comme nts CULTURE, URINE (test code = 82428) SPECIMEN NUMBER: [id number] Duarte McadamsCULTURE, [id number] 00:00:00* Test Item Value Reference Range Interpretation Comme nts CULTURE, URINE (test code = 11612) SPECIMEN NUMBER: [id number] Duarte McadamsCULTURE, [id number] 00:00:00* Test Item Value Reference Range Interpretation Comme nts CULTURE, URINE (test code = 25647) SPECIMEN NUMBER: [id number] Duarte McadamsCULTURE, [id number] 00:00:00* Test Item Value Reference Range Interpretation Comme nts CULTURE, URINE (test code = 82626) SPECIMEN NUMBER: [id number] Duarte McadamsCULTURE, [id number] 00:00:00* Test Item Value Reference Range Interpretation Comme nts CULTURE, URINE (test code = 81921) SPECIMEN NUMBER: [id number] Duarte Olsen [facility] [id number] 00:00:00* Test Item Value Reference Range Interpretation Comme nts LADARIUS SPECIES (test code = ) NEGATIVE G. VAGINALIS (test code = 25714) POSITIVE T. VAGINALIS (test code = 41836) NEGATIVE Duarte Olsen [facility] [id number] 00:00:00* Test Item Value Reference Range Interpretation Comme nts LADARIUS SPECIES (test code = 69683) NEGATIVE G. VAGINALIS (test code = 33772) POSITIVE T. VAGINALIS (test code = 99770) NEGATIVE Duarte Olsen [facility] [id number] 00:00:00* Test Item Value Reference Range Interpretation Comme nts LADARIUS SPECIES (test code = 00989) NEGATIVE G. VAGINALIS (test code = 03511) POSITIVE T. VAGINALIS (test code = 17229) NEGATIVE Duarte Olsen [facility] [id number] 00:00:00* Test Item Value Reference Range Interpretation Comme nts LADARIUS SPECIES (test code = 31023) NEGATIVE G. VAGINALIS (test code = 47329) POSITIVE T. VAGINALIS (test code = 67209) NEGATIVE Duarte Olsen [facility] [id number] 00:00:00* Test Item Value Reference Range Interpretation Comme nts LADARIUS SPECIES (test code = 71971) NEGATIVE G. VAGINALIS (test code = 98038) POSITIVE T. VAGINALIS (test code = 06886) NEGATIVE Duarte Olsen [facility] [id number] 00:00:00* Test Item Value Reference Range Interpretation Comme nts LADARIUS SPECIES (test code = 08910) NEGATIVE G. VAGINALIS (test code = ) POSITIVE T. VAGINALIS (test code = 04845) NEGATIVE Duarte McadamsPAP TEST, THINPREP, [id number] 09:49:08* Test Item Value Reference Range Interpretation Comme nts SOURCE: (test code = 8001) Cervical SLIDES: (test code = 8011) 1 LMP: (test code = 8021) 12/23/2021 SPECIMEN ADEQUACY: (test code = 88357) (NOTE) Satisfactory for evaluation. Endocervical cells/transformation zone component not identified. INTERPRETATION: (test code = 63444) NILM/NO EPITH. ABNORMALITY;SEE BELOW --- - NEGATIVE FOR INTRAEPITHELIAL LESION OR MALIGNANCY (NILM) ---- LIME VAT TENDER : (test code = 8101) KORY Manzo (ASCP) LOCATION: (test code = 50091) (NOTE) Specimens proces sed and interpreted at [facility], [address] [place] [address], , CLIA: [id number] CPT: (test code = 8140) (NOTE) 10023 UNLESS OTH ERWISE INDICATED, COMPUTER AIDED AND LIME VAT TENDER SCREENING PERFORMED. The Pap test is a screening test with an inherent, but low probability of error. Your patient should be reminded to consult you immediately if she experiences any suspicious signs or symptoms, regardless of her Pap test result. An alternate report format containing images or consolidated prior Pap history is available as applicable. HPV HIGH RISK WITH GENOTYPE, [id number] 09:41:10* Test Item Value Reference Range Interpretation Comme nts HPV HIGH RISK INTERP (test code = 08868) NEGATIVE NEGATIVE HPV 16 (test code = 92831) NEGATIVE HPV 18 (test code = 52556) NEGATIVE HPV, HR, OTHER GENOTYPES (test code = 55341) NEGATIVE Testing methodol fabricio is real-time PCR utilizing hydrolysis probes with the 2NGageUas [id number] system. The test individually detects genotypes 16 and 18, as well as the other 12 high risk types (31,33,35,39,45,51,52,56 ,58,59,66,68). The expected result is negative. A negative result does not rule out the presence of HPV not included in the genotype set, a low level of infection or specimen sampling error. UNLESS OTHERWISE INDICATED, ALL TESTING PERFORMED [facility] [employer], [facility]. [address] [place] [address] [employer]ILLED N[employer]IL[employer]IES PROFESSIONAL: SUSAN GOTTI M.D. [place] NUMBER [id number] [facility] [place]. [id number] PAP TEST, THINPREP, [id number] 00:00:00* Test Item Value Reference Range Interpretation Comme nts SOURCE: (test code = 8001) Cervical SLIDES: (test code = 8011) 1 LMP: (test code = 8021) 12/23/2021 SPECIMEN ADEQUACY: (test code = 20588) (NOTE) INTERPRETATION: (test code = 03785) NILM/NO EPITH. ABNORMALITY;SEE BELOW LIME VAT TENDER: (test code = 8101) KORY Manzo (ASCP) LOCATION: (test code = 52146) (NOTE) CPT: (test code = 8140) (NOTE) Duarte Pretty AustinHPV HIGH RISK WITH GENOTYPE, [id number] 00:00:00* Test Item Value Reference Range Interpretation Comme nts HPV HIGH RISK INTERP (test c ode = 51022) NEGATIVE HPV 16 (test code = 87740) NEGATIVE HPV 18 (test code = 73213) NEGATIVE HPV, HR, OTHER GENOTYPES (te st code = 94124) NEGATIVE Duarte McadamsPAP TEST, THINPREP, [id number] 00:00:00* Test Item Value Reference Range Interpretation Comme nts SOURCE: (test code = 8001) Cervical SLIDES: (test code = 8011) 1 LMP: (test code = 8021) 12/23/2021 SPECIMEN ADEQUACY: (test code = 51223) (NOTE) INTERPRETATION: (test code = 60957) NILM/NO EPITH. ABNORMALITY;SEE BELOW LIME VAT TENDER: (test code = 8101) [facility] [place] (ASCP) LOCATION: (test code = 69337) (NOTE) CPT: (test code = 8140) (NOTE) Duarte F AustinHPV HIGH RISK WITH GENOTYPE, [id number] 00:00:00* Test Item Value Reference Range Interpretation Comme nts HPV HIGH RISK INTERP (test c ode = 86733) NEGATIVE HPV 16 (test code = 10119) NEGATIVE HPV 18 (test code = 29107) NEGATIVE HPV, HR, OTHER GENOTYPES (te st code = 99092) NEGATIVE Duarte Olsen AustinPAP TEST, THINPREP, [id number] 00:00:00* Test Item Value Reference Range Interpretation Comme nts SOURCE: (test code = 8001) Cervical SLIDES: (test code = 8011) 1 LMP: (test code = 8021) 12/23/2021 SPECIMEN ADEQUACY: (test code = 39611) (NOTE) INTERPRETATION: (test code = 26183) NILM/NO EPITH. ABNORMALITY;SEE BELOW LIME VAT TENDER: (test code = 8101) Christiana Lin [place] (ASCP) LOCATION: (test code = 79361) (NOTE) CPT: (test code = 8140) (NOTE) Duarte F AustinHPV HIGH RISK WITH GENOTYPE, [id number] 00:00:00* Test Item Value Reference Range Interpretation Comme nts HPV HIGH RISK INTERP (test c ode = 92130) NEGATIVE HPV 16 (test code = 51095) NEGATIVE HPV 18 (test code = 15950) NEGATIVE HPV, HR, OTHER GENOTYPES (te st code = 08239) NEGATIVE Duarte F AustinPAP TEST, THINPREP, [id number] 00:00:00* Test Item Value Reference Range Interpretation Comme nts SOURCE: (test code = 8001) Cervical SLIDES: (test code = 8011) 1 LMP: (test code = 8021) 12/23/2021 SPECIMEN ADEQUACY: (test code = 08560) (NOTE) INTERPRETATION: (test code = 57309) NILM/NO EPITH. ABNORMALITY;SEE BELOW LIME VAT TENDER: (test code = 8101) Christiana Tatum, [place] (ASCP) LOCATION: (test code = 04250) (NOTE) CPT: (test code = 8140) (NOTE) Duarte Olsen AustinHPV HIGH RISK WITH GENOTYPE, [id number] 00:00:00* Test Item Value Reference Range Interpretation Comme nts HPV HIGH RISK INTERP (test c ode = 53661) NEGATIVE HPV 16 (test code = 99840) NEGATIVE HPV 18 (test code = 81192) NEGATIVE HPV, HR, OTHER GENOTYPES (te st code = 30993) NEGATIVE Duarte Olsen AustinPAP TEST, THINPREP, [id number] 00:00:00* Test Item Value Reference Range Interpretation Comme nts SOURCE: (test code = 8001) Cervical SLIDES: (test code = 8011) 1 LMP: (test code = 8021) 12/23/2021 SPECIMEN ADEQUACY: (test code = 36838) (NOTE) INTERPRETATION: (test code = 92671) NILM/NO EPITH. ABNORMALITY;SEE BELOW LIME VAT TENDER: (test code = 8101) [place], [place] (ASCP) LOCATION: (test code = 20965) (NOTE) CPT: (test code = 8140) (NOTE) Duarte Olsen AustinHPV HIGH RISK WITH GENOTYPE, [id number] 00:00:00* Test Item Value Reference Range Interpretation Comme nts HPV HIGH RISK INTERP (test c ode = 65626) NEGATIVE HPV 16 (test code = 81233) NEGATIVE HPV 18 (test code = 97589) NEGATIVE HPV, HR, OTHER GENOTYPES (te st code = 42350) NEGATIVE Duarte F AustinPAP TEST, THINPREP, [id number] 00:00:00* Test Item Value Reference Range Interpretation Comme nts SOURCE: (test code = 8001) Cervical SLIDES: (test code = 8011) 1 LMP: (test code = 8021) 12/23/2021 SPECIMEN ADEQUACY: (test code = 94977) (NOTE) INTERPRETATION: (test code = 56767) NILM/NO EPITH. ABNORMALITY;SEE BELOW LIME VAT TENDER: (test code = 8101) KORY Manzo (ASCP) LOCATION: (test code = 11738) (NOTE) CPT: (test code = 8140) (NOTE) Duarte McadamsHPV HIGH RISK WITH GENOTYPE, [id number] 00:00:00* Test Item Value Reference Range Interpretation Comme nts HPV HIGH RISK INTERP (test c ode = 89965) NEGATIVE HPV 16 (test code = 60458) NEGATIVE HPV 18 (test code = 39168) NEGATIVE HPV, HR, OTHER GENOTYPES (te st code = 80505) NEGATIVE Duarte Olsen Abbe- CT HEAD/BRAIN W/O [id number] 14:37:00 [facility] : 1975 Sex: F FAX: Sivan Louis MD [place]: St: PRE Name: CIPRIANO COHEN [facility] : 1975 Age/S: 45/F [address] [facility] [id number] [place]: [place] [id number] Acct: [id number] Dis Date: Status: PRE ER PHONE #: [phone] Exam Date: 12/01/2020 1426 FAX #: [phone] Reason: SYNCOPE EXAMS: CPT CODE: [id number] CT HEAD/BRAIN W/O CONT 24972 CLINICAL HISTORY: Syncop e, passed out. CT brain, unenhanced. Reformatted sagittal and coronal images. COMPARISON: None. Automated exposure control, iterative reconstruction technique, and/or adjustment of mA and/or kV according to patient's size was utilized for optimum radiation dose reduction. An unenhanced study of thebrain was performed. Symmetric cortical pattern is found. [...] Sivan Santos MD Technologist: NADINE MURRAY Trnscrd Dt/Tm:12/01/2020 (1437) t.[id number] Orig Print D/T: S: 12/01/2020 (1440 PAGE 1 Signed ReportCOMPREHENSIVE METABOLIC [id number] 14:34:00* Test Item Value Reference Range Interpretation Comme nts SODIUM (test code = NA) 143 mmol/l 134.0-147.0 N POTASSIUM (test code = K) 3.7 mmol/L 3.6-5.2 N CHLORIDE (test code = CL) 108 mmol/l 98.0-107.0 H CARBON DIOXIDE (test code = CO2) 25.9 mmol/l 21.0-33.0 N ANION GAP (test code = GAP) 12.8 0-20 N GLUCOSE (test code = GLU) 112 mg/dl 70.0-110.0 H BLOOD UREA NITROGEN (test co de = BUN) 9 mg/dl 7.0-18.0 N CREATININE (test code = CREAT) 0.73 mg/dL 0.60-1.30 N GFR NON BLACK (test code = GFRNONBLACK) 91 mL/min 95-105 L GFR BLACK (test code = GFRBLACK) 110 mL/min 115-127 L TOTAL PROTEIN (test code = PROT) 8.1 GM/DL 6.0-8.1 N ALBUMIN (test code = ALB) 3.9 gm/dL 3.2-4.7 N CALCIUM (test code = CA) 8.3 mg/dl 8.0-10.5 N BILIRUBIN TOTAL (test code = BILT) 0.3 mg/dl 0.0-1.0 N SGOT/AST (test code = AST) 9 Units/L 15-37 L SGPT/ALT (test code = ALT) 23 Units/L 12.0-78.0 N ALKALINE PHOSPHATASE TOTAL ( test code = ALKP) 99 Units/L 50.0-136.0 N [id number] 14:34:00* Test Item Value Reference Range Interpretation Comme [facility] LIPASE (test code = LIP) 313 Units/L 65.0-230.0 H B-TYPE NATRIURETIC [id number] 14:34:00* Test Item Value Reference Range Interpretation Comme nts B-TYPE NATRIURETIC PEPTIDE ( test code = BNP) 22.0 PG/ML 5-100 N CARDIAC ENZYMES [id number] 14:34:00* Test Item Value Reference Range Interpretation Comme nts CREATINE KINASE (CK) (test code = CK) 37 Units/L 21-215 N TROPONIN-I (test code = TROPI) <0.02 NG/ML 0.00-0.06 N REFERENCE RANGE TROPONIN I HEALTHY INDIVIDUALS: <0.06 ng/mL R/O ISCHEMIA: 0.07 - 0.60 ng/mL CUT-OFF RANGE FOR AMI: 0.60 - 1.5 ng/mL COMPREHENSIVE METABOLIC [id number] 14:32:00* Test Item Value Reference Range Interpretation Comme nts SODIUM (test code = NA) 143 mmol/l 134.0-147.0 N POTASSIUM (test code = K) 3.7 mmol/L 3.6-5.2 N CHLORIDE (test code = CL) 108 mmol/l 98.0-107.0 H CARBON DIOXIDE (test code = CO2) 25.9 mmol/l 21.0-33.0 N ANION GAP (test code = GAP) 12.8 0-20 N GLUCOSE (test code = GLU) mg/dl 70.0-110.0 BLOOD UREA NITROGEN (test co de = BUN) mg/dl 7.0-18.0 CREATININE (test code = CREAT) mg/dL 0.60-1.30 GFR NON BLACK (test code = GFRNONBLACK) mL/min 95-105 GFR BLACK (test code = GFRBLACK) mL/min 115-127 TOTAL PROTEIN (test code = PROT) gm/dL 6.4-8.2 ALBUMIN (test code = ALB) gm/dl 3.2-4.7 CALCIUM (test code = CA) mg/dl 8.0-10.5 BILIRUBIN TOTAL (test code = BILT) mg/dl 0.0-1.0 SGOT/AST (test code = AST) Units/L 15-37 SGPT/ALT (test code = ALT) Units/L 12.0-78.0 ALKALINE PHOSPHATASE TOTAL ( test code = ALKP) Units/L 50.0-136.0 [id number] 14:32:00* Test Item Value Reference Range Interpretation Comme nts LIPASE (test code = LIP) Units/L 65.0-230.0 B-TYPE NATRIURETIC [id number] 14:32:00* Test Item Value Reference Range Interpretation Comme nts B-TYPE NATRIURETIC PEPTIDE ( test code = BNP) 22.0 PG/ML 5-100 N CARDIAC ENZYMES [id number] 14:32:00* Test Item Value Reference Range Interpretation Comme nts CREATINE KINASE (CK) (test code = CK) Units/L 21-215 TROPONIN-I (test code = TROPI) NG/ML 0.00-0.06 - XR CHEST 1 [id number] 14:14:00 [facility] : 1975 Sex: F FAX: Sivan Louis MD [place]: St: PRE Name: CIPRIANO COHEN [facility] : 1975 Age/S: 45/F [address] [facility] Unit #: [id number] [place]: [place]: [place] [address] Acct:[id number] Dis Date: Status: PRE ER PHONE #: [phone] Exam Date: 12/01/20201412 FAX #: [phone] Reason: SYNCOPE EXAMS: CPT CODE: [id number] XR CHEST 1 V 70155 EXAM: - XR CHEST 1 V Locationcode:C3 HISTORY: SYNCOPE COMPARISON: None available time of interpretation. FINDINGS: Single AP view of the chest is provided. Heart size and vascularity are within normal limits. The lungs are clear of focal consolidation. No effusion, pneumothorax, or acute osseous abnormality. IMPRESSION: 1. Noradiographic evidence of acute cardiopulmonary process. at 1414 Reported and signed by: Andrew Contreras M.D. CC: Sivan Santos MD Technologist: GEORGINA HENDERSON Trnscrd Date/Time/By: 12/01/2020 (1414) : By: [email or web address] PAGE 1 Signed Report FAX: Sivan Louis MD [place]: St: PRE Name: CIPRIANO COHEN [facility] : 1975 Age/S: 45/F [address] Unit #: [id number] Loc: [place], [place]: [place] [address] Acct: [id number] Dis Date: Status: PRE ER PHONE #: [phone] Exam Date: 0 12/01/2020 1413 FAX #: [phone] Reason: SYNCOPE EXAMS: CPT CODE: [id number] XR CHEST 1 V 70482 (Continued) Orig Print D/T: S: 12/01/2020 (1417) PAGE 2 Signed [id number] 14:12:00* Test Item Value Reference Range Interpretation Comme nts LIPASE (test code = LIP) Units/L 65.0-230.0 B-TYPE NATRIURETIC [id number] 14:12:00* Test Item Value Reference Range Interpretation Comme nts B-TYPE NATRIURETIC PEPTIDE ( test code = BNP) PG/ML 5-100 CARDIAC ENZYMES [id number] 14:12:00* Test Item Value Reference Range Interpretation Comme nts CREATINE KINASE (CK) (test code = CK) Units/L 21-215 TROPONIN-I (test code = TROPI) NG/ML 0.00-0.06 COMPREHENSIVE METABOLIC [id number] 14:12:00* Test Item Value Reference Range Interpretation Comme nts SODIUM (test code = NA) 143 mmol/l 134.0-147.0 N POTASSIUM (test code = K) 3.7 mmol/L 3.6-5.2 N CHLORIDE (test code = CL) 108 mmol/l 98.0-107.0 H CARBON DIOXIDE (test code = CO2) 25.9 mmol/l 21.0-33.0 N ANION GAP (test code = GAP) 12.8 0-20 N GLUCOSE (test code = GLU) mg/dl 70.0-110.0 BLOOD UREA NITROGEN (test co de = BUN) mg/dl 7.0-18.0 CREATININE (test code = CREAT) mg/dL 0.60-1.30 GFR NON BLACK (test code = GFRNONBLACK) mL/min 95-105 GFR BLACK (test code = GFRBLACK) mL/min 115-127 TOTAL PROTEIN (test code = PROT) gm/dL 6.4-8.2 ALBUMIN (test code = ALB) gm/dl 3.2-4.7 CALCIUM (test code = CA) mg/dl 8.0-10.5 BILIRUBIN TOTAL (test code = BILT) mg/dl 0.0-1.0 SGOT/AST (test code = AST) Units/L 15-37 SGPT/ALT (test code = ALT) Units/L 12.0-78.0 ALKALINE PHOSPHATASE TOTAL ( test code = ALKP) Units/L 50.0-136.0 CBC W/AUTO [id number] 14:05:00* Test Item Value Reference Range Interpretation Comme nts WHITE BLOOD CELL (test code = WBC) 9.8 K/mm3 4.5-11.0 N RED BLOOD CELL (test code = RBC) 5.06 M/mm3 3.80-5.20 N HEMOGLOBIN (test code = HGB) 12.1 gm/dL 12.0-16.0 N HEMATOCRIT (test code = HCT) 39.4 % 36.0-48.0 N MEAN CELL VOLUME (test code = MCV) 77.9 UM3 82.0-99.0 L MEAN CELL HGB (test code = MCH) 23.9 UUG 25.5-32.5 L MEAN CELL HGB CONCETRATION (test code = MCHC) 30.7 gm/dL 29.0-35.5 N RED CELL DISTRIBUTION WIDTH (test code = RDW) 14.4 % 11.5-15.0 N RED CELL DISTRIBUTION WIDTH SD (test code = RDW-SD) 39.8 fL 34.8-50.2 N PLATELET COUNT (test code = PLT) 314 K/mm3 150-400 N MEAN PLATELET VOLUME (test c ode = MPV) 10.8 fl 7.4-10.4 H NEUTROPHIL % (test code = NT%) 66.9 % 49.0-76.0 N IMMATURE GRANULOCYTE % (test code = IG%) 0.5 % 0.0-0.4 H LYMPHOCYTE % (test code = LY%) 25.2 % 23.0-38.0 N MONOCYTE % (test code = MO%) 6.4 % 1.0-10.0 N EOSINOPHIL % (test code = EO%) 0.8 % 1.0-5.0 L BASOPHIL % (test code = BA%) 0.2 % 0.0-1.0 N NUCLEATED RBC % (test code = NRBC%) 0.0 % 0.0-0.1 N NEUTROPHIL # (test code = NT#) 6.6 K/mm3 2.4-6.3 H IMMATURE GRANULOCYTE # (test code = IG#) 0.05 x10 3/uL 0.00-0.07 N LYMPHOCYTE # (test code = LY#) 2.5 K/mm3 1.2-4.0 N MONOCYTE # (test code = MO#) 0.6 K/mm3 0.0-0.6 N EOSINOPHIL # (test code = EO#) 0.1 K/MM3 0.0-0.7 N BASOPHIL # (test code = BA#) 0.0 K/mm3 0.0-0.2 N NUCLEATED RBC # (test code = NRBC#) 0.00 X10 3uL 0.00-0.01 N [id number] 00:00:00* Test Item Value Reference Range Interpretation Comme [facility] TSH, THIRD GENERATION (test code = 2821) 4.060 UIU/ML Duarte McadamsHEMOGLOBIN [id number] 00:00:00* Test Item Value Reference Range Interpretation Comme nts HEMOGLOBIN A1c (test code = 36010) 6.3 % Duarte McadamsCOMPREHENSIVE METABOLIC [id number] 00:00:00* Test Item Value Reference Range Interpretation Comme nts GLUCOSE (test code = 2217) 103 MG/DL BUN (test code = 2208) 11 MG/DL CREATININE (test code = 2214) 0.73 MG/DL eGFR AMER. (test cod e = 44907) 115 ML/MIN/1.73 eGFR NON- AMER. (test code = 63568) 99 ML/MIN/1.73 CALC BUN/CREAT (test code = 2235) 15 RATIO SODIUM (test code = 2231) 140 MEQ/L POTASSIUM (test code = 2228) 4.4 MEQ/L CHLORIDE (test code = 2215) 103 MEQ/L CARBON DIOXIDE (test code = 2206) 26 MEQ/L CALCIUM (test code = 2209) 9.4 MG/DL PROTEIN, TOTAL (test code = 2229) 7.1 G/DL ALBUMIN (test code = 2201) 4.5 G/DL CALC GLOBULIN (test code = 2240) 2.6 G/DL CALC A/G RATIO (test code = 2234) 1.7 RATIO BILIRUBIN, TOTAL (test code = 2207) 0.2 MG/DL ALKALINE PHOSPHATASE (test code = 2204) 88 U/L AST (test code = 2218) 22 U/L ALT (test code = 2219) 26 U/L Duarte [id number] 00:00:00* Test Item Value Reference Range Interpretation Comme nts TSH, THIRD GENERATION (test code = 2821) 4.060 UIU/ML Duarte McadamsHEMOGLOBIN [id number] 00:00:00* Test Item Value Reference Range Interpretation Comme nts HEMOGLOBIN A1c (test code = 28957) 6.3 % Duarte McadamsCOMPREHENSIVE METABOLIC [id number] 00:00:00* Test Item Value Reference Range Interpretation Comme nts GLUCOSE (test code = 2217) 103 MG/DL BUN (test code = 2208) 11 MG/DL CREATININE (test code = 2214) 0.73 MG/DL eGFR AMER. (test cod e = 41040) 115 ML/MIN/1.73 eGFR NON- AMER. (test code = 69012) 99 ML/MIN/1.73 CALC BUN/CREAT (test code = 2235) 15 RATIO SODIUM (test code = 2231) 140 MEQ/L POTASSIUM (test code = 2228) 4.4 MEQ/L CHLORIDE (test code = 2215) 103 MEQ/L CARBON DIOXIDE (test code = 2206) 26 MEQ/L CALCIUM (test code = 2209) 9.4 MG/DL PROTEIN, TOTAL (test code = 2229) 7.1 G/DL ALBUMIN (test code = 2201) 4.5 G/DL CALC GLOBULIN (test code = 2240) 2.6 G/DL CALC A/G RATIO (test code = 2234) 1.7 RATIO BILIRUBIN, TOTAL (test code = 2207) 0.2 MG/DL ALKALINE PHOSPHATASE (test code = 2204) 88 U/L AST (test code = 2218) 22 U/L ALT (test code = 2219) 26 U/L Duarte [id number] 00:00:00* Test Item Value Reference Range Interpretation Comme carola TSH, THIRD GENERATION (test code = 2821) 4.060 UIU/ML Duarte McadamsHEMOGLOBIN [id number] 00:00:00* Test Item Value Reference Range Interpretation Comme nts HEMOGLOBIN A1c (test code = 24998) 6.3 % Duarte Olsen AustinCOMPREHENSIVE METABOLIC [id number] 00:00:00* Test Item Value Reference Range Interpretation Comme nts GLUCOSE (test code = 2217) 103 MG/DL BUN (test code = 2208) 11 MG/DL CREATININE (test code = 2214) 0.73 MG/DL eGFR AMER. (test cod e = 99762) 115 ML/MIN/1.73 eGFR NON- AMER. (test code = 09458) 99 ML/MIN/1.73 CALC BUN/CREAT (test code = 2235) 15 RATIO SODIUM (test code = 2231) 140 MEQ/L POTASSIUM (test code = 2228) 4.4 MEQ/L CHLORIDE (test code = 2215) 103 MEQ/L CARBON DIOXIDE (test code = 2206) 26 MEQ/L CALCIUM (test code = 2209) 9.4 MG/DL PROTEIN, TOTAL (test code = 2229) 7.1 G/DL ALBUMIN (test code = 2201) 4.5 G/DL CALC GLOBULIN (test code = 2240) 2.6 G/DL CALC A/G RATIO (test code = 2234) 1.7 RATIO BILIRUBIN, TOTAL (test code = 2207) 0.2 MG/DL ALKALINE PHOSPHATASE (test code = 2204) 88 U/L AST (test code = 2218) 22 U/L ALT (test code = 2219) 26 U/L Duarte [id number] 00:00:00* Test Item Value Reference Range Interpretation Comme carola TSH, THIRD GENERATION (test code = 2821) 4.060 UIU/ML Duarte McadamsHEMOGLOBIN [id number] 00:00:00* Test Item Value Reference Range Interpretation Comme carola HEMOGLOBIN A1c (test code = 71060) 6.3 % Duarte F AustinCOMPREHENSIVE METABOLIC [id number] 00:00:00* Test Item Value Reference Range Interpretation Comme nts GLUCOSE (test code = 2217) 103 MG/DL BUN (test code = 2208) 11 MG/DL CREATININE (test code = 2214) 0.73 MG/DL eGFR AMER. (test cod e = 67863) 115 ML/MIN/1.73 eGFR NON- AMER. (test code = 38722) 99 ML/MIN/1.73 CALC BUN/CREAT (test code = 2235) 15 RATIO SODIUM (test code = 2231) 140 MEQ/L POTASSIUM (test code = 2228) 4.4 MEQ/L CHLORIDE (test code = 2215) 103 MEQ/L CARBON DIOXIDE (test code = 2206) 26 MEQ/L CALCIUM (test code = 2209) 9.4 MG/DL PROTEIN, TOTAL (test code = 2229) 7.1 G/DL ALBUMIN (test code = 2201) 4.5 G/DL CALC GLOBULIN (test code = 2240) 2.6 G/DL CALC A/G RATIO (test code = 2234) 1.7 RATIO BILIRUBIN, TOTAL (test code = 2207) 0.2 MG/DL ALKALINE PHOSPHATASE (test code = 2204) 88 U/L AST (test code = 2218) 22 U/L ALT (test code = 2219) 26 U/L Duarte [id number] 00:00:00* Test Item Value Reference Range Interpretation Comme nts TSH, THIRD GENERATION (test code = 2821) 4.060 UIU/ML Duarte McadamsHEMOGLOBIN [id number] 00:00:00* Test Item Value Reference Range Interpretation Comme nts HEMOGLOBIN A1c (test code = 39774) 6.3 % Duarte McadamsCOMPREHENSIVE METABOLIC [id number] 00:00:00* Test Item Value Reference Range Interpretation Comme nts GLUCOSE (test code = 2217) 103 MG/DL BUN (test code = 2208) 11 MG/DL CREATININE (test code = 2214) 0.73 MG/DL eGFR AMER. (test cod e = 03558) 115 ML/MIN/1.73 eGFR NON- AMER. (test code = 21488) 99 ML/MIN/1.73 CALC BUN/CREAT (test code = 2235) 15 RATIO SODIUM (test code = 2231) 140 MEQ/L POTASSIUM (test code = 2228) 4.4 MEQ/L CHLORIDE (test code = 2215) 103 MEQ/L CARBON DIOXIDE (test code = 2206) 26 MEQ/L CALCIUM (test code = 2209) 9.4 MG/DL PROTEIN, TOTAL (test code = 2229) 7.1 G/DL ALBUMIN (test code = 2201) 4.5 G/DL CALC GLOBULIN (test code = 2240) 2.6 G/DL CALC A/G RATIO (test code = 2234) 1.7 RATIO BILIRUBIN, TOTAL (test code = 2207) 0.2 MG/DL ALKALINE PHOSPHATASE (test code = 2204) 88 U/L AST (test code = 221) 22 U/L ALT (test code = 2219) 26 U/L Duarte [id number] 00:00:00* Test Item Value Reference Range Interpretation Comme nts TSH, THIRD GENERATION (test code = 2821) 4.060 UIU/ML Duarte McadamsHEMOGLOBIN [id number] 00:00:00* Test Item Value Reference Range Interpretation Comme nts HEMOGLOBIN A1c (test code = 00733) 6.3 % Duarte McadamsCOMPREHENSIVE METABOLIC [id number] 00:00:00* Test Item Value Reference Range Interpretation Comme nts GLUCOSE (test code = 2217) 103 MG/DL BUN (test code = 2208) 11 MG/DL CREATININE (test code = 2214) 0.73 MG/DL eGFR AMER. (test cod e = 85441) 115 ML/MIN/1.73 eGFR NON- AMER. (test code = 66907) 99 ML/MIN/1.73 CALC BUN/CREAT (test code = 2235) 15 RATIO SODIUM (test code = 2231) 140 MEQ/L POTASSIUM (test code = 2228) 4.4 MEQ/L CHLORIDE (test code = 2215) 103 MEQ/L CARBON DIOXIDE (test code = 2206) 26 MEQ/L CALCIUM (test code = 2209) 9.4 MG/DL PROTEIN, TOTAL (test code = 2229) 7.1 G/DL ALBUMIN (test code = 2201) 4.5 G/DL CALC GLOBULIN (test code = 2240) 2.6 G/DL CALC A/G RATIO (test code = 2234) 1.7 RATIO BILIRUBIN, TOTAL (test code = 2207) 0.2 MG/DL ALKALINE PHOSPHATASE (test code = 2204) 88 U/L AST (test code = 2218) 22 U/L ALT (test code = 2219) 26 U/L Duarte McadamsVITAMIN D, 25 [id number] 00:00:00* Test Item Value Reference Range Interpretation Comme nts VITAMIN D, 25 OH (test code = 4958) 18 NG/ML Duarte McadamsCOMPREHENSIVE METABOLIC [id number] 00:00:00* Test Item Value Reference Range Interpretation Comme nts GLUCOSE (test code = 2217) 127 MG/DL BUN (test code = 2208) 11 MG/DL CREATININE (test code = 2214) 0.71 MG/DL eGFR AMER. (test cod e = 38427) 119 ML/MIN/1.73 eGFR NON- AMER. (test code = 07646) 103 ML/MIN/1.73 CALC BUN/CREAT (test code = 2235) 15 RATIO SODIUM (test code = 2231) 140 MEQ/L POTASSIUM (test code = 2228) 4.0 MEQ/L CHLORIDE (test code = 2215) 105 MEQ/L CARBON DIOXIDE (test code = 2206) 25 MEQ/L CALCIUM (test code = 2209) 9.3 MG/DL PROTEIN, TOTAL (test code = 2229) 7.4 G/DL ALBUMIN (test code = 2201) 4.4 G/DL CALC GLOBULIN (test code = 2240) 3.0 G/DL CALC A/G RATIO (test code = 2234) 1.5 RATIO BILIRUBIN, TOTAL (test code = 2207) 0.2 MG/DL ALKALINE PHOSPHATASE (test code = 2204) 94 U/L AST (test code = 2218) 20 U/L ALT (test code = 2219) 28 U/L Duarte [id number] 00:00:00* Test Item Value Reference Range Interpretation Comme carola TSH, THIRD GENERATION (test code = 2821) 8.300 UIU/ML Duarte McadamsLIPID [id number] 00:00:00* Test Item Value Reference Range Interpretation Comme nts CHOLESTEROL (test code = 2210) 185 MG/DL TRIGLYCERIDES (test code = 2232) 146 MG/DL HDL CHOLESTEROL (test code = 2220) 50 MG/DL CALC LDL CHOL (test code = 2237) 109 MG/DL RISK RATIO LDL/HDL (test cod e = 2238) 2.18 RATIO Duarte McadamsCBC W/AUTO [id number] 00:00:00* Test Item Value Reference Range Interpretation Comme nts WBC (test code = 1001) 8.7 K/UL RBC (test code = 1002) 4.53 M/UL HEMOGLOBIN (test code = 1003) 11.8 G/DL HEMATOCRIT (test code = 1004) 35.1 % MCV (test code = 1005) 77.5 fL MCH (test code = 1006) 26.0 PG MCHC (test code = 1007) 33.6 G/DL RDW (test code = 1038) 14.5 % NEUTROPHILS (test code = 1008) 66.5 % LYMPHOCYTES (test code = 1010) 24.7 % MONOCYTES (test code = 1011) 6.8 % EOSINOPHILS (test code = 1012) 1.7 % BASOPHILS (test code = 1013) 0.3 % PLATELET COUNT (test code = 1015) 288 K/UL Duarte McadamsVITAMIN D, 25 [id number] 00:00:00* Test Item Value Reference Range Interpretation Comme [facility] VITAMIN D, 25 OH (test code = 4958) 18 NG/ML Duarte McadamsCOMPREHENSIVE METABOLIC [id number] 00:00:00* Test Item Value Reference Range Interpretation Comme nts GLUCOSE (test code = 2217) 127 MG/DL BUN (test code = 2208) 11 MG/DL CREATININE (test code = 2214) 0.71 MG/DL eGFR AMER. (test cod e = 73032) 119 ML/MIN/1.73 eGFR NON- AMER. (test code = 77460) 103 ML/MIN/1.73 CALC BUN/CREAT (test code = 2235) 15 RATIO SODIUM (test code = 2231) 140 MEQ/L POTASSIUM (test code = 2228) 4.0 MEQ/L CHLORIDE (test code = 2215) 105 MEQ/L CARBON DIOXIDE (test code = 2206) 25 MEQ/L CALCIUM (test code = 2209) 9.3 MG/DL PROTEIN, TOTAL (test code = 2229) 7.4 G/DL ALBUMIN (test code = 2201) 4.4 G/DL CALC GLOBULIN (test code = 2240) 3.0 G/DL CALC A/G RATIO (test code = 2234) 1.5 RATIO BILIRUBIN, TOTAL (test code = 2207) 0.2 MG/DL ALKALINE PHOSPHATASE (test code = 2204) 94 U/L AST (test code = 2218) 20 U/L ALT (test code = 2219) 28 U/L Duarte [id number] 00:00:00* Test Item Value Reference Range Interpretation Comme nts TSH, THIRD GENERATION (test code = 2821) 8.300 UIU/ML Duarte McadamsLIPID [id number] 00:00:00* Test Item Value Reference Range Interpretation Comme nts CHOLESTEROL (test code = 2210) 185 MG/DL TRIGLYCERIDES (test code = 2232) 146 MG/DL HDL CHOLESTEROL (test code = 2220) 50 MG/DL CALC LDL CHOL (test code = 2237) 109 MG/DL RISK RATIO LDL/HDL (test cod e = 2238) 2.18 RATIO Duarte McadamsCBC W/AUTO [id number] 00:00:00* Test Item Value Reference Range Interpretation Comme nts WBC (test code = 1001) 8.7 K/UL RBC (test code = 1002) 4.53 M/UL HEMOGLOBIN (test code = 1003) 11.8 G/DL HEMATOCRIT (test code = 1004) 35.1 % MCV (test code = 1005) 77.5 fL MCH (test code = 1006) 26.0 PG MCHC (test code = 1007) 33.6 G/DL RDW (test code = 1038) 14.5 % NEUTROPHILS (test code = 1008) 66.5 % LYMPHOCYTES (test code = 1010) 24.7 % MONOCYTES (test code = 1011) 6.8 % EOSINOPHILS (test code = 1012) 1.7 % BASOPHILS (test code = 1013) 0.3 % PLATELET COUNT (test code = 1015) 288 K/UL Duarte McadamsVITAMIN D, 25 [id number] 00:00:00* Test Item Value Reference Range Interpretation Comme nts VITAMIN D, 25 OH (test code = 4958) 18 NG/ML Duarte McadamsCOMPREHENSIVE METABOLIC [id number] 00:00:00* Test Item Value Reference Range Interpretation Comme nts GLUCOSE (test code = 2217) 127 MG/DL BUN (test code = 2208) 11 MG/DL CREATININE (test code = 2214) 0.71 MG/DL eGFR AMER. (test cod e = 35761) 119 ML/MIN/1.73 eGFR NON- AMER. (test code = 53566) 103 ML/MIN/1.73 CALC BUN/CREAT (test code = 2235) 15 RATIO SODIUM (test code = 2231) 140 MEQ/L POTASSIUM (test code = 2228) 4.0 MEQ/L CHLORIDE (test code = 2215) 105 MEQ/L CARBON DIOXIDE (test code = 2206) 25 MEQ/L CALCIUM (test code = 2209) 9.3 MG/DL PROTEIN, TOTAL (test code = 2229) 7.4 G/DL ALBUMIN (test code = 2201) 4.4 G/DL CALC GLOBULIN (test code = 2240) 3.0 G/DL CALC A/G RATIO (test code = 2234) 1.5 RATIO BILIRUBIN, TOTAL (test code = 2207) 0.2 MG/DL ALKALINE PHOSPHATASE (test code = 2204) 94 U/L AST (test code = 2218) 20 U/L ALT (test code = 2219) 28 U/L Duarte [id number] 00:00:00* Test Item Value Reference Range Interpretation Comme nts TSH, THIRD GENERATION (test code = 2821) 8.300 UIU/ML Duarte McadamsLIPID [id number] 00:00:00* Test Item Value Reference Range Interpretation Comme nts CHOLESTEROL (test code = 2210) 185 MG/DL TRIGLYCERIDES (test code = 2232) 146 MG/DL HDL CHOLESTEROL (test code = 2220) 50 MG/DL CALC LDL CHOL (test code = 2237) 109 MG/DL RISK RATIO LDL/HDL (test cod e = 2238) 2.18 RATIO Duarte McadamsCBC W/AUTO [id number] 00:00:00* Test Item Value Reference Range Interpretation Comme nts WBC (test code = 1001) 8.7 K/UL RBC (test code = 1002) 4.53 M/UL HEMOGLOBIN (test code = 1003) 11.8 G/DL HEMATOCRIT (test code = 1004) 35.1 % MCV (test code = 1005) 77.5 fL MCH (test code = 1006) 26.0 PG MCHC (test code = 1007) 33.6 G/DL RDW (test code = 1038) 14.5 % NEUTROPHILS (test code = 1008) 66.5 % LYMPHOCYTES (test code = 1010) 24.7 % MONOCYTES (test code = 1011) 6.8 % EOSINOPHILS (test code = 1012) 1.7 % BASOPHILS (test code = 1013) 0.3 % PLATELET COUNT (test code = 1015) 288 K/UL Duarte McadamsVITAMIN D, 25 [id number] 00:00:00* Test Item Value Reference Range Interpretation Comme nts VITAMIN D, 25 OH (test code = 4958) 18 NG/ML Duarte McadamsCOMPREHENSIVE METABOLIC [id number] 00:00:00* Test Item Value Reference Range Interpretation Comme nts GLUCOSE (test code = 2217) 127 MG/DL BUN (test code = 2208) 11 MG/DL CREATININE (test code = 2214) 0.71 MG/DL eGFR AMER. (test cod e = 26699) 119 ML/MIN/1.73 eGFR NON- AMER. (test code = 37894) 103 ML/MIN/1.73 CALC BUN/CREAT (test code = 2235) 15 RATIO SODIUM (test code = 2231) 140 MEQ/L POTASSIUM (test code = 2228) 4.0 MEQ/L CHLORIDE (test code = 2215) 105 MEQ/L CARBON DIOXIDE (test code = 2206) 25 MEQ/L CALCIUM (test code = 2209) 9.3 MG/DL PROTEIN, TOTAL (test code = 2229) 7.4 G/DL ALBUMIN (test code = 2201) 4.4 G/DL CALC GLOBULIN (test code = 2240) 3.0 G/DL CALC A/G RATIO (test code = 2234) 1.5 RATIO BILIRUBIN, TOTAL (test code = 2207) 0.2 MG/DL ALKALINE PHOSPHATASE (test code = 2204) 94 U/L AST (test code = 2218) 20 U/L ALT (test code = 2219) 28 U/L Duarte [id number] 00:00:00* Test Item Value Reference Range Interpretation Comme carola TSH, THIRD GENERATION (test code = 2821) 8.300 UIU/ML Duarte McadamsLIPID [id number] 00:00:00* Test Item Value Reference Range Interpretation Comme nts CHOLESTEROL (test code = 2210) 185 MG/DL TRIGLYCERIDES (test code = 2232) 146 MG/DL HDL CHOLESTEROL (test code = 2220) 50 MG/DL CALC LDL CHOL (test code = 2237) 109 MG/DL RISK RATIO LDL/HDL (test cod e = 2238) 2.18 RATIO Duarte McadamsCBC W/AUTO [id number] 00:00:00* Test Item Value Reference Range Interpretation Comme nts WBC (test code = 1001) 8.7 K/UL RBC (test code = 1002) 4.53 M/UL HEMOGLOBIN (test code = 1003) 11.8 G/DL HEMATOCRIT (test code = 1004) 35.1 % MCV (test code = 1005) 77.5 fL MCH (test code = 1006) 26.0 PG MCHC (test code = 1007) 33.6 G/DL RDW (test code = 1038) 14.5 % NEUTROPHILS (test code = 1008) 66.5 % LYMPHOCYTES (test code = 1010) 24.7 % MONOCYTES (test code = 1011) 6.8 % EOSINOPHILS (test code = 1012) 1.7 % BASOPHILS (test code = 1013) 0.3 % PLATELET COUNT (test code = 1015) 288 K/UL Duarte McadamsVITAMIN D, 25 [id number] 00:00:00* Test Item Value Reference Range Interpretation Comme carola VITAMIN D, 25 OH (test code = 4958) 18 NG/ML Duarte McadamsCOMPREHENSIVE METABOLIC [id number] 00:00:00* Test Item Value Reference Range Interpretation Comme carola GLUCOSE (test code = 2217) 127 MG/DL BUN (test code = 2208) 11 MG/DL CREATININE (test code = 2214) 0.71 MG/DL eGFR AMER. (test cod e = 52298) 119 ML/MIN/1.73 eGFR NON- AMER. (test code = 57347) 103 ML/MIN/1.73 CALC BUN/CREAT (test code = 2235) 15 RATIO SODIUM (test code = 2231) 140 MEQ/L POTASSIUM (test code = 2228) 4.0 MEQ/L CHLORIDE (test code = 2215) 105 MEQ/L CARBON DIOXIDE (test code = 2206) 25 MEQ/L CALCIUM (test code = 2209) 9.3 MG/DL PROTEIN, TOTAL (test code = 2229) 7.4 G/DL ALBUMIN (test code = 2201) 4.4 G/DL CALC GLOBULIN (test code = 2240) 3.0 G/DL CALC A/G RATIO (test code = 2234) 1.5 RATIO BILIRUBIN, TOTAL (test code = 2207) 0.2 MG/DL ALKALINE PHOSPHATASE (test code = 2204) 94 U/L AST (test code = 2218) 20 U/L ALT (test code = 2219) 28 U/L Duarte [id number] 00:00:00* Test Item Value Reference Range Interpretation Comme nts TSH, THIRD GENERATION (test code = 2821) 8.300 UIU/ML Duarte McadamsLIPID [id number] 00:00:00* Test Item Value Reference Range Interpretation Comme nts CHOLESTEROL (test code = 2210) 185 MG/DL TRIGLYCERIDES (test code = 2232) 146 MG/DL HDL CHOLESTEROL (test code = 2220) 50 MG/DL CALC LDL CHOL (test code = 2237) 109 MG/DL RISK RATIO LDL/HDL (test cod e = 2238) 2.18 RATIO Duarte McadamsCBC W/AUTO [id number] 00:00:00* Test Item Value Reference Range Interpretation Comme nts WBC (test code = 1001) 8.7 K/UL RBC (test code = 1002) 4.53 M/UL HEMOGLOBIN (test code = 1003) 11.8 G/DL HEMATOCRIT (test code = 1004) 35.1 % MCV (test code = 1005) 77.5 fL MCH (test code = 1006) 26.0 PG MCHC (test code = 1007) 33.6 G/DL RDW (test code = 1038) 14.5 % NEUTROPHILS (test code = 1008) 66.5 % LYMPHOCYTES (test code = 1010) 24.7 % MONOCYTES (test code = 1011) 6.8 % EOSINOPHILS (test code = 1012) 1.7 % BASOPHILS (test code = 1013) 0.3 % PLATELET COUNT (test code = 1015) 288 K/UL Duarte McadamsVITAMIN D, 25 [id number] 00:00:00* Test Item Value Reference Range Interpretation Comme nts VITAMIN D, 25 OH (test code = 4958) 18 NG/ML Duarte McadamsCOMPREHENSIVE METABOLIC [id number] 00:00:00* Test Item Value Reference Range Interpretation Comme nts GLUCOSE (test code = 2217) 127 MG/DL BUN (test code = 2208) 11 MG/DL CREATININE (test code = 2214) 0.71 MG/DL eGFR AMER. (test cod e = 38744) 119 ML/MIN/1.73 eGFR NON- AMER. (test code = 98072) 103 ML/MIN/1.73 CALC BUN/CREAT (test code = 2235) 15 RATIO SODIUM (test code = 2231) 140 MEQ/L POTASSIUM (test code = 2228) 4.0 MEQ/L CHLORIDE (test code = 2215) 105 MEQ/L CARBON DIOXIDE (test code = 2206) 25 MEQ/L CALCIUM (test code = 2209) 9.3 MG/DL PROTEIN, TOTAL (test code = 2229) 7.4 G/DL ALBUMIN (test code = 2201) 4.4 G/DL CALC GLOBULIN (test code = 2240) 3.0 G/DL CALC A/G RATIO (test code = 2234) 1.5 RATIO BILIRUBIN, TOTAL (test code = 2207) 0.2 MG/DL ALKALINE PHOSPHATASE (test code = 2204) 94 U/L AST (test code = 2218) 20 U/L ALT (test code = 2219) 28 U/L Duarte [id number] 00:00:00* Test Item Value Reference Range Interpretation Comme carola TSH, THIRD GENERATION (test code = 2821) 8.300 UIU/ML Duarte McadamsLIPID [id number] 00:00:00* Test Item Value Reference Range Interpretation Comme nts CHOLESTEROL (test code = 2210) 185 MG/DL TRIGLYCERIDES (test code = 2232) 146 MG/DL HDL CHOLESTEROL (test code = 2220) 50 MG/DL CALC LDL CHOL (test code = 2237) 109 MG/DL RISK RATIO LDL/HDL (test cod e = 2238) 2.18 RATIO Duarte McadamsC W/AUTO [id number] 00:00:00* Test Item Value Reference Range Interpretation Comme nts WBC (test code = 1001) 8.7 K/UL RBC (test code = 1002) 4.53 M/UL HEMOGLOBIN (test code = 1003) 11.8 G/DL HEMATOCRIT (test code = 1004) 35.1 % MCV (test code = 1005) 77.5 fL MCH (test code = 1006) 26.0 PG MCHC (test code = 1007) 33.6 G/DL RDW (test code = 1038) 14.5 % NEUTROPHILS (test code = 1008) 66.5 % LYMPHOCYTES (test code = 1010) 24.7 % MONOCYTES (test code = 1011) 6.8 % EOSINOPHILS (test code = 1012) 1.7 % BASOPHILS (test code = 1013) 0.3 % PLATELET COUNT (test code = 1015) 288 K/UL Duarte McadamsISOFORMS 25-HYDROXY VIT [id number] 00:00:00* Test Item Value Reference Range Interpretation Comme nts 25-HYDROXYVITAMIN D2 (test c ode = 56607) <1.0 ng/mL 25-HYDROXYVITAMIN D3 (test c ode = 01342) 12.8 ng/mL 25-HYDROXYVITAMIN D TOTAL (t est code = 39909) 13.8 ng/mL Duarte McadamsISOFORMS 25-HYDROXY VIT [id number] 00:00:00* Test Item Value Reference Range Interpretation Comme nts 25-HYDROXYVITAMIN D2 (test c ode = 06532) <1.0 ng/mL 25-HYDROXYVITAMIN D3 (test c ode = 84325) 12.8 ng/mL 25-HYDROXYVITAMIN D TOTAL (t est code = 66224) 13.8 ng/mL Duarte Olsen AustinISOFORMS 25-HYDROXY VIT [id number] 00:00:00* Test Item Value Reference Range Interpretation Comme nts 25-HYDROXYVITAMIN D2 (test c ode = 13375) <1.0 ng/mL 25-HYDROXYVITAMIN D3 (test c ode = 71082) 12.8 ng/mL 25-HYDROXYVITAMIN D TOTAL (t est code = 77266) 13.8 ng/mL Duarte McadamsISOFORMS 25-HYDROXY VIT [id number] 00:00:00* Test Item Value Reference Range Interpretation Comme nts 25-HYDROXYVITAMIN D2 (test c ode = 73358) <1.0 ng/mL 25-HYDROXYVITAMIN D3 (test c ode = 53914) 12.8 ng/mL 25-HYDROXYVITAMIN D TOTAL (t est code = 31153) 13.8 ng/mL Duarte McadamsISOFORMS 25-HYDROXY VIT [id number] 00:00:00* Test Item Value Reference Range Interpretation Comme nts 25-HYDROXYVITAMIN D2 (test c ode = 16485) <1.0 ng/mL 25-HYDROXYVITAMIN D3 (test c ode = 97389) 12.8 ng/mL 25-HYDROXYVITAMIN D TOTAL (t est code = 41214) 13.8 ng/mL Duarte McadamsISOFORMS 25-HYDROXY VIT [id number] 00:00:00* Test Item Value Reference Range Interpretation Comme nts 25-HYDROXYVITAMIN D2 (test c ode = 84545) <1.0 ng/mL 25-HYDROXYVITAMIN D3 (test c ode = 24444) 12.8 ng/mL 25-HYDROXYVITAMIN D TOTAL (t est code = 64170) 13.8 ng/mL Duarte McadamsLIPID [id number] 00:00:00* Test Item Value Reference Range Interpretation Comme nts CHOLESTEROL (test code = 2210) 162 MG/DL TRIGLYCERIDES (test code = 2232) 161 MG/DL HDL CHOLESTEROL (test code = 2220) 46 MG/DL CALC LDL CHOL (test code = 2237) 90 MG/DL RISK RATIO LDL/HDL (test cod e = 2238) 1.96 RATIO Duarte Olsen AustinVITAMIN B 12 AND FOLIC [id number] 00:00:00* Test Item Value Reference Range Interpretation Comme nts VITAMIN B-12 (test code = 2840) 546 PG/ML FOLIC ACID (test code = 2695) >20.0 UG/L Duarte Olsen AbbeCBC W/AUTO [id number] 00:00:00* Test Item Value Reference Range Interpretation Comme nts WBC (test code = 1001) 11.2 K/UL RBC (test code = 1002) 5.15 M/UL HEMOGLOBIN (test code = 1003) 12.2 G/DL HEMATOCRIT (test code = 1004) 37.8 % MCV (test code = 1005) 73.4 fL MCH (test code = 1006) 23.7 PG MCHC (test code = 1007) 32.3 G/DL RDW (test code = 1038) 15.6 % NEUTROPHILS (test code = 1008) 74.9 % LYMPHOCYTES (test code = 1010) 18.2 % MONOCYTES (test code = 1011) 5.7 % EOSINOPHILS (test code = 1012) 0.9 % BASOPHILS (test code = 1013) 0.3 % PLATELET COUNT (test code = 1015) 335 K/UL Duarte Olsen AbbeCOMPREHENSIVE METABOLIC [id number] 00:00:00* Test Item Value Reference Range Interpretation Comme nts GLUCOSE (test code = 2217) 125 MG/DL BUN (test code = 2208) 10 MG/DL CREATININE (test code = 2214) 0.57 MG/DL eGFR AMER. (test cod e = 38289) 131 ML/MIN/1.73 eGFR NON- AMER. (test code = 40232) 113 ML/MIN/1.73 CALC BUN/CREAT (test code = 2235) 18 RATIO SODIUM (test code = 2231) 140 MEQ/L POTASSIUM (test code = 2228) 3.9 MEQ/L CHLORIDE (test code = 2215) 100 MEQ/L CARBON DIOXIDE (test code = 2206) 24 MEQ/L CALCIUM (test code = 2209) 9.4 MG/DL PROTEIN, TOTAL (test code = 2229) 7.3 G/DL ALBUMIN (test code = 2201) 4.3 G/DL CALC GLOBULIN (test code = 2240) 3.0 G/DL CALC A/G RATIO (test code = 2234) 1.4 RATIO BILIRUBIN, TOTAL (test code = 2207) 0.3 MG/DL ALKALINE PHOSPHATASE (test code = 2204) 100 U/L AST (test code = 2218) 14 U/L ALT (test code = 2219) 20 U/L Duarte McadamsLIPID [id number] 00:00:00* Test Item Value Reference Range Interpretation Comme nts CHOLESTEROL (test code = 2210) 162 MG/DL TRIGLYCERIDES (test code = 2232) 161 MG/DL HDL CHOLESTEROL (test code = 2220) 46 MG/DL CALC LDL CHOL (test code = 2237) 90 MG/DL RISK RATIO LDL/HDL (test cod e = 2238) 1.96 RATIO Duarte McadamsVITAMIN B 12 AND FOLIC [id number] 00:00:00* Test Item Value Reference Range Interpretation Comme nts VITAMIN B-12 (test code = 2840) 546 PG/ML FOLIC ACID (test code = 2695) >20.0 UG/L Duarte McadamsCBC W/AUTO [id number] 00:00:00* Test Item Value Reference Range Interpretation Comme nts WBC (test code = 1001) 11.2 K/UL RBC (test code = 1002) 5.15 M/UL HEMOGLOBIN (test code = 1003) 12.2 G/DL HEMATOCRIT (test code = 1004) 37.8 % MCV (test code = 1005) 73.4 fL MCH (test code = 1006) 23.7 PG MCHC (test code = 1007) 32.3 G/DL RDW (test code = 1038) 15.6 % NEUTROPHILS (test code = 1008) 74.9 % LYMPHOCYTES (test code = 1010) 18.2 % MONOCYTES (test code = 1011) 5.7 % EOSINOPHILS (test code = 1012) 0.9 % BASOPHILS (test code = 1013) 0.3 % PLATELET COUNT (test code = 1015) 335 K/UL Duarte McadamsCOMPREHENSIVE METABOLIC [id number] 00:00:00* Test Item Value Reference Range Interpretation Comme nts GLUCOSE (test code = 2217) 125 MG/DL BUN (test code = 2208) 10 MG/DL CREATININE (test code = 2214) 0.57 MG/DL eGFR AMER. (test cod e = 58487) 131 ML/MIN/1.73 eGFR NON- AMER. (test code = 94958) 113 ML/MIN/1.73 CALC BUN/CREAT (test code = 2235) 18 RATIO SODIUM (test code = 2231) 140 MEQ/L POTASSIUM (test code = 2228) 3.9 MEQ/L CHLORIDE (test code = 2215) 100 MEQ/L CARBON DIOXIDE (test code = 2206) 24 MEQ/L CALCIUM (test code = 2209) 9.4 MG/DL PROTEIN, TOTAL (test code = 2229) 7.3 G/DL ALBUMIN (test code = 2201) 4.3 G/DL CALC GLOBULIN (test code = 2240) 3.0 G/DL CALC A/G RATIO (test code = 2234) 1.4 RATIO BILIRUBIN, TOTAL (test code = 2207) 0.3 MG/DL ALKALINE PHOSPHATASE (test code = 2204) 100 U/L AST (test code = 2218) 14 U/L ALT (test code = 2219) 20 U/L Duarte McadamsLIPID [id number] 00:00:00* Test Item Value Reference Range Interpretation Comme nts CHOLESTEROL (test code = 2210) 162 MG/DL TRIGLYCERIDES (test code = 2232) 161 MG/DL HDL CHOLESTEROL (test code = 2220) 46 MG/DL CALC LDL CHOL (test code = 2237) 90 MG/DL RISK RATIO LDL/HDL (test cod e = 2238) 1.96 RATIO Duarte McadamsVITAMIN B 12 AND FOLIC [id number] 00:00:00* Test Item Value Reference Range Interpretation Comme nts VITAMIN B-12 (test code = 2840) 546 PG/ML FOLIC ACID (test code = 2695) >20.0 UG/L Duarte McadamsCBC W/AUTO [id number] 00:00:00* Test Item Value Reference Range Interpretation Comme nts WBC (test code = 1001) 11.2 K/UL RBC (test code = 1002) 5.15 M/UL HEMOGLOBIN (test code = 1003) 12.2 G/DL HEMATOCRIT (test code = 1004) 37.8 % MCV (test code = 1005) 73.4 fL MCH (test code = 1006) 23.7 PG MCHC (test code = 1007) 32.3 G/DL RDW (test code = 1038) 15.6 % NEUTROPHILS (test code = 1008) 74.9 % LYMPHOCYTES (test code = 1010) 18.2 % MONOCYTES (test code = 1011) 5.7 % EOSINOPHILS (test code = 1012) 0.9 % BASOPHILS (test code = 1013) 0.3 % PLATELET COUNT (test code = 1015) 335 K/UL Duarte McadamsCOMPREHENSIVE METABOLIC [id number] 00:00:00* Test Item Value Reference Range Interpretation Comme nts GLUCOSE (test code = 2217) 125 MG/DL BUN (test code = 2208) 10 MG/DL CREATININE (test code = 2214) 0.57 MG/DL eGFR AMER. (test cod e = 27726) 131 ML/MIN/1.73 eGFR NON- AMER. (test code = 98669) 113 ML/MIN/1.73 CALC BUN/CREAT (test code = 2235) 18 RATIO SODIUM (test code = 2231) 140 MEQ/L POTASSIUM (test code = 2228) 3.9 MEQ/L CHLORIDE (test code = 2215) 100 MEQ/L CARBON DIOXIDE (test code = 2206) 24 MEQ/L CALCIUM (test code = 2209) 9.4 MG/DL PROTEIN, TOTAL (test code = 2229) 7.3 G/DL ALBUMIN (test code = 2201) 4.3 G/DL CALC GLOBULIN (test code = 2240) 3.0 G/DL CALC A/G RATIO (test code = 2234) 1.4 RATIO BILIRUBIN, TOTAL (test code = 2207) 0.3 MG/DL ALKALINE PHOSPHATASE (test code = 2204) 100 U/L AST (test code = 2218) 14 U/L ALT (test code = 2219) 20 U/L Duarte McadamsLIPID [id number] 00:00:00* Test Item Value Reference Range Interpretation Comme nts CHOLESTEROL (test code = 2210) 162 MG/DL TRIGLYCERIDES (test code = 2232) 161 MG/DL HDL CHOLESTEROL (test code = 2220) 46 MG/DL CALC LDL CHOL (test code = 2237) 90 MG/DL RISK RATIO LDL/HDL (test cod e = 2238) 1.96 RATIO Duarte McadamsVITAMIN B 12 AND FOLIC [id number] 00:00:00* Test Item Value Reference Range Interpretation Comme nts VITAMIN B-12 (test code = 2840) 546 PG/ML FOLIC ACID (test code = 2695) >20.0 UG/L Duarte Olsen AbbeCBC W/AUTO [id number] 00:00:00* Test Item Value Reference Range Interpretation Comme nts WBC (test code = 1001) 11.2 K/UL RBC (test code = 1002) 5.15 M/UL HEMOGLOBIN (test code = 1003) 12.2 G/DL HEMATOCRIT (test code = 1004) 37.8 % MCV (test code = 1005) 73.4 fL MCH (test code = 1006) 23.7 PG MCHC (test code = 1007) 32.3 G/DL RDW (test code = 1038) 15.6 % NEUTROPHILS (test code = 1008) 74.9 % LYMPHOCYTES (test code = 1010) 18.2 % MONOCYTES (test code = 1011) 5.7 % EOSINOPHILS (test code = 1012) 0.9 % BASOPHILS (test code = 1013) 0.3 % PLATELET COUNT (test code = 1015) 335 K/UL Duarte McadamsCOMPREHENSIVE METABOLIC [id number] 00:00:00* Test Item Value Reference Range Interpretation Comme nts GLUCOSE (test code = 2217) 125 MG/DL BUN (test code = 2208) 10 MG/DL CREATININE (test code = 2214) 0.57 MG/DL eGFR AMER. (test cod e = 34563) 131 ML/MIN/1.73 eGFR NON- AMER. (test code = 04107) 113 ML/MIN/1.73 CALC BUN/CREAT (test code = 2235) 18 RATIO SODIUM (test code = 2231) 140 MEQ/L POTASSIUM (test code = 2228) 3.9 MEQ/L CHLORIDE (test code = 2215) 100 MEQ/L CARBON DIOXIDE (test code = 2206) 24 MEQ/L CALCIUM (test code = 2209) 9.4 MG/DL PROTEIN, TOTAL (test code = 2229) 7.3 G/DL ALBUMIN (test code = 2201) 4.3 G/DL CALC GLOBULIN (test code = 2240) 3.0 G/DL CALC A/G RATIO (test code = 2234) 1.4 RATIO BILIRUBIN, TOTAL (test code = 2207) 0.3 MG/DL ALKALINE PHOSPHATASE (test code = 2204) 100 U/L AST (test code = 2218) 14 U/L ALT (test code = 2219) 20 U/L Duarte McadamsLIPID [id number] 00:00:00* Test Item Value Reference Range Interpretation Comme nts CHOLESTEROL (test code = 2210) 162 MG/DL TRIGLYCERIDES (test code = 2232) 161 MG/DL HDL CHOLESTEROL (test code = 2220) 46 MG/DL CALC LDL CHOL (test code = 2237) 90 MG/DL RISK RATIO LDL/HDL (test cod e = 2238) 1.96 RATIO Duarte McadamsVITAMIN B 12 AND FOLIC [id number] 00:00:00* Test Item Value Reference Range Interpretation Comme nts VITAMIN B-12 (test code = 2840) 546 PG/ML FOLIC ACID (test code = 2695) >20.0 UG/L Duarte McadamsCBC W/AUTO [id number] 00:00:00* Test Item Value Reference Range Interpretation Comme nts WBC (test code = 1001) 11.2 K/UL RBC (test code = 1002) 5.15 M/UL HEMOGLOBIN (test code = 1003) 12.2 G/DL HEMATOCRIT (test code = 1004) 37.8 % MCV (test code = 1005) 73.4 fL MCH (test code = 1006) 23.7 PG MCHC (test code = 1007) 32.3 G/DL RDW (test code = 1038) 15.6 % NEUTROPHILS (test code = 1008) 74.9 % LYMPHOCYTES (test code = 1010) 18.2 % MONOCYTES (test code = 1011) 5.7 % EOSINOPHILS (test code = 1012) 0.9 % BASOPHILS (test code = 1013) 0.3 % PLATELET COUNT (test code = 1015) 335 K/UL Duarte Olsen AbbeCOMPREHENSIVE METABOLIC [id number] 00:00:00* Test Item Value Reference Range Interpretation Comme nts GLUCOSE (test code = 2217) 125 MG/DL BUN (test code = 2208) 10 MG/DL CREATININE (test code = 2214) 0.57 MG/DL eGFR AMER. (test cod e = 00391) 131 ML/MIN/1.73 eGFR NON- AMER. (test code = 85250) 113 ML/MIN/1.73 CALC BUN/CREAT (test code = 2235) 18 RATIO SODIUM (test code = 2231) 140 MEQ/L POTASSIUM (test code = 2228) 3.9 MEQ/L CHLORIDE (test code = 2215) 100 MEQ/L CARBON DIOXIDE (test code = 2206) 24 MEQ/L CALCIUM (test code = 2209) 9.4 MG/DL PROTEIN, TOTAL (test code = 2229) 7.3 G/DL ALBUMIN (test code = 2201) 4.3 G/DL CALC GLOBULIN (test code = 2240) 3.0 G/DL CALC A/G RATIO (test code = 2234) 1.4 RATIO BILIRUBIN, TOTAL (test code = 2207) 0.3 MG/DL ALKALINE PHOSPHATASE (test code = 2204) 100 U/L AST (test code = 2218) 14 U/L ALT (test code = 2219) 20 U/L Duarte McadamsLIPID [id number] 00:00:00* Test Item Value Reference Range Interpretation Comme nts CHOLESTEROL (test code = 2210) 162 MG/DL TRIGLYCERIDES (test code = 2232) 161 MG/DL HDL CHOLESTEROL (test code = 2220) 46 MG/DL CALC LDL CHOL (test code = 2237) 90 MG/DL RISK RATIO LDL/HDL (test cod e = 2238) 1.96 RATIO Duarte McadamsVITAMIN B 12 AND FOLIC [id number] 00:00:00* Test Item Value Reference Range Interpretation Comme nts VITAMIN B-12 (test code = 2840) 546 PG/ML FOLIC ACID (test code = 2695) >20.0 UG/L Duarte McadamsCBC W/AUTO [id number] 00:00:00* Test Item Value Reference Range Interpretation Comme nts WBC (test code = 1001) 11.2 K/UL RBC (test code = 1002) 5.15 M/UL HEMOGLOBIN (test code = 1003) 12.2 G/DL HEMATOCRIT (test code = 1004) 37.8 % MCV (test code = 1005) 73.4 fL MCH (test code = 1006) 23.7 PG MCHC (test code = 1007) 32.3 G/DL RDW (test code = 1038) 15.6 % NEUTROPHILS (test code = 1008) 74.9 % LYMPHOCYTES (test code = 1010) 18.2 % MONOCYTES (test code = 1011) 5.7 % EOSINOPHILS (test code = 1012) 0.9 % BASOPHILS (test code = 1013) 0.3 % PLATELET COUNT (test code = 1015) 335 K/UL Duarte McadamsCOMPREHENSIVE METABOLIC [id number] 00:00:00* Test Item Value Reference Range Interpretation Comme nts GLUCOSE (test code = 2217) 125 MG/DL BUN (test code = 2208) 10 MG/DL CREATININE (test code = 2214) 0.57 MG/DL eGFR AMER. (test cod e = 27865) 131 ML/MIN/1.73 eGFR NON- AMER. (test code = 21149) 113 ML/MIN/1.73 CALC BUN/CREAT (test code = 2235) 18 RATIO SODIUM (test code = 2231) 140 MEQ/L POTASSIUM (test code = 2228) 3.9 MEQ/L CHLORIDE (test code = 2215) 100 MEQ/L CARBON DIOXIDE (test code = 2206) 24 MEQ/L CALCIUM (test code = 2209) 9.4 MG/DL PROTEIN, TOTAL (test code = 2229) 7.3 G/DL ALBUMIN (test code = 2201) 4.3 G/DL CALC GLOBULIN (test code = 2240) 3.0 G/DL CALC A/G RATIO (test code = 2234) 1.4 RATIO BILIRUBIN, TOTAL (test code = 2207) 0.3 MG/DL ALKALINE PHOSPHATASE (test code = 2204) 100 U/L AST (test code = 2218) 14 U/L ALT (test code = 2219) 20 U/L Duarte Olsen Abbe Notes Date/Time Note Provider [facility]:00 [facility]-20 [facility]:00:00 Duarte Amanda [facility]
[2024-03-21] MEDS ORDERED: AMOX/K CLAV 875 MG TAB ONE (12:20)
[2024-03-21] MEDS ORDERED: KETOROLAC 30 MG/ML INJ ONE (12:20)
--- NOTE | 2024-03-21 12:34 | ER ---
Nurse's Notes [facility] Name: Radha Reyes Age: 49 yrs Sex: Female : 1975 Arrival Date: 03/21/2024 Time: 11:37 Bed 12 Private MD: Diagnosis: Acute serous otitis media, right ear;Otitis media in diseases classified elsewhere, right ear Presentation: 03/21 11:52 Chief complaint: Patient states: Right ear pain onset 2 days ago that got worse last cm10 night. Coronavirus screen: Client denies travel out of the [place] in the last 14 days. Ebola Screen: Patient denies travel to an Ebola-affected area in the 21 days before illness onset. No symptoms or risks identified at this time. Initial Sepsis Screen: Does the patient meet any 2 criteria? HR > 90 bpm. Does the patient have a suspected source of infection? No. Patient's initial sepsis screen is negative. Risk Assessment: Do you want to hurt yourself or someone else? Patient reports no desire to harm self or others. Onset of symptoms was March 19, 2024. 11:52 Method Of Arrival: Ambulatory cm10 11:52 Acuity: CA 4 cm10 Triage Assessment: 11:54 General: Appears in no apparent distress. uncomfortable, Behavior is crying. Pain: cm10 Complains of pain in right ear Pain currently is 10 out of 10 on a pain scale. Quality of pain is described as sharp, Pain began 2-3 days ago. EENT: Ear canal clear on right ear Reports pain in right ear. Neuro: No deficits noted. Level of Consciousness is awake, alert, obeys commands, Oriented to person, place, time, situation, Appropriate for age. Respiratory: No deficits noted. Airway is patent Respiratory effort is even, unlabored, Respiratory pattern is regular, symmetrical. 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 - Infectious Disease History:: Denies. - Social history:: Smoking status: Patient denies any tobacco usage or history of. - History obtained from: mother. Screenin:55 [facility] ED Fall Risk Assessment (Adult) History of falling in the last 3 months, cm10 including since admission No falls in past 3 months (0 pts) Confusion or Disorientation No (0 pts) Intoxicated or Sedated No (0 pts) Impaired Gait No (0 pts) Mobility Assist Device Used No (0 pt) Altered Elimination No (0 pt) Score/Fall Risk Level 0 - 2 = Low Risk Oriented to surroundings, Maintained a safe environment, Hourly rounding (assess needs \T\ fall precautionary measures) done. Abuse screen: Denies threats or abuse. Denies injuries from another. Nutritional screening: No deficits noted. Tuberculosis screening: No symptoms or risk factors identified. Assessment: 12:26 General: Appears distressed, uncomfortable, Behavior is cooperative, appropriate for ll1 age, crying. Pain: Complains of pain in right ear Pain currently is 10 out of 10 on a pain scale. Quality of pain is described as aching, throbbing. Neuro: No deficits noted. EENT: Reports pain in right ear. 13:00 Reassessment: No changes from previously documented assessment. Patient and/or family ll1 updated on plan of care and expected duration. Pain level reassessed. Patient is alert, oriented x 3, equal unlabored respirations, skin warm/dry/pink. Patient states feeling better. Vital Signs: 11:52 BP 175 / 68; Pulse 103; Resp 19; Temp 97.2(TE); Pulse Ox 99% on R/A; Weight 99.79 kg; cm10 Height 5 ft. 2 in. ; Pain 10/10; 12:45 BP 161 / 82; Pulse 87; Resp 18; Pulse Ox 99% ; Pain 10/10; ll1 12:59 Resp 17; Pain 7/10; ll1 11:52 Body Mass Index 40.24 (99.79 kg, 157.48 cm) cm10 11:52 Pain Scale: Adult cm10 12:45 Pain Scale: Adult ll1 12:59 Pain Scale: Adult ll1 ED Course: 11:40 Patient arrived in ED. ra3 11:53 Triage completed. cm10 11:55 Arm band placed on Patient placed in an exam room, on a stretcher. cm10 11:55 Patient has correct armband on for positive identification. Bed in low position. Call cm10 light in reach. Provided Education on: ER process and procedures.. Cardiac monitoring not applicable on this patient. 12:04 Alvino Nayak is Attending Physician. ci 12:35 No provider procedures requiring assistance completed. Patient did not have IV access 1 during this emergency room visit. Administered Medications: 12:25 Drug: Ketorolac IM 30 mg IM once {Note: pain 10/10 rass 0.} Route: IM; Site: right ll1 gluteus; 12:45 Follow up: Response: No adverse reaction; Pain is unchanged, physician notified; RASS: ll1 Alert and Calm (0) 13:00 Follow up: Response: No adverse reaction; Pain is decreased; RASS: Alert and Calm (0) [facility] 12:25 Drug: Amoxicillin-Clavulanate PO 875 mg PO once Route: PO; 1 12:36 Follow up: Response: No adverse reaction [facility] Medication: 11:55 VIS not applicable for this client. cm10 Outcome: 12:34 Discharge ordered by MD. ci 13:00 Discharged to home ambulatory, [facility] 13:00 Condition: stable 13:00 Discharge instructions given to patient, Instructed on discharge instructions, follow up and referral plans. medication usage, Demonstrated understanding of instructions, follow-up care, medications, Prescriptions given X 1, 13:00 Patient left the ED. [facility] Signatures: Yuri Restrepo RN RN 1 Joanna Lezama RN RN 10 Alvino Nayak Ruby ra3
--- NOTE | 2024-03-21 12:34 | EDPHYS ---
Physician Documentation [facility] Name: Radha Reyes Age: 49 yrs Sex: Female : 1975 Arrival Date: 03/21/2024 Time: 11:37 Bed 12 Private MD: ED Physician Alvino Nayak HPI: 03/21 12:24 This 49 yrs old Female presents to ER via Ambulatory with complaints of Ear ci Pain - right. 12:24 This 49 yrs old Female presents to ER via Ambulatory with complaints of Ear ci Pain - right. 12:24 Patient is a 49-year-old female with PMH hypertension, depression, thyroid disorder who ci presents to the ED with chief complaint of right ear pain that began 2 days ago. Patient has a history of recurrent ear infections, gets ear infections every year. She has been applying Ciprodex eardrops with no improvement. Denies any trauma, fever, headache, neck pain.. 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 - Infectious Disease History:: Denies. - Social history:: Smoking status: Patient denies any tobacco usage or history of. - History obtained from: mother. ROS: 12:24 Constitutional: Negative for fever, chills, and weight loss, ENT: Negative for injury, ci pain, and discharge. Positive right earache Neck: Negative for injury, pain, and swelling, Cardiovascular: Negative for chest pain, palpitations, and edema, Respiratory: Negative for shortness of breath, cough, wheezing, and pleuritic chest pain, Abdomen/GI: Negative for abdominal pain, nausea, vomiting, diarrhea, and constipation, Neuro: Negative for headache, weakness, numbness, tingling, and seizure, Exam: 12:24 Constitutional: This is a well developed, well nourished patient who is awake, alert, ci and in no acute distress. Head/Face: Normocephalic, atraumatic. Eyes: Pupils equal round and reactive to light, extra-ocular motions intact. Lids and lashes normal. Conjunctiva and sclera are non-icteric and not injected. Cornea within normal limits. Periorbital areas with no swelling, redness, or edema. ENT: Nares patent. No nasal discharge, no septal abnormalities noted. Oropharynx with no redness, swelling, or masses, exudates, or evidence of obstruction, uvula midline. Mucous membranes moist. Right TM dull, retracted. Left TM intact. No mastoid tenderness to palpation Neck: Trachea midline, no thyromegaly or masses palpated, and no cervical lymphadenopathy. Supple, full range of motion without nuchal rigidity, or vertebral point tenderness. No Meningismus. Chest/axilla: Normal chest wall appearance and motion. Nontender with no deformity. No lesions are appreciated. Cardiovascular: Regular rate and rhythm with a normal S1 and S2. No gallops, murmurs, or rubs. Normal PMI, no JVD. No pulse deficits. Respiratory: Lungs have equal breath sounds bilaterally, clear to auscultation and percussion. No rales, rhonchi or wheezes noted. No increased work of breathing, no retractions or nasal flaring. Abdomen/GI: Soft, non-tender, with normal bowel sounds. No distension or tympany. No guarding or rebound. No evidence of tenderness throughout. Back: No spinal tenderness. No costovertebral tenderness. Full range of motion. Skin: Warm, dry with normal turgor. Normal color with no rashes, no lesions, and no evidence of cellulitis. MS/ Extremity: Pulses equal, no cyanosis. Neurovascular intact. Full, normal range of motion. Neuro: Awake and alert, GCS 15, oriented to person, place, time, and situation. Cranial nerves II-XII grossly intact. Motor strength 5/5 in all extremities. Sensory grossly intact. Cerebellar exam normal. Normal gait. Vital Signs: 11:52 BP 175 / 68; Pulse 103; Resp 19; Temp 97.2(TE); Pulse Ox 99% on R/A; Weight 99.79 kg; cm10 Height 5 ft. 2 in. ; Pain 10/10; 12:45 BP 161 / 82; Pulse 87; Resp 18; Pulse Ox 99% ; Pain 10/10; ll1 12:59 Resp 17; Pain 7/10; ll1 11:52 Body Mass Index 40.24 (99.79 kg, 157.48 cm) cm10 11:52 Pain Scale: Adult cm10 12:45 Pain Scale: Adult ll1 12:59 Pain Scale: Adult ll1 MDM: 12:05 Medical Screening Exam initiated ci 12:24 Differential diagnosis: otitis media, otitis externa, ruptured TM, foreign body, acute ci otalgia. Data reviewed: vital signs, nurses notes, old medical records. Historians other than the Patient: Parent: Mother reports ear pain. Care significantly affected by the following chronic conditions: Hypertension. ED course: Presents with right ear otalgia. No mastoid tenderness to palpation. No meningismus. Will start on Augmentin and refer to ENT given history of recurrent otitis media.. Administered Medications: 12:25 Drug: Ketorolac IM 30 mg IM once {Note: pain 1010 rass 0.} Route: IM; Site: right ll1 gluteus; 12:45 Follow up: Response: No adverse reaction; Pain is unchanged, physician notified; RASS: ll1 Alert and Calm (0) 13:00 Follow up: Response: No adverse reaction; Pain is decreased; RASS: Alert and Calm (0) ll1 12:25 Drug: Amoxicillin-Clavulanate PO 875 mg PO once Route: PO; ll1 12:36 Follow up: Response: No adverse reaction ll1 Disposition Summary: 03/21/24 12:34 Discharge Ordered Notes: Location: Home ci Condition: Stable ci Problem: an acute exacerbation ci Symptoms: are unchanged ci Diagnosis - Acute serous otitis media, right ear ci - Otitis media in diseases classified elsewhere, right ear ci Followup: ci - With: Private Physician - When: 2 - 3 days - Reason: Recheck today's complaints, Re-evaluation by your physician Discharge Instructions: - Discharge Summary Sheet ci - Otitis Media, Adult ci Forms: - Medication Reconciliation Form ci - Antibiotic Education ci - Prescription Opioid Use ci - Patient Portal Instructions ci - Leadership Thank You Letter ci Prescriptions: - Augmentin 875-125 mg Oral Tablet - take 1 tablet ORAL route every 12 hours for 10 days; 20 tablet; Refills: 0, ci Product Selection Permitted Signatures: Yuri Restrepo RN RN ll1 Joanna Lezama RN RN cm10 Alvino Nayak
[2024-03-21 13:04] VITALS: TEMP 97.2; O2SAT 99
[2024-03-21 13:06] VITALS: BP 161/82
== END 2024-03-21 13:00 | disposition home or self-care (01) ==
LOC: ER 11:37
DX: H65.01 Acute serous otitis media, right ear (principal); H67.1 Otitis media in diseases classified elsewhere, right ear
CPT/HCPCS: 96372; 99284

== ENCOUNTER 2024-06-15 08:46 | Emergency (ER) | payer SELFPAY ==
--- OUTSIDE RECORDS SUMMARY | 2024-06-15 08:52 | XMS REPORT | Continuity of Care Document ---
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 [facility], Fecal, [id number] 00:00:00* Test Item Value Reference Range Interpretation Comme nts Occult Blood, Fecal, IA (byorn t code = 31934-9) Negative Duarte F [facility], Fecal, [id number] 00:00:00* Test Item Value Reference Range Interpretation Comme nts Occult Blood, Fecal, IA (byron t code = 18616-1) Negative Duarte F AustinLIPID [id number] 00:00:00* Test Item Value Reference Range Interpretation Comme nts CHOLESTEROL (test code = 2210) 154 MG/DL TRIGLYCERIDES (test code = 2232) 104 MG/DL HDL CHOLESTEROL (test code = 2220) 51 MG/DL CALC LDL CHOL (test code = 2237) 83 MG/DL RISK RATIO LDL/HDL (test cod e = 2238) 1.63 RATIO Duarte McadamsLIPID [id number] 00:00:00* Test Item Value Reference Range Interpretation Comme nts CHOLESTEROL (test code = 2210) 154 MG/DL TRIGLYCERIDES (test code = 2232) 104 MG/DL HDL CHOLESTEROL (test code = 2220) 51 MG/DL CALC LDL CHOL (test code = 2237) 83 MG/DL RISK RATIO LDL/HDL (test cod e = 2238) 1.63 RATIO Duarte McadamsLIPID [id number] 00:00:00* Test Item Value Reference Range Interpretation Comme nts CHOLESTEROL (test code = 2210) 154 MG/DL TRIGLYCERIDES (test code = 2232) 104 MG/DL HDL CHOLESTEROL (test code = 2220) 51 MG/DL CALC LDL CHOL (test code = 2237) 83 MG/DL RISK RATIO LDL/HDL (test cod e = 2238) 1.63 RATIO Duarte McadamsLIPID [id number] 00:00:00* Test Item Value Reference Range Interpretation Comme nts CHOLESTEROL (test code = 2210) 154 MG/DL TRIGLYCERIDES (test code = 2232) 104 MG/DL HDL CHOLESTEROL (test code = 2220) 51 MG/DL CALC LDL CHOL (test code = 2237) 83 MG/DL RISK RATIO LDL/HDL (test cod e = 2238) 1.63 RATIO Duarte McadamsLIPID [id number] 00:00:00* Test Item Value Reference Range Interpretation Comme nts CHOLESTEROL (test code = 2210) 154 MG/DL TRIGLYCERIDES (test code = 2232) 104 MG/DL HDL CHOLESTEROL (test code = 2220) 51 MG/DL CALC LDL CHOL (test code = 2237) 83 MG/DL RISK RATIO LDL/HDL (test cod e = 2238) 1.63 RATIO Duarte McadamsLIPID [id number] 00:00:00* Test Item Value Reference Range Interpretation Comme nts CHOLESTEROL (test code = 2210) 154 MG/DL TRIGLYCERIDES (test code = 2232) 104 MG/DL HDL CHOLESTEROL (test code = 2220) 51 MG/DL CALC LDL CHOL (test code = 2237) 83 MG/DL RISK RATIO LDL/HDL (test cod e = 2238) 1.63 RATIO Duarte McadamsLIPID [id number] 00:00:00* Test Item Value Reference Range Interpretation Comme nts CHOLESTEROL (test code = 2210) 154 MG/DL TRIGLYCERIDES (test code = 2232) 104 MG/DL HDL CHOLESTEROL (test code = 2220) 51 MG/DL CALC LDL CHOL (test code = 2237) 83 MG/DL RISK RATIO LDL/HDL (test cod e = 2238) 1.63 RATIO Duarte McadamsFREE T4 (THYROXINE)2023-06-30 00:00:00* Test Item Value Reference Range Interpretation Comme nts FREE T4 (THYROXINE) (test co de = 2823) 0.98 NG/DL Duarte McadamsT3 [id number] 00:00:00* Test Item Value Reference Range Interpretation Comme nts T3 TOTAL (test code = 2818) 146 NG/DL Duarte McadamsCOMPREHENSIVE METABOLIC [id number] 00:00:00* Test Item Value Reference Range Interpretation Comme nts GLUCOSE (test code = 2217) 120 MG/DL BUN (test code = 2208) 9 MG/DL CREATININE (test code = 2214) 0.62 MG/DL eGFR (2020 CKD-EPI) (test code = 50339) 110 ML/MIN/1.73 CALC BUN/CREAT (test code = [...] = 2219) 15 U/L Duarte June, THIRD [id number] 00:00:00* Test Item Value Reference Range Interpretation Comme nts TSH, THIRD GENERATION (test code = 2821) 11.300 UIU/ML Duarte McadamsFREE T4 (THYROXINE)2023-06-30 00:00:00* Test Item Value Reference Range Interpretation Comme nts FREE T4 (THYROXINE) (test co de = 2823) 0.98 NG/DL Duarte McadamsT3 [id number] 00:00:00* Test Item Value Reference Range Interpretation Comme nts T3 TOTAL (test code = 2818) 146 NG/DL Duarte McadamsCOMPREHENSIVE METABOLIC [id number] 00:00:00* Test Item Value Reference Range Interpretation Comme nts GLUCOSE (test code = 2217) 120 MG/DL BUN (test code = 2208) 9 MG/DL CREATININE (test code = 2214) 0.62 MG/DL eGFR (2020 CKD-EPI) (test code = 11163) 110 ML/MIN/1.73 CALC BUN/CREAT (test code = [...] = 2219) 15 U/L Duarte June, THIRD [id number] 00:00:00* Test Item Value Reference Range Interpretation Comme nts TSH, THIRD GENERATION (test code = 2821) 11.300 UIU/ML Duarte McadamsFREE T4 (THYROXINE)2023-06-30 00:00:00* Test Item Value Reference Range Interpretation Comme nts FREE T4 (THYROXINE) (test co de = 2823) 0.98 NG/DL Duarte McadamsT3 [id number] 00:00:00* Test Item Value Reference Range Interpretation Comme nts T3 TOTAL (test code = 2818) 146 NG/DL Duarte McadamsCOMPREHENSIVE METABOLIC [id number] 00:00:00* Test Item Value Reference Range Interpretation Comme nts GLUCOSE (test code = 2217) 120 MG/DL BUN (test code = 2208) 9 MG/DL CREATININE (test code = 2214) 0.62 MG/DL eGFR (2020 CKD-EPI) (test code = 28921) 110 ML/MIN/1.73 CALC BUN/CREAT (test code = [...] = 2219) 15 U/L Duarte McadamsTSH, THIRD [id number] 00:00:00* Test Item Value Reference Range Interpretation Comme nts TSH, THIRD GENERATION (test code = 2821) 11.300 UIU/ML Duarte MauricioEE T4 (THYROXINE)2023-06-30 00:00:00* Test Item Value Reference Range Interpretation Comme nts FREE T4 (THYROXINE) (test co de = 2823) 0.98 NG/DL Duarte McadamsT3 [id number] 00:00:00* Test Item Value Reference Range Interpretation Comme nts T3 TOTAL (test code = 2818) 146 NG/DL Duarte McadamsCOMPREHENSIVE METABOLIC [id number] 00:00:00* Test Item Value Reference Range Interpretation Comme nts GLUCOSE (test code = 2217) 120 MG/DL BUN (test code = 2208) 9 MG/DL CREATININE (test code = 2214) 0.62 MG/DL eGFR (2020 CKD-EPI) (test code = 38114) 110 ML/MIN/1.73 CALC BUN/CREAT (test code = [...] = 2219) 15 U/L Duarte McadamsTSH, THIRD [id number] 00:00:00* Test Item Value Reference Range Interpretation Comme nts TSH, THIRD GENERATION (test code = 2821) 11.300 UIU/ML Duarte McadamsFREE T4 (THYROXINE)2023-06-30 00:00:00* Test Item Value Reference Range Interpretation Comme nts FREE T4 (THYROXINE) (test co de = 2823) 0.98 NG/DL Duarte McadamsT3 [id number] 00:00:00* Test Item Value Reference Range Interpretation Comme nts T3 TOTAL (test code = 2818) 146 NG/DL Duarte McadamsCOMPREHENSIVE METABOLIC [id number] 00:00:00* Test Item Value Reference Range Interpretation Comme nts GLUCOSE (test code = 2217) 120 MG/DL BUN (test code = 2208) 9 MG/DL CREATININE (test code = 2214) 0.62 MG/DL eGFR (2020 CKD-EPI) (test code = 97972) 110 ML/MIN/1.73 CALC BUN/CREAT (test code = [...] = 2219) 15 U/L Duarte McadamsTSH, THIRD [id number] 00:00:00* Test Item Value Reference Range Interpretation Comme nts TSH, THIRD GENERATION (test code = 2821) 11.300 UIU/ML Duarte McadamsFREE T4 (THYROXINE)2023-06-30 00:00:00* Test Item Value Reference Range Interpretation Comme nts FREE T4 (THYROXINE) (test co de = 2823) 0.98 NG/DL Duarte McadamsT3 [id number] 00:00:00* Test Item Value Reference Range Interpretation Comme nts T3 TOTAL (test code = 2818) 146 NG/DL uDarte McadamsCOMPREHENSIVE METABOLIC [id number] 00:00:00* Test Item Value Reference Range Interpretation Comme nts GLUCOSE (test code = 2217) 120 MG/DL BUN (test code = 2208) 9 MG/DL CREATININE (test code = 2214) 0.62 MG/DL eGFR (2020 CKD-EPI) (test code = 25709) 110 ML/MIN/1.73 CALC BUN/CREAT (test code = [...] = 2219) 15 U/L Duarte McadamsTSH, THIRD [id number] 00:00:00* Test Item Value Reference Range Interpretation Comme nts TSH, THIRD GENERATION (test code = 2821) 11.300 UIU/ML Duarte McadamsFREE T4 (THYROXINE)2023-06-30 00:00:00* Test Item Value Reference Range Interpretation Comme nts FREE T4 (THYROXINE) (test co de = 2823) 0.98 NG/DL Duarte McadamsT3 [id number] 00:00:00* Test Item Value Reference Range Interpretation Comme nts T3 TOTAL (test code = 2818) 146 NG/DL Duarte McadamsCOMPREHENSIVE METABOLIC [id number] 00:00:00* Test Item Value Reference Range Interpretation Comme nts GLUCOSE (test code = 2217) 120 MG/DL BUN (test code = 2208) 9 MG/DL CREATININE (test code = 2214) 0.62 MG/DL eGFR (2020 CKD-EPI) (test code = 58355) 110 ML/MIN/1.73 CALC BUN/CREAT (test code = [...] (test code = 2219) 15 U/L Duarte LeungH, THIRD [id number] 00:00:00* Test Item Value Reference Range Interpretation Comme nts TSH, THIRD GENERATION (test code = 2821) 11.300 UIU/ML Duarte McadamsVITAMIN D, 25 [id number] 04:25:40* Test Item Value Reference Range Interpretation [...] . . . . NG/ML 30-100 VITAMIN [id number] 04:24:45* Test Item Value Reference Range Interpretation Comme [facility] VITAMIN B-12 (test code = 2840) 644 PG/ML 200-950 TSH, THIRD [id number] 04:24:00* Test Item Value Reference Range Interpretation Comme [facility] TSH, THIRD GENERATION (test code = 2821) 5.480 UIU/ML 0.400-4.100 H LIPID [id number] 04:10:37* Test Item Value Reference Range Interpretation [...] SPECIMENS. FOR MOREINFORMATION, SEE CLIENT ANNOUNCEMENT AT [email or web address] RISK RATIO LDL/HDL (test code = 2237) 1.93 RATIO <3.22 COMPREHENSIVE METABOLIC [id number] 04:10:37* Test Item Value Reference Range Interpretation Comme nts GLUCOSE (test code = 2216) 137 MG/DL 70-99 H BUN (test code = 2207) 7 MG/DL 6-20 CREATININE (test code = 2213) 0.67 MG/DL 0.60-1.30 eGFR (2020 CKD-EPI) (test code = 67998) 108 ML/MIN/1.73 >60 CALC BUN/CREAT (test code = 5) 10 RATIO 6-28 SODIUM (test code = 2230) 139 MEQ/L 133-146 POTASSIUM (test code = 2227) 3.9 MEQ/L 3.5-5.4 CHLORIDE (test code = 5) 103 MEQ/L 95-107 CARBON DIOXIDE (test code = 2205) 25 MEQ/L 19-31 CALCIUM (test code = 2208) 9.1 MG/DL 8.5-10.5 PROTEIN, TOTAL (test code = 2228) 7.1 G/DL 6.1-8.3 ALBUMIN (test code = 2200) 4.2 G/DL 3.5-5.2 CALC GLOBULIN (test code = 2240) 2.9 G/DL 1.9-3.7 CALC A/G RATIO (test code = 223) 1.4 RATIO 1.0-2.6 BILIRUBIN, TOTAL (test code = 2206) 0.2 MG/DL See_Comment [Automated me ssage] The system which generated this result transmitted reference range: <=1.2. The reference range was not used to interpret this result as normal/abnormal. ALKALINE PHOSPHATASE (test code = 2203) 99 U/L 40-120 AST (test code = 8) 12 U/L 9-40 ALT (test code = 2219) 22 U/L 5-40 [id number] 03:49:46* Test Item Value Reference Range Interpretation Comme nts MAGNESIUM (test code = 2226) 2.2 MG/DL 1.6-2.6 UNLESS OTHERWISE INDICATED, ALL TESTING PERFORMED AT [facility] [address] [place] [id number] SENIOR ADMINISTRATIVE SUPPORT: NENA FERNANDEZ M.D. CLIA NUMBER [id number] [facility] [place]. [id number] HEMOGLOBIN [id number] 02:55:59* Test Item Value Reference Range Interpretation Comme nts HEMOGLOBIN A1c (test code = 33862) 6.2 % 4.2-5.6 H [facility] [employer] [employer] GUIDELINES FOR HGB A1C: [...] OR LABORATORY CONSULTATION. CBC W/AUTO DIFF WITH [id number] 02:25:06* Test Item Value Reference Range Interpretation [...] = 1065) 0.0 /100 WBC'S See_Comment [Automated messa ge] The system which generated this result [...] 0.00-0.10 ABS NUCLEATED RBCS (test code = 86316) 0.00 K/UL 0.00-0.11 LIPID [id number] 00:00:00* Test Item Value Reference Range Interpretation Comme nts CHOLESTEROL (test code = 2210) 154 MG/DL TRIGLYCERIDES (test code = 2232) 152 MG/DL HDL CHOLESTEROL (test code = 2220) 44 MG/DL CALC LDL CHOL (test code = 2237) 85 MG/DL RISK RATIO LDL/HDL (test cod e = 2238) 1.93 RATIO Duarte F AustinCOMPREHENSIVE METABOLIC [id number] 00:00:00* Test Item Value Reference Range Interpretation Comme nts GLUCOSE (test code = 2217) 137 MG/DL BUN (test code = 2208) 7 MG/DL CREATININE (test code = 2214) 0.67 MG/DL eGFR (2020 CKD-EPI) (test code = 67624) 108 ML/MIN/1.73 CALC BUN/CREAT (test code = [...] = 2219) 22 U/L Duarte McadamsTSH, THIRD [id number] 00:00:00* Test Item Value Reference Range Interpretation Comme [facility] TSH, THIRD GENERATION (test code = 2821) 5.480 UIU/ML Duarte McadamsVITAMIN [id number] 00:00:00* Test Item Value Reference Range Interpretation Comme [facility] VITAMIN B-12 (test code = 2840) 644 PG/ML Duarte McadamsVITAMIN D, 25 [id number] 00:00:00* Test Item Value Reference Range Interpretation Comme [facility] VITAMIN D, 25 OH (test code = 4958) 14 NG/ML Duarte [id number] 00:00:00* Test Item Value Reference Range Interpretation Comme [facility] MAGNESIUM (test code = 2226) 2.2 MG/DL Duarte McadamsCBC W/AUTO [id number] 00:00:00* Test Item Value Reference Range Interpretation Comme [facility] WBC (test code = 1001) 9.1 K/UL [...] ABS NUCLEATED RBCS (test cod e = 92239) 0.00 K/UL Duarte McadamsHEMOGLOBIN [id number] 00:00:00* Test Item Value Reference Range Interpretation Comme nts HEMOGLOBIN A1c (test code = 14002) 6.2 % Duarte McadamsLIPID [id number] 00:00:00* Test Item Value Reference Range Interpretation Comme nts CHOLESTEROL (test code = 2210) 154 MG/DL TRIGLYCERIDES (test code = 2232) 152 MG/DL HDL CHOLESTEROL (test code = 2220) 44 MG/DL CALC LDL CHOL (test code = 2237) 85 MG/DL RISK RATIO LDL/HDL (test cod e = 2238) 1.93 RATIO Duarte McadamsCOMPREHENSIVE METABOLIC [id number] 00:00:00* Test Item Value Reference Range Interpretation Comme nts GLUCOSE (test code = 2217) 137 MG/DL BUN (test code = 2208) 7 MG/DL CREATININE (test code = 2214) 0.67 MG/DL eGFR (2020 CKD-EPI) (test code = 71848) 108 ML/MIN/1.73 CALC BUN/CREAT (test code = [...] (test code = 2219) 22 U/L Duarte June, THIRD [id number] 00:00:00* Test Item Value Reference Range Interpretation Comme [facility] TSH, THIRD GENERATION (test code = 2821) 5.480 UIU/ML Duarte McadamsVITAMIN [id number] 00:00:00* Test Item Value Reference Range Interpretation Comme [facility] VITAMIN B-12 (test code = 2840) 644 PG/ML Duarte McadamsVITAMIN D, 25 [id number] 00:00:00* Test Item Value Reference Range Interpretation Comme [facility] VITAMIN D, 25 OH (test code = 4958) 14 NG/ML Duarte [id number] 00:00:00* Test Item Value Reference Range Interpretation Comme [facility] MAGNESIUM (test code = 2226) 2.2 MG/DL Duarte McadamsCBC W/AUTO [id number] 00:00:00* Test Item Value Reference Range Interpretation Comme [facility] WBC (test code = 1001) 9.1 K/UL [...] ABS NUCLEATED RBCS (test cod e = 40890) 0.00 K/UL Duarte McadamsHEMOGLOBIN [id number] 00:00:00* Test Item Value Reference Range Interpretation Comme nts HEMOGLOBIN A1c (test code = 98616) 6.2 % Duarte McadamsLIPID [id number] 00:00:00* Test Item Value Reference Range Interpretation Comme nts CHOLESTEROL (test code = 2210) 154 MG/DL TRIGLYCERIDES (test code = 2232) 152 MG/DL HDL CHOLESTEROL (test code = 2220) 44 MG/DL CALC LDL CHOL (test code = 2237) 85 MG/DL RISK RATIO LDL/HDL (test cod e = 2238) 1.93 RATIO Duarte McadamsCOMPREHENSIVE METABOLIC [id number] 00:00:00* Test Item Value Reference Range Interpretation Comme nts GLUCOSE (test code = 2217) 137 MG/DL BUN (test code = 2208) 7 MG/DL CREATININE (test code = 2214) 0.67 MG/DL eGFR (2020 CKD-EPI) (test code = 52299) 108 ML/MIN/1.73 CALC BUN/CREAT (test code = [...] = 2219) 22 U/L Duarte McadamsTSH, THIRD [id number] 00:00:00* Test Item Value Reference Range Interpretation Comme [facility] TSH, THIRD GENERATION (test code = 2821) 5.480 UIU/ML Duarte McadamsVITAMIN [id number] 00:00:00* Test Item Value Reference Range Interpretation Comme [facility] VITAMIN B-12 (test code = 2840) 644 PG/ML Duarte McadamsVITAMIN D, 25 [id number] 00:00:00* Test Item Value Reference Range Interpretation Comme [facility] VITAMIN D, 25 OH (test code = 4958) 14 NG/ML Duarte [id number] 00:00:00* Test Item Value Reference Range Interpretation Comme [facility] MAGNESIUM (test code = 2226) 2.2 MG/DL Duarte McadamsCBC W/AUTO [id number] 00:00:00* Test Item Value Reference Range Interpretation [...] ABS NUCLEATED RBCS (test cod e = 37201) 0.00 K/UL Duarte McadamsHEMOGLOBIN [id number] 00:00:00* Test Item Value Reference Range Interpretation Comme nts HEMOGLOBIN A1c (test code = 09689) 6.2 % Duarte McadamsLIPID [id number] 00:00:00* Test Item Value Reference Range Interpretation Comme nts CHOLESTEROL (test code = 2210) 154 MG/DL TRIGLYCERIDES (test code = 2232) 152 MG/DL HDL CHOLESTEROL (test code = 2220) 44 MG/DL CALC LDL CHOL (test code = 2237) 85 MG/DL RISK RATIO LDL/HDL (test cod e = 2238) 1.93 RATIO Duarte McadamsCOMPREHENSIVE METABOLIC [id number] 00:00:00* Test Item Value Reference Range Interpretation Comme nts GLUCOSE (test code = 2217) 137 MG/DL BUN (test code = 2208) 7 MG/DL CREATININE (test code = 2214) 0.67 MG/DL eGFR (2020 CKD-EPI) (test code = 07475) 108 ML/MIN/1.73 CALC BUN/CREAT (test code = [...] = 2219) 22 U/L Duarte McadamsRIRI, THIRD [id number] 00:00:00* Test Item Value Reference Range Interpretation Comme nts TSH, THIRD GENERATION (test code = 2821) 5.480 UIU/ML Duarte McadamsVITAMIN [id number] 00:00:00* Test Item Value Reference Range Interpretation Comme [facility] VITAMIN B-12 (test code = 2840) 644 PG/ML Duarte McadamsVITAMIN D, 25 [id number] 00:00:00* Test Item Value Reference Range Interpretation Comme [facility] VITAMIN D, 25 OH (test code = 4958) 14 NG/ML Duarte [id number] 00:00:00* Test Item Value Reference Range Interpretation Comme [facility] MAGNESIUM (test code = 2226) 2.2 MG/DL Duarte McadamsCBC W/AUTO [id number] 00:00:00* Test Item Value Reference Range Interpretation [...] ABS NUCLEATED RBCS (test cod e = 95353) 0.00 K/UL Duarte McadamsHEMOGLOBIN [id number] 00:00:00* Test Item Value Reference Range Interpretation Comme [facility] HEMOGLOBIN A1c (test code = 94971) 6.2 % Duarte McadamsLIPID [id number] 00:00:00* Test Item Value Reference Range Interpretation Comme nts CHOLESTEROL (test code = 2210) 154 MG/DL TRIGLYCERIDES (test code = 2232) 152 MG/DL HDL CHOLESTEROL (test code = 2220) 44 MG/DL CALC LDL CHOL (test code = 2237) 85 MG/DL RISK RATIO LDL/HDL (test cod e = 2238) 1.93 RATIO Duarte McadamsCOMPREHENSIVE METABOLIC [id number] 00:00:00* Test Item Value Reference Range Interpretation Comme nts GLUCOSE (test code = 2217) 137 MG/DL BUN (test code = 2208) 7 MG/DL CREATININE (test code = 2214) 0.67 MG/DL eGFR (2020 CKD-EPI) (test code = 60702) 108 ML/MIN/1.73 CALC BUN/CREAT (test code = [...] = 2219) 22 U/L Duarte McadamsTSH, THIRD [id number] 00:00:00* Test Item Value Reference Range Interpretation Comme nts TSH, THIRD GENERATION (test code = 2821) 5.480 UIU/ML Duarte McadamsVITAMIN [id number] 00:00:00* Test Item Value Reference Range Interpretation Comme nts VITAMIN B-12 (test code = 2840) 644 PG/ML Duarte McadamsVITAMIN D, 25 [id number] 00:00:00* Test Item Value Reference Range Interpretation Comme nts VITAMIN D, 25 OH (test code = 4958) 14 NG/ML Duarte [id number] 00:00:00* Test Item Value Reference Range Interpretation Comme nts MAGNESIUM (test code = 2226) 2.2 MG/DL Duarte McadamsCBC W/AUTO [id number] 00:00:00* Test Item Value Reference Range Interpretation [...] ABS NUCLEATED RBCS (test cod e = 23841) 0.00 K/UL Duarte McadamsHEMOGLOBIN [id number] 00:00:00* Test Item Value Reference Range Interpretation Comme nts HEMOGLOBIN A1c (test code = 78383) 6.2 % Duarte McadamsLIPID [id number] 00:00:00* Test Item Value Reference Range Interpretation Comme nts CHOLESTEROL (test code = 2210) 154 MG/DL TRIGLYCERIDES (test code = 2232) 152 MG/DL HDL CHOLESTEROL (test code = 2220) 44 MG/DL CALC LDL CHOL (test code = 2237) 85 MG/DL RISK RATIO LDL/HDL (test cod e = 2238) 1.93 RATIO Duarte McadamsCOMPREHENSIVE METABOLIC [id number] 00:00:00* Test Item Value Reference Range Interpretation Comme nts GLUCOSE (test code = 2217) 137 MG/DL BUN (test code = 2208) 7 MG/DL CREATININE (test code = 2214) 0.67 MG/DL eGFR (2020 CKD-EPI) (test code = 19407) 108 ML/MIN/1.73 CALC BUN/CREAT (test code = [...] = 2219) 22 U/L Duarte McadamsTSH, THIRD [id number] 00:00:00* Test Item Value Reference Range Interpretation Comme [facility] TSH, THIRD GENERATION (test code = 2821) 5.480 UIU/ML Duarte McadamsVITAMIN [id number] 00:00:00* Test Item Value Reference Range Interpretation Comme carola VITAMIN B-12 (test code = 2840) 644 PG/ML Duarte McadamsVITAMIN D, 25 [id number] 00:00:00* Test Item Value Reference Range Interpretation Comme nts VITAMIN D, 25 OH (test code = 4958) 14 NG/ML Duarte [id number] 00:00:00* Test Item Value Reference Range Interpretation Comme nts MAGNESIUM (test code = 2226) 2.2 MG/DL Duarte McadamsCBC W/AUTO [id number] 00:00:00* Test Item Value Reference Range Interpretation [...] ABS NUCLEATED RBCS (test cod e = 91272) 0.00 K/UL Duarte McadamsHEMOGLOBIN [id number] 00:00:00* Test Item Value Reference Range Interpretation Comme nts HEMOGLOBIN A1c (test code = 83347) 6.2 % Duarte McadamsLIPID [id number] 00:00:00* Test Item Value Reference Range Interpretation Comme nts CHOLESTEROL (test code = 2210) 154 MG/DL TRIGLYCERIDES (test code = 2232) 152 MG/DL HDL CHOLESTEROL (test code = 2220) 44 MG/DL CALC LDL CHOL (test code = 2237) 85 MG/DL RISK RATIO LDL/HDL (test cod e = 2238) 1.93 RATIO Duarte McadamsCOMPREHENSIVE METABOLIC [id number] 00:00:00* Test Item Value Reference Range Interpretation Comme nts GLUCOSE (test code = 2217) 137 MG/DL BUN (test code = 2208) 7 MG/DL CREATININE (test code = 2214) 0.67 MG/DL eGFR (2020 CKD-EPI) (test code = 13737) 108 ML/MIN/1.73 CALC BUN/CREAT (test code = [...] = 2219) 22 U/L Duarte McadamsTSH, THIRD [id number] 00:00:00* Test Item Value Reference Range Interpretation Comme [facility] TSH, THIRD GENERATION (test code = 2821) 5.480 UIU/ML Duarte McadamsVITAMIN [id number] 00:00:00* Test Item Value Reference Range Interpretation Comme [facility] VITAMIN B-12 (test code = 2840) 644 PG/ML Duarte McadamsVITAMIN D, 25 [id number] 00:00:00* Test Item Value Reference Range Interpretation Comme [facility] VITAMIN D, 25 OH (test code = 4958) 14 NG/ML Duarte [id number] 00:00:00* Test Item Value Reference Range Interpretation Comme nts MAGNESIUM (test code = 2226) 2.2 MG/DL Duarte McadamsCBC W/AUTO [id number] 00:00:00* Test Item Value Reference Range Interpretation [...] ABS NUCLEATED RBCS (test cod e = 50174) 0.00 K/UL Duarte McadamsHEMOGLOBIN [id number] 00:00:00* Test Item Value Reference Range Interpretation Comme nts HEMOGLOBIN A1c (test code = 58291) 6.2 % Duarte ClayJALEEL, [id number] 00:00:00* Test Item Value Reference Range Interpretation Comme nts CULTURE, URINE (test code = 78909) SPECIMEN NUMBER: [id number] Duarte McadamsCUJALEEL, [id number] 00:00:00* Test Item Value Reference Range Interpretation Comme nts CULTURE, URINE (test code = 28811) SPECIMEN NUMBER: [id number] Duarte ClayLTURE, [id number] 00:00:00* Test Item Value Reference Range Interpretation Comme nts CULTURE, URINE (test code = 37739) SPECIMEN NUMBER: [id number] Duarte ClayLTJALEEL, [id number] 00:00:00* Test Item Value Reference Range Interpretation Comme nts CULTURE, URINE (test code = 66374) SPECIMEN NUMBER: [id number] Duarte McadamsCULTURE, [id number] 00:00:00* Test Item Value Reference Range Interpretation Comme nts CULTURE, URINE (test code = 98189) SPECIMEN NUMBER: [id number] Duarte ClayLTJALEEL, [id number] 00:00:00* Test Item Value Reference Range Interpretation Comme nts CULTURE, URINE (test code = 62274) SPECIMEN NUMBER: [id number] Duarte Moralez, [id number] 00:00:00* Test Item Value Reference Range Interpretation Comme nts CULTURE, URINE (test code = 46207) SPECIMEN NUMBER: [id number] Duarte Olsen AustinVAGINAL PATHOGENS DNA [id number] 00:00:00* Test Item Value Reference Range Interpretation Comme nts LADARIUS SPECIES (test code = 69326) NEGATIVE G. VAGINALIS (test code = 76713) POSITIVE T. VAGINALIS (test code = 78952) NEGATIVE Duarte Olsen AustinVAGINAL PATHOGENS DNA [id number] 00:00:00* Test Item Value Reference Range Interpretation Comme nts LADARIUS SPECIES (test code = 61934) NEGATIVE G. VAGINALIS (test code = 71347) POSITIVE T. VAGINALIS (test code = 55783) NEGATIVE Duarte Olsen AustinVAGINAL PATHOGENS DNA [id number] 00:00:00* Test Item Value Reference Range Interpretation Comme nts LADARIUS SPECIES (test code = 89925) NEGATIVE G. VAGINALIS (test code = 12736) POSITIVE T. VAGINALIS (test code = 24789) NEGATIVE Duarte Olsen AustinVAGINAL PATHOGENS DNA [id number] 00:00:00* Test Item Value Reference Range Interpretation Comme nts LADARIUS SPECIES (test code = 79983) NEGATIVE G. VAGINALIS (test code = 15865) POSITIVE T. VAGINALIS (test code = 70054) NEGATIVE Duarte Olsen AustinVAGINAL PATHOGENS DNA [id number] 00:00:00* Test Item Value Reference Range Interpretation Comme nts LADARIUS SPECIES (test code = 65135) NEGATIVE G. VAGINALIS (test code = 24091) POSITIVE T. VAGINALIS (test code = 68345) NEGATIVE Duarte Olsen AustinVAGINAL PATHOGENS DNA [id number] 00:00:00* Test Item Value Reference Range Interpretation Comme nts LADARIUS SPECIES (test code = 70097) NEGATIVE G. VAGINALIS (test code = 06558) POSITIVE T. VAGINALIS (test code = 48987) NEGATIVE Duarte Olsen AustinVAGINAL PATHOGENS DNA [id number] 00:00:00* Test Item Value Reference Range Interpretation Comme nts LADARIUS SPECIES (test code = 38876) NEGATIVE G. VAGINALIS (test code = 47373) POSITIVE T. VAGINALIS (test code = 30960) NEGATIVE Duarte McadamsPAP TEST, THINPREP, [id number] 09:49:08* Test Item Value Reference Range Interpretation Comme nts SOURCE: (test code = 8001) Cervical SLIDES: (test code = 8011) 1 LMP: (test code = 8021) 12/23/2021 SPECIMEN ADEQUACY: (test code = 18331) (NOTE) Satisfactory for evaluation. Endocervical cells/transformation zone component not identified. INTERPRETATION: (test code = 19722) NILM/NO EPITH. ABNORMALITY;SEE BELOW --- - NEGATIVE FOR INTRAEPITHELIAL LESION OR MALIGNANCY (NILM) ---- FUR SEWER : (test code = 8101) KORY Manzo (ASCP) LOCATION: (test code = 13849) (NOTE) Specimens proces sed and interpreted at [facility], [address] [place] [address], , CLIA: [id number] CPT: (test code = 8140) (NOTE) 11027 UNLESS OTH ERWISE INDICATED, COMPUTER AIDED AND FUR SEWER SCREENING PERFORMED. The Pap test is a screening test with an inherent, but low probability of error. Your patient should be reminded to consult you immediately if she experiences any suspicious signs or symptoms, regardless of her Pap test result. An alternate report format containing images or consolidated prior Pap history is available as applicable. HPV HIGH RISK WITH GENOTYPE, [id number] 09:41:10* Test Item Value Reference Range Interpretation Comme nts HPV HIGH RISK INTERP (test code = 83919) NEGATIVE NEGATIVE HPV 16 (test code = 63354) NEGATIVE HPV 18 (test code = 78340) NEGATIVE HPV, HR, OTHER GENOTYPES (test code = 09039) NEGATIVE Testing methodol ogy is real-time PCR utilizing hydrolysis probes with the Lora Jamey 4800 system. The test individually detects genotypes 16 and 18, as well as the other 12 high risk types (31,33,35,39,45,51,52,56 ,58,59,66,68). The expected result is negative. A negative result does not rule out the presence of HPV not included in the genotype set, a low level of infection or specimen sampling error. UNLESS OTHERWISE INDICATED, ALL TESTING PERFORMED [facility]. [address] [place] [address] SENIOR ADMINISTRATIVE SUPPORT: SUSAN GOTTI M.D. CLIA NUMBER [id number] [facility] [place]. [id number] PAP TEST, THINPREP, [id number] 00:00:00* Test Item Value Reference Range Interpretation Comme nts SOURCE: (test code = 8001) Cervical SLIDES: (test code = 8011) 1 LMP: (test code = 8021) 12/23/2021 SPECIMEN ADEQUACY: (test code = 95556) (NOTE) INTERPRETATION: (test code = 93387) NILM/NO EPITH. ABNORMALITY;SEE BELOW FUR SEWER: (test code = 8101) Christiana Lin CT (ASCP) LOCATION: (test code = 07530) (NOTE) CPT: (test code = 8140) (NOTE) Duarte McadamsHPV HIGH RISK WITH GENOTYPE, [id number] 00:00:00* Test Item Value Reference Range Interpretation Comme nts HPV HIGH RISK INTERP (test c ode = 70391) NEGATIVE HPV 16 (test code = 00130) NEGATIVE HPV 18 (test code = 59838) NEGATIVE HPV, HR, OTHER GENOTYPES (te st code = 27757) NEGATIVE Duarte McadamsPAP TEST, THINPREP, [id number] 00:00:00* Test Item Value Reference Range Interpretation Comme nts SOURCE: (test code = 8001) Cervical SLIDES: (test code = 8011) 1 LMP: (test code = 8021) 12/23/2021 SPECIMEN ADEQUACY: (test code = 15926) (NOTE) INTERPRETATION: (test code = 58803) NILM/NO EPITH. ABNORMALITY;SEE BELOW FUR SEWER: (test code = 8101) Christiana Lin CT (ASCP) LOCATION: (test code = 92969) (NOTE) CPT: (test code = 8140) (NOTE) Duarte McadamsHPV HIGH RISK WITH GENOTYPE, [id number] 00:00:00* Test Item Value Reference Range Interpretation Comme nts HPV HIGH RISK INTERP (test c ode = 49408) NEGATIVE HPV 16 (test code = 75114) NEGATIVE HPV 18 (test code = 65028) NEGATIVE HPV, HR, OTHER GENOTYPES (te st code = 71182) NEGATIVE Duarte McadamsPAP TEST, THINPREP, [id number] 00:00:00* Test Item Value Reference Range Interpretation Comme nts SOURCE: (test code = 8001) Cervical SLIDES: (test code = 8011) 1 LMP: (test code = 8021) 12/23/2021 SPECIMEN ADEQUACY: (test code = 27540) (NOTE) INTERPRETATION: (test code = 28514) NILM/NO EPITH. ABNORMALITY;SEE BELOW FUR SEWER: (test code = 8101) Christiana Lin CT (ASCP) LOCATION: (test code = 24505) (NOTE) CPT: (test code = 8140) (NOTE) Duarte Olsen AustinHPV HIGH RISK WITH GENOTYPE, [id number] 00:00:00* Test Item Value Reference Range Interpretation Comme nts HPV HIGH RISK INTERP (test c ode = 28888) NEGATIVE HPV 16 (test code = 49031) NEGATIVE HPV 18 (test code = 66455) NEGATIVE HPV, HR, OTHER GENOTYPES (te st code = 28075) NEGATIVE Duarte McadamsPAP TEST, THINPREP, [id number] 00:00:00* Test Item Value Reference Range Interpretation Comme nts SOURCE: (test code = 8001) Cervical SLIDES: (test code = 8011) 1 LMP: (test code = 8021) 12/23/2021 SPECIMEN ADEQUACY: (test code = 90965) (NOTE) INTERPRETATION: (test code = 98495) NILM/NO EPITH. ABNORMALITY;SEE BELOW FUR SEWER: (test code = 8101) [place], [place] (ASCP) LOCATION: (test code = 74218) (NOTE) CPT: (test code = 8140) (NOTE) Duarte Olsen AustinHPV HIGH RISK WITH GENOTYPE, [id number] 00:00:00* Test Item Value Reference Range Interpretation Comme nts HPV HIGH RISK INTERP (test c ode = 83058) NEGATIVE HPV 16 (test code = 03134) NEGATIVE HPV 18 (test code = 62740) NEGATIVE HPV, HR, OTHER GENOTYPES (te st code = 52478) NEGATIVE Duarte McadamsPAP TEST, THINPREP, [id number] 00:00:00* Test Item Value Reference Range Interpretation Comme nts SOURCE: (test code = 8001) Cervical SLIDES: (test code = 8011) 1 LMP: (test code = 8021) 12/23/2021 SPECIMEN ADEQUACY: (test code = 82702) (NOTE) INTERPRETATION: (test code = 84285) NILM/NO EPITH. ABNORMALITY;SEE BELOW FUR SEWER: (test code = 8101) Christiana Case Lin [place] (ASCP) LOCATION: (test code = 65531) (NOTE) CPT: (test code = 8140) (NOTE) Duarte Olsen AustinHPV HIGH RISK WITH GENOTYPE, [id number] 00:00:00* Test Item Value Reference Range Interpretation Comme nts HPV HIGH RISK INTERP (test c ode = 04157) NEGATIVE HPV 16 (test code = 97083) NEGATIVE HPV 18 (test code = 02337) NEGATIVE HPV, HR, OTHER GENOTYPES (te st code = 98137) NEGATIVE Duarte Olsen AustinPAP TEST, THINPREP, [id number] 00:00:00* Test Item Value Reference Range Interpretation Comme nts SOURCE: (test code = 8001) Cervical SLIDES: (test code = 8011) 1 LMP: (test code = 8021) 12/23/2021 SPECIMEN ADEQUACY: (test code = 07388) (NOTE) INTERPRETATION: (test code = 12216) NILM/NO EPITH. ABNORMALITY;SEE BELOW FUR SEWER: (test code = 8101) Christiana Lin [place] (ASCP) LOCATION: (test code = 71005) (NOTE) CPT: (test code = 8140) (NOTE) Duarte Olsen AustinHPV HIGH RISK WITH GENOTYPE, [id number] 00:00:00* Test Item Value Reference Range Interpretation Comme nts HPV HIGH RISK INTERP (test c ode = 31234) NEGATIVE HPV 16 (test code = 82093) NEGATIVE HPV 18 (test code = 60360) NEGATIVE HPV, HR, OTHER GENOTYPES (te st code = 44855) NEGATIVE Duarte McadamsPAP TEST, THINPREP, [id number] 00:00:00* Test Item Value Reference Range Interpretation Comme nts SOURCE: (test code = 800) Cervical SLIDES: (test code = 8011) 1 LMP: (test code = 8021) 12/23/2021 SPECIMEN ADEQUACY: (test code = 64345) (NOTE) INTERPRETATION: (test code = 47400) NILM/NO EPITH. ABNORMALITY;SEE BELOW FUR SEWER: (test code = 8101) KORY Manzo (ASCP) LOCATION: (test code = 30831) (NOTE) CPT: (test code = 8140) (NOTE) Duarte Olsen AustinHPV HIGH RISK WITH GENOTYPE, [id number] 00:00:00* Test Item Value Reference Range Interpretation Comme nts HPV HIGH RISK INTERP (test c ode = 06616) NEGATIVE HPV 16 (test code = 48805) NEGATIVE HPV 18 (test code = 81001) NEGATIVE HPV, HR, OTHER GENOTYPES (te st code = 16992) NEGATIVE Duarte Mcadams- CT HEAD/BRAIN W/O [id number] 14:37:00 [facility] 1975 Sex: F FAX: Sivan Louis MD [place]: St: PRE Name: CIPRIANO COHEN [facility] : 1975 Age/S: 45/F [address] [facility] Unit: [id number] Loc: [place], [place]: [place] [address] Acct: [id number] Dis Date: Status: PRE ER PHONE #: [phone] Exam Date: 12/01/2020 1426 FAX #: [phone] Reason: SYNCOPE EXAMS: CPT CODE: [id number] CT HEAD/BRAIN W/O CONT 91568 CLINICAL HISTORY: Syncope, passed out. CT brain, [...] appearing intracranial abnormality. Location: U19 at 1437 Reportedand signed by: Reginaldo Bridges MD CC: Sivan Santos MD Technologist: NADINE MURRAY Trnscrd Dt/Tm: 12/01/2020 (1437) [id number] Orig Print D/T: S: 12/01/2020 (1440 PAGE 1 Signed ReportCOMPREHENSIVE METABOLIC [id number] 14:34:00* Test Item Value Reference Range Interpretation [...] code = ALKP) 99 Units/L 50.0-136.0 N [id number] 14:34:00* Test Item Value Reference Range Interpretation Comme nts LIPASE (test code = LIP) 313 Units/L 65.0-230.0 H B-TYPE NATRIURETIC [id number] 14:34:00* Test Item Value Reference Range Interpretation Comme nts B-TYPE NATRIURETIC PEPTIDE ( test code = BNP) 22.0 PG/ML 5-100 N CARDIAC ENZYMES [id number] 14:34:00* Test Item Value Reference Range Interpretation Comme nts CREATINE KINASE (CK) (test code = CK) 37 Units/L 21-215 N TROPONIN-I (test code = TROPI) <0.02 NG/ML 0.00-0.06 N REFERENCE RANGE TROPONIN I HEALTHY INDIVIDUALS: <0.06 ng/mL R/O ISCHEMIA: 0.07 - 0.60 ng/mL CUT-OFF RANGE FOR AMI: 0.60 - 1.5 ng/mL COMPREHENSIVE METABOLIC [id number] 14:32:00* Test Item Value Reference Range Interpretation [...] ( test code = ALKP) Units/L 50.0-136.0 [id number] 14:32:00* Test Item Value Reference Range Interpretation Comme [facility] LIPASE (test code = LIP) Units/L 65.0-230.0 B-TYPE NATRIURETIC [id number] 14:32:00* Test Item Value Reference Range Interpretation Comme [facility] B-TYPE NATRIURETIC PEPTIDE ( test code = BNP) 22.0 PG/ML 5-100 N CARDIAC ENZYMES [id number] 14:32:00* Test Item Value Reference Range Interpretation Comme [facility] CREATINE KINASE (CK) (test code = CK) Units/L 21-215 TROPONIN-I (test code = TROPI) NG/ML 0.00-0.06 - XR CHEST 1 [id number] 14:14:00 [facility] : 1975 Sex: F FAX: Sivan Louis MD [place]: CLARA St: PRE Name: CIPRIANO COHEN [facility] : 1975 Age/S: 45/F [address] [employer] Unit #: [id number] Loc: [place], [place]: [place] [address] Acct: [id number] Dis Date: Status: PRE ER PHONE #: [phone] Exam Date: 12/01/20201412 FAX #: [phone] Reason: SYNCOPE EXAMS: CPT CODE: [id number] XR CHEST 1 V 99571 EXAM: - XR CHEST 1 V Location code:C3 HISTORY: SYNCOPE COMPARISON: None available time of interpretation. FINDINGS: Single AP view of the chest is provided. Heart size and vascularity are within normal limits. The lungs are clearof focal consolidation. No effusion, pneumothorax, or acute osseous abnormality. IMPRESSION: 1. No radiographic evidence of acute cardiopulmonary process. at 1414 Reported and signed by: Andrew Contreras M.D. CC: Sivan Santos MD Technologist: GEORGINA HENDERSON Trnscrd Date/Time/By: 12/01/2020 (1664) : By: [email or web address] PAGE 1 Signed Report FAX: Sivan Louis MD [place]: St: PRE Name: CIPRIANO COHEN [facility] : 1975 Age/S: 45/F [address] [employer] Unit #: [id number] Loc: [place], [place]: [place] [address] Acct: [id number] Dis Date: Status: PRE ER PHONE #: [phone] Exam Date: 04/2021 FAX #: [phone] Reason: SYNCOPE EXAMS: CPT CODE: [id number] XR CHEST 1 V 06267 (Continued) Orig Print D/T: S: 12/01/2020 (8327) PAGE 2 Signed [id number] 14:12:00* Test Item Value Reference Range Interpretation Comme nts LIPASE (test code = LIP) Units/L 65.0-230.0 B-TYPE NATRIURETIC [id number] 14:12:00* Test Item Value Reference Range Interpretation Comme nts B-TYPE NATRIURETIC PEPTIDE ( test code = BNP) PG/ML 5-100 CARDIAC ENZYMES [id number] 14:12:00* Test Item Value Reference Range Interpretation Comme nts CREATINE KINASE (CK) (test code = CK) Units/L 21-215 TROPONIN-I (test code = TROPI) NG/ML 0.00-0.06 COMPREHENSIVE METABOLIC [id number] 14:12:00* Test Item Value Reference Range Interpretation [...] code = ALKP) Units/L 50.0-136.0 CBC W/AUTO [id number] 14:05:00* Test Item Value Reference Range Interpretation [...] = NRBC#) 0.00 X10 3uL 0.00-0.01 N [id number] 00:00:00* Test Item Value Reference Range Interpretation Comme [facility] TSH, THIRD GENERATION (test code = 2821) 4.060 UIU/ML Duarte Olsen HastyHEMOGLOBIN [id number] 00:00:00* Test Item Value Reference Range Interpretation Comme nts HEMOGLOBIN A1c (test code = 14438) 6.3 % Duarte McadamsCOMPREHENSIVE METABOLIC [id number] 00:00:00* Test Item Value Reference Range Interpretation Comme nts GLUCOSE (test code = 2217) 103 MG/DL BUN (test code = 2208) 11 MG/DL CREATININE (test code = 2214) 0.73 MG/DL eGFR AMER. (test cod e = 44710) 115 ML/MIN/1.73 eGFR NON- AMER. (test code = 65800) 99 ML/MIN/1.73 CALC BUN/CREAT (test code = [...] (test code = 2219) 26 U/L Duarte [id number] 00:00:00* Test Item Value Reference Range Interpretation Comme [facility] TSH, THIRD GENERATION (test code = 2821) 4.060 UIU/ML Duarte McadamsHEMOGLOBIN [id number] 00:00:00* Test Item Value Reference Range Interpretation Comme nts HEMOGLOBIN A1c (test code = 06037) 6.3 % Duarte McadamsCOMPREHENSIVE METABOLIC [id number] 00:00:00* Test Item Value Reference Range Interpretation Comme nts GLUCOSE (test code = 2217) 103 MG/DL BUN (test code = 2208) 11 MG/DL CREATININE (test code = 2214) 0.73 MG/DL eGFR AMER. (test cod e = 57844) 115 ML/MIN/1.73 eGFR NON- AMER. (test code = 31061) 99 ML/MIN/1.73 CALC BUN/CREAT (test code = [...] (test code = 2219) 26 U/L Duarte [id number] 00:00:00* Test Item Value Reference Range Interpretation Comme [facility] TSH, THIRD GENERATION (test code = 2821) 4.060 UIU/ML Duarte McadamsHEMOGLOBIN [id number] 00:00:00* Test Item Value Reference Range Interpretation Comme nts HEMOGLOBIN A1c (test code = 59226) 6.3 % Duarte McadamsCOMPREHENSIVE METABOLIC [id number] 00:00:00* Test Item Value Reference Range Interpretation Comme nts GLUCOSE (test code = 2217) 103 MG/DL BUN (test code = 2208) 11 MG/DL CREATININE (test code = 2214) 0.73 MG/DL eGFR AMER. (test cod e = 89975) 115 ML/MIN/1.73 eGFR NON- AMER. (test code = 11788) 99 ML/MIN/1.73 CALC BUN/CREAT (test code = [...] (test code = 2219) 26 U/L Duarte [id number] 00:00:00* Test Item Value Reference Range Interpretation Comme nts TSH, THIRD GENERATION (test code = 2821) 4.060 UIU/ML Duarte McadamsHEMOGLOBIN [id number] 00:00:00* Test Item Value Reference Range Interpretation Comme nts HEMOGLOBIN A1c (test code = 58501) 6.3 % Duarte McadamsCOMPREHENSIVE METABOLIC [id number] 00:00:00* Test Item Value Reference Range Interpretation Comme nts GLUCOSE (test code = 2217) 103 MG/DL BUN (test code = 2208) 11 MG/DL CREATININE (test code = 2214) 0.73 MG/DL eGFR AMER. (test cod e = 43544) 115 ML/MIN/1.73 eGFR NON- AMER. (test code = 52984) 99 ML/MIN/1.73 CALC BUN/CREAT (test code = [...] (test code = 2219) 26 U/L Duarte [id number] 00:00:00* Test Item Value Reference Range Interpretation Comme nts TSH, THIRD GENERATION (test code = 2821) 4.060 UIU/ML Duarte McadamsHEMOGLOBIN [id number] 00:00:00* Test Item Value Reference Range Interpretation Comme nts HEMOGLOBIN A1c (test code = 42560) 6.3 % Duarte McadamsCOMPREHENSIVE METABOLIC [id number] 00:00:00* Test Item Value Reference Range Interpretation Comme nts GLUCOSE (test code = 2217) 103 MG/DL BUN (test code = 2208) 11 MG/DL CREATININE (test code = 2214) 0.73 MG/DL eGFR AMER. (test cod e = 40209) 115 ML/MIN/1.73 eGFR NON- AMER. (test code = 50693) 99 ML/MIN/1.73 CALC BUN/CREAT (test code = [...] (test code = 2219) 26 U/L Duarte [id number] 00:00:00* Test Item Value Reference Range Interpretation Comme [facility] TSH, THIRD GENERATION (test code = 2821) 4.060 UIU/ML Duarte McadamsHEMOGLOBIN [id number] 00:00:00* Test Item Value Reference Range Interpretation Comme [facility] HEMOGLOBIN A1c (test code = 18045) 6.3 % Duarte McadamsCOMPREHENSIVE METABOLIC [id number] 00:00:00* Test Item Value Reference Range Interpretation Comme nts GLUCOSE (test code = 2217) 103 MG/DL BUN (test code = 2208) 11 MG/DL CREATININE (test code = 2214) 0.73 MG/DL eGFR AMER. (test cod e = 43266) 115 ML/MIN/1.73 eGFR NON- AMER. (test code = 40010) 99 ML/MIN/1.73 CALC BUN/CREAT (test code = [...] (test code = 2219) 26 U/L Duarte [id number] 00:00:00* Test Item Value Reference Range Interpretation Comme [facility] TSH, THIRD GENERATION (test code = 2821) 4.060 UIU/ML Duarte McadamsHEMOGLOBIN [id number] 00:00:00* Test Item Value Reference Range Interpretation Comme [facility] HEMOGLOBIN A1c (test code = 73740) 6.3 % Duarte McadamsCOMPREHENSIVE METABOLIC [id number] 00:00:00* Test Item Value Reference Range Interpretation Comme nts GLUCOSE (test code = 2217) 103 MG/DL BUN (test code = 2208) 11 MG/DL CREATININE (test code = 2214) 0.73 MG/DL eGFR AMER. (test cod e = 35116) 115 ML/MIN/1.73 eGFR NON- AMER. (test code = 34234) 99 ML/MIN/1.73 CALC BUN/CREAT (test code = [...] 2219) 26 U/L Duarte McadamsVITAMIN D, 25 [id number] 00:00:00* Test Item Value Reference Range Interpretation Comme [facility]ola VITAMIN D, 25 OH (test code = 4958) 18 NG/ML Duarte McadamsCOMPREHENSIVE METABOLIC [id number] 00:00:00* Test Item Value Reference Range Interpretation Comme carola GLUCOSE (test code = 2217) 127 MG/DL BUN (test code = 2208) 11 MG/DL CREATININE (test code = 2214) 0.71 MG/DL eGFR AMER. (test cod e = 36630) 119 ML/MIN/1.73 eGFR NON- AMER. (test code = 44232) 103 ML/MIN/1.73 CALC BUN/CREAT (test code = 2235) 15 RATIO SODIUM (test code = 223) 140 MEQ/L POTASSIUM (test code = 2228) 4.0 MEQ/L CHLORIDE (test code = 2215) 105 MEQ/L CARBON DIOXIDE (test code = 2206) 25 MEQ/L CALCIUM (test code = 2209) 9.3 MG/DL PROTEIN, TOTAL (test code = 222) 7.4 G/DL ALBUMIN (test code = 2201) 4.4 G/DL CALC GLOBULIN (test code = 2240) 3.0 G/DL CALC A/G RATIO (test code = 2234) 1.5 RATIO BILIRUBIN, TOTAL (test code = 220) 0.2 MG/DL ALKALINE PHOSPHATASE (test code = 2203) 94 U/L AST (test code = 221) 20 U/L ALT (test code = 221) 28 U/L Duarte [id number] 00:00:00* Test Item Value Reference Range Interpretation Comme nts TSH, THIRD GENERATION (test code = 2821) 8.300 UIU/ML Duarte McadamsLIPID [id number] 00:00:00* Test Item Value Reference Range Interpretation Comme nts CHOLESTEROL (test code = 2210) 185 MG/DL TRIGLYCERIDES (test code = 2232) 146 MG/DL HDL CHOLESTEROL (test code = 2220) 50 MG/DL CALC LDL CHOL (test code = 2237) 109 MG/DL RISK RATIO LDL/HDL (test cod e = 2238) 2.18 RATIO Duarte McadamsCBC W/AUTO [id number] 00:00:00* Test Item Value Reference Range Interpretation [...] 1015) 288 K/UL Duarte McadamsVITAMIN D, 25 [id number] 00:00:00* Test Item Value Reference Range Interpretation Comme nts VITAMIN D, 25 OH (test code = 4958) 18 NG/ML Duarte McadamsCOMPREHENSIVE METABOLIC [id number] 00:00:00* Test Item Value Reference Range Interpretation Comme nts GLUCOSE (test code = 2217) 127 MG/DL BUN (test code = 2208) 11 MG/DL CREATININE (test code = 2214) 0.71 MG/DL eGFR AMER. (test cod e = 25274) 119 ML/MIN/1.73 eGFR NON- AMER. (test code = 60870) 103 ML/MIN/1.73 CALC BUN/CREAT (test code = [...] (test code = 2219) 28 U/L Duarte [id number] 00:00:00* Test Item Value Reference Range Interpretation Comme nts TSH, THIRD GENERATION (test code = 2821) 8.300 UIU/ML Duarte McadamsLIPID [id number] 00:00:00* Test Item Value Reference Range Interpretation Comme nts CHOLESTEROL (test code = 2210) 185 MG/DL TRIGLYCERIDES (test code = 2232) 146 MG/DL HDL CHOLESTEROL (test code = 2220) 50 MG/DL CALC LDL CHOL (test code = 2237) 109 MG/DL RISK RATIO LDL/HDL (test cod e = 2238) 2.18 RATIO Duarte McadamsCBC W/AUTO [id number] 00:00:00* Test Item Value Reference Range Interpretation [...] 1015) 288 K/UL Duarte McadamsVITAMIN D, 25 [id number] 00:00:00* Test Item Value Reference Range Interpretation Comme [facility] VITAMIN D, 25 OH (test code = 4958) 18 NG/ML Duarte McadamsCOMPREHENSIVE METABOLIC [id number] 00:00:00* Test Item Value Reference Range Interpretation Comme nts GLUCOSE (test code = 2217) 127 MG/DL BUN (test code = 2208) 11 MG/DL CREATININE (test code = 2214) 0.71 MG/DL eGFR AMER. (test cod e = 89705) 119 ML/MIN/1.73 eGFR NON- AMER. (test code = 86947) 103 ML/MIN/1.73 CALC BUN/CREAT (test code = [...] (test code = 2219) 28 U/L Duarte [id number] 00:00:00* Test Item Value Reference Range Interpretation Comme nts TSH, THIRD GENERATION (test code = 2821) 8.300 UIU/ML Duarte McadamsLIPID [id number] 00:00:00* Test Item Value Reference Range Interpretation Comme nts CHOLESTEROL (test code = 2210) 185 MG/DL TRIGLYCERIDES (test code = 2232) 146 MG/DL HDL CHOLESTEROL (test code = 2220) 50 MG/DL CALC LDL CHOL (test code = 2237) 109 MG/DL RISK RATIO LDL/HDL (test cod e = 2238) 2.18 RATIO Duarte McadamsCBC W/AUTO [id number] 00:00:00* Test Item Value Reference Range Interpretation [...] 1015) 288 K/UL Duarte McadamsVITAMIN D, 25 [id number] 00:00:00* Test Item Value Reference Range Interpretation Comme nts VITAMIN D, 25 OH (test code = 4958) 18 NG/ML Duarte McadamsCOMPREHENSIVE METABOLIC [id number] 00:00:00* Test Item Value Reference Range Interpretation Comme nts GLUCOSE (test code = 2217) 127 MG/DL BUN (test code = 2208) 11 MG/DL CREATININE (test code = 2214) 0.71 MG/DL eGFR AMER. (test cod e = 70434) 119 ML/MIN/1.73 eGFR NON- AMER. (test code = 78423) 103 ML/MIN/1.73 CALC BUN/CREAT (test code = [...] (test code = 2219) 28 U/L Duarte [id number] 00:00:00* Test Item Value Reference Range Interpretation Comme nts TSH, THIRD GENERATION (test code = 2821) 8.300 UIU/ML Duarte McadamsLIPID [id number] 00:00:00* Test Item Value Reference Range Interpretation Comme nts CHOLESTEROL (test code = 2210) 185 MG/DL TRIGLYCERIDES (test code = 2232) 146 MG/DL HDL CHOLESTEROL (test code = 2220) 50 MG/DL CALC LDL CHOL (test code = 2237) 109 MG/DL RISK RATIO LDL/HDL (test cod e = 2238) 2.18 RATIO Duarte McadamsCBC W/AUTO [id number] 00:00:00* Test Item Value Reference Range Interpretation [...] 1015) 288 K/UL Duarte McadamsVITAMIN D, 25 [id number] 00:00:00* Test Item Value Reference Range Interpretation Comme nts VITAMIN D, 25 OH (test code = 4958) 18 NG/ML Duarte McadamsCOMPREHENSIVE METABOLIC [id number] 00:00:00* Test Item Value Reference Range Interpretation Comme nts GLUCOSE (test code = 2217) 127 MG/DL BUN (test code = 2208) 11 MG/DL CREATININE (test code = 2214) 0.71 MG/DL eGFR AMER. (test cod e = 27938) 119 ML/MIN/1.73 eGFR NON- AMER. (test code = 78995) 103 ML/MIN/1.73 CALC BUN/CREAT (test code = [...] (test code = 2219) 28 U/L Duarte [id number] 00:00:00* Test Item Value Reference Range Interpretation Comme carola TSH, THIRD GENERATION (test code = 2821) 8.300 UIU/ML Duarte McadamsLIPID [id number] 00:00:00* Test Item Value Reference Range Interpretation Comme nts CHOLESTEROL (test code = 2210) 185 MG/DL TRIGLYCERIDES (test code = 2232) 146 MG/DL HDL CHOLESTEROL (test code = 2220) 50 MG/DL CALC LDL CHOL (test code = 2237) 109 MG/DL RISK RATIO LDL/HDL (test cod e = 2238) 2.18 RATIO Duarte McadamsCBC W/AUTO [id number] 00:00:00* Test Item Value Reference Range Interpretation [...] 1015) 288 K/UL Duarte McadamsVITAMIN D, 25 [id number] 00:00:00* Test Item Value Reference Range Interpretation Comme carola VITAMIN D, 25 OH (test code = 4958) 18 NG/ML Duarte McadamsCOMPREHENSIVE METABOLIC [id number] 00:00:00* Test Item Value Reference Range Interpretation Comme nts GLUCOSE (test code = 2217) 127 MG/DL BUN (test code = 2208) 11 MG/DL CREATININE (test code = 2214) 0.71 MG/DL eGFR AMER. (test cod e = 38200) 119 ML/MIN/1.73 eGFR NON- AMER. (test code = 25987) 103 ML/MIN/1.73 CALC BUN/CREAT (test code = 2235) 15 RATIO SODIUM (test code = 223) 140 MEQ/L POTASSIUM (test code = 2228) 4.0 MEQ/L CHLORIDE (test code = 2215) 105 MEQ/L CARBON DIOXIDE (test code = 2206) 25 MEQ/L CALCIUM (test code = 2209) 9.3 MG/DL PROTEIN, TOTAL (test code = 222) 7.4 G/DL ALBUMIN (test code = 2201) 4.4 G/DL CALC GLOBULIN (test code = 2240) 3.0 G/DL CALC A/G RATIO (test code = 2234) 1.5 RATIO BILIRUBIN, TOTAL (test code = 220) 0.2 MG/DL ALKALINE PHOSPHATASE (test code = 2203) 94 U/L AST (test code = 221) 20 U/L ALT (test code = 221) 28 U/L Duarte [id number] 00:00:00* Test Item Value Reference Range Interpretation Comme nts TSH, THIRD GENERATION (test code = 2821) 8.300 UIU/ML Duarte McadamsLIPID [id number] 00:00:00* Test Item Value Reference Range Interpretation Comme nts CHOLESTEROL (test code = 2210) 185 MG/DL TRIGLYCERIDES (test code = 2232) 146 MG/DL HDL CHOLESTEROL (test code = 2220) 50 MG/DL CALC LDL CHOL (test code = 2237) 109 MG/DL RISK RATIO LDL/HDL (test cod e = 2238) 2.18 RATIO Duarte McadamsCBC W/AUTO [id number] 00:00:00* Test Item Value Reference Range Interpretation [...] 1015) 288 K/UL Duarte McadamsVITAMIN D, 25 [id number] 00:00:00* Test Item Value Reference Range Interpretation Comme nts VITAMIN D, 25 OH (test code = 4958) 18 NG/ML Duarte McadamsCOMPREHENSIVE METABOLIC [id number] 00:00:00* Test Item Value Reference Range Interpretation Comme nts GLUCOSE (test code = 2217) 127 MG/DL BUN (test code = 2208) 11 MG/DL CREATININE (test code = 2214) 0.71 MG/DL eGFR AMER. (test cod e = 53125) 119 ML/MIN/1.73 eGFR NON- AMER. (test code = 17512) 103 ML/MIN/1.73 CALC BUN/CREAT (test code = [...] (test code = 2219) 28 U/L Duarte [id number] 00:00:00* Test Item Value Reference Range Interpretation Comme nts TSH, THIRD GENERATION (test code = 2821) 8.300 UIU/ML Duarte McadamsLIPID [id number] 00:00:00* Test Item Value Reference Range Interpretation Comme nts CHOLESTEROL (test code = 2210) 185 MG/DL TRIGLYCERIDES (test code = 2232) 146 MG/DL HDL CHOLESTEROL (test code = 2220) 50 MG/DL CALC LDL CHOL (test code = 2237) 109 MG/DL RISK RATIO LDL/HDL (test cod e = 2238) 2.18 RATIO Duarte McadamsC W/AUTO [id number] 00:00:00* Test Item Value Reference Range Interpretation [...] 1015) 288 K/UL Duarte McadamsISOFORMS 25-HYDROXY VIT [id number] 00:00:00* Test Item Value Reference Range Interpretation Comme nts 25-HYDROXYVITAMIN D2 (test c ode = 36229) <1.0 ng/mL 25-HYDROXYVITAMIN D3 (test c ode = 22030) 12.8 ng/mL 25-HYDROXYVITAMIN D TOTAL (t est code = 10730) 13.8 ng/mL Duarte Olsen AustinISOFORMS 25-HYDROXY VIT [id number] 00:00:00* Test Item Value Reference Range Interpretation Comme nts 25-HYDROXYVITAMIN D2 (test c ode = 82471) <1.0 ng/mL 25-HYDROXYVITAMIN D3 (test c ode = 28258) 12.8 ng/mL 25-HYDROXYVITAMIN D TOTAL (t est code = 51304) 13.8 ng/mL Duarte McadamsISOFORMS 25-HYDROXY VIT [id number] 00:00:00* Test Item Value Reference Range Interpretation Comme nts 25-HYDROXYVITAMIN D2 (test c ode = 42380) <1.0 ng/mL 25-HYDROXYVITAMIN D3 (test c ode = 05363) 12.8 ng/mL 25-HYDROXYVITAMIN D TOTAL (t est code = 94805) 13.8 ng/mL Duarte McadamsISOFORMS 25-HYDROXY VIT [id number] 00:00:00* Test Item Value Reference Range Interpretation Comme nts 25-HYDROXYVITAMIN D2 (test c ode = 13261) <1.0 ng/mL 25-HYDROXYVITAMIN D3 (test c ode = 30318) 12.8 ng/mL 25-HYDROXYVITAMIN D TOTAL (t est code = 65750) 13.8 ng/mL Duarte McadamsISOFORMS 25-HYDROXY VIT [id number] 00:00:00* Test Item Value Reference Range Interpretation Comme nts 25-HYDROXYVITAMIN D2 (test c ode = 08063) <1.0 ng/mL 25-HYDROXYVITAMIN D3 (test c ode = 25057) 12.8 ng/mL 25-HYDROXYVITAMIN D TOTAL (t est code = 80695) 13.8 ng/mL Duarte McadamsISOFORMS 25-HYDROXY VIT [id number] 00:00:00* Test Item Value Reference Range Interpretation Comme nts 25-HYDROXYVITAMIN D2 (test c ode = 77331) <1.0 ng/mL 25-HYDROXYVITAMIN D3 (test c ode = 79188) 12.8 ng/mL 25-HYDROXYVITAMIN D TOTAL (t est code = 30269) 13.8 ng/mL Duarte McadamsISOFORMS 25-HYDROXY VIT [id number] 00:00:00* Test Item Value Reference Range Interpretation Comme nts 25-HYDROXYVITAMIN D2 (test c ode = 00799) <1.0 ng/mL 25-HYDROXYVITAMIN D3 (test c ode = 78322) 12.8 ng/mL 25-HYDROXYVITAMIN D TOTAL (t est code = 29290) 13.8 ng/mL Duarte McadamsLIPID [id number] 00:00:00* Test Item Value Reference Range Interpretation Comme nts CHOLESTEROL (test code = 2210) 162 MG/DL TRIGLYCERIDES (test code = 2232) 161 MG/DL HDL CHOLESTEROL (test code = 2220) 46 MG/DL CALC LDL CHOL (test code = 2237) 90 MG/DL RISK RATIO LDL/HDL (test cod e = 2238) 1.96 RATIO Duarte McadamsVITAMIN B 12 AND FOLIC [id number] 00:00:00* Test Item Value Reference Range Interpretation Comme nts VITAMIN B-12 (test code = 2840) 546 PG/ML FOLIC ACID (test code = 2695) >20.0 UG/L Duarte McadamsCBC W/AUTO [id number] 00:00:00* Test Item Value Reference Range Interpretation [...] = 1015) 335 K/UL Duarte McadamsCOMPREHENSIVE METABOLIC [id number] 00:00:00* Test Item Value Reference Range Interpretation Comme nts GLUCOSE (test code = 2217) 125 MG/DL BUN (test code = 2208) 10 MG/DL CREATININE (test code = 2214) 0.57 MG/DL eGFR AMER. (test cod e = 96545) 131 ML/MIN/1.73 eGFR NON- AMER. (test code = 02021) 113 ML/MIN/1.73 CALC BUN/CREAT (test code = [...] code = 2219) 20 U/L Duarte McadamsLIPID [id number] 00:00:00* Test Item Value Reference Range Interpretation Comme nts CHOLESTEROL (test code = 2210) 162 MG/DL TRIGLYCERIDES (test code = 2232) 161 MG/DL HDL CHOLESTEROL (test code = 2220) 46 MG/DL CALC LDL CHOL (test code = 2237) 90 MG/DL RISK RATIO LDL/HDL (test cod e = 2238) 1.96 RATIO Duarte McadamsVITAMIN B 12 AND FOLIC [id number] 00:00:00* Test Item Value Reference Range Interpretation Comme nts VITAMIN B-12 (test code = 2840) 546 PG/ML FOLIC ACID (test code = 2695) >20.0 UG/L Duarte McadamsCBC W/AUTO [id number] 00:00:00* Test Item Value Reference Range Interpretation [...] 1015) 335 K/UL Duarte Olsen AbbeCOMPREHENSIVE METABOLIC [id number] 00:00:00* Test Item Value Reference Range Interpretation Comme nts GLUCOSE (test code = 2217) 125 MG/DL BUN (test code = 2208) 10 MG/DL CREATININE (test code = 2214) 0.57 MG/DL eGFR AMER. (test cod e = 24884) 131 ML/MIN/1.73 eGFR NON- AMER. (test code = 14569) 113 ML/MIN/1.73 CALC BUN/CREAT (test code = [...] code = 2219) 20 U/L Duarte McadamsLIPID [id number] 00:00:00* Test Item Value Reference Range Interpretation Comme nts CHOLESTEROL (test code = 2210) 162 MG/DL TRIGLYCERIDES (test code = 2232) 161 MG/DL HDL CHOLESTEROL (test code = 2220) 46 MG/DL CALC LDL CHOL (test code = 2237) 90 MG/DL RISK RATIO LDL/HDL (test cod e = 2238) 1.96 RATIO Duarte McadamsVITAMIN B 12 AND FOLIC [id number] 00:00:00* Test Item Value Reference Range Interpretation Comme nts VITAMIN B-12 (test code = 2840) 546 PG/ML FOLIC ACID (test code = 7925) >20.0 UG/L Duarte McadamsCBC W/AUTO [id number] 00:00:00* Test Item Value Reference Range Interpretation [...] = 1015) 335 K/UL Duarte McadamsCOMPREHENSIVE METABOLIC [id number] 00:00:00* Test Item Value Reference Range Interpretation Comme nts GLUCOSE (test code = 2217) 125 MG/DL BUN (test code = 2208) 10 MG/DL CREATININE (test code = 2214) 0.57 MG/DL eGFR AMER. (test cod e = 59910) 131 ML/MIN/1.73 eGFR NON- AMER. (test code = 12033) 113 ML/MIN/1.73 CALC BUN/CREAT (test code = [...] code = 2219) 20 U/L Duarte Olsen AustinLIPID [id number] 00:00:00* Test Item Value Reference Range Interpretation Comme nts CHOLESTEROL (test code = 2210) 162 MG/DL TRIGLYCERIDES (test code = 2232) 161 MG/DL HDL CHOLESTEROL (test code = 2220) 46 MG/DL CALC LDL CHOL (test code = 2237) 90 MG/DL RISK RATIO LDL/HDL (test cod e = 2238) 1.96 RATIO Duarte McadamsVITAMIN B 12 AND FOLIC [id number] 00:00:00* Test Item Value Reference Range Interpretation Comme nts VITAMIN B-12 (test code = 2840) 546 PG/ML FOLIC ACID (test code = 2695) >20.0 UG/L Duarte McadamsCBC W/AUTO [id number] 00:00:00* Test Item Value Reference Range Interpretation [...] = 1015) 335 K/UL Duarte McadamsCOMPREHENSIVE METABOLIC [id number] 00:00:00* Test Item Value Reference Range Interpretation Comme nts GLUCOSE (test code = 2217) 125 MG/DL BUN (test code = 2208) 10 MG/DL CREATININE (test code = 2214) 0.57 MG/DL eGFR AMER. (test cod e = 92147) 131 ML/MIN/1.73 eGFR NON- AMER. (test code = 46931) 113 ML/MIN/1.73 CALC BUN/CREAT (test code = [...] code = 2219) 20 U/L Duarte Olsen AbbeLIPID [id number] 00:00:00* Test Item Value Reference Range Interpretation Comme nts CHOLESTEROL (test code = 2210) 162 MG/DL TRIGLYCERIDES (test code = 2232) 161 MG/DL HDL CHOLESTEROL (test code = 2220) 46 MG/DL CALC LDL CHOL (test code = 2237) 90 MG/DL RISK RATIO LDL/HDL (test cod e = 2238) 1.96 RATIO Duarte Olsen AbbeVITAMIN B 12 AND FOLIC [id number] 00:00:00* Test Item Value Reference Range Interpretation Comme nts VITAMIN B-12 (test code = 2840) 546 PG/ML FOLIC ACID (test code = 2695) >20.0 UG/L Duarte Olsen AbbeCBC W/AUTO [id number] 00:00:00* Test Item Value Reference Range Interpretation [...] (test code = 1015) 335 K/UL Duarte F AbbeCOMPREHENSIVE METABOLIC [id number] 00:00:00* Test Item Value Reference Range Interpretation Comme nts GLUCOSE (test code = 2217) 125 MG/DL BUN (test code = 2208) 10 MG/DL CREATININE (test code = 2214) 0.57 MG/DL eGFR AMER. (test cod e = 46347) 131 ML/MIN/1.73 eGFR NON- AMER. (test code = 58099) 113 ML/MIN/1.73 CALC BUN/CREAT (test code = [...] code = 2219) 20 U/L Duarte Olsen AbbeLIPID [id number] 00:00:00* Test Item Value Reference Range Interpretation Comme nts CHOLESTEROL (test code = 2210) 162 MG/DL TRIGLYCERIDES (test code = 2232) 161 MG/DL HDL CHOLESTEROL (test code = 2220) 46 MG/DL CALC LDL CHOL (test code = 2237) 90 MG/DL RISK RATIO LDL/HDL (test cod e = 2238) 1.96 RATIO Duarte McadamsVITAMIN B 12 AND FOLIC [id number] 00:00:00* Test Item Value Reference Range Interpretation Comme nts VITAMIN B-12 (test code = 2840) 546 PG/ML FOLIC ACID (test code = 2695) >20.0 UG/L Duarte McadamsCBC W/AUTO [id number] 00:00:00* Test Item Value Reference Range Interpretation [...] 1015) 335 K/UL Duarte Olsen AbbeCOMPREHENSIVE METABOLIC [id number] 00:00:00* Test Item Value Reference Range Interpretation Comme nts GLUCOSE (test code = 2217) 125 MG/DL BUN (test code = 2208) 10 MG/DL CREATININE (test code = 2214) 0.57 MG/DL eGFR AMER. (test cod e = 41167) 131 ML/MIN/1.73 eGFR NON- AMER. (test code = 31094) 113 ML/MIN/1.73 CALC BUN/CREAT (test code = [...] code = 2219) 20 U/L Duarte McadamsLIPID [id number] 00:00:00* Test Item Value Reference Range Interpretation Comme nts CHOLESTEROL (test code = 2210) 162 MG/DL TRIGLYCERIDES (test code = 2232) 161 MG/DL HDL CHOLESTEROL (test code = 2220) 46 MG/DL CALC LDL CHOL (test code = 2237) 90 MG/DL RISK RATIO LDL/HDL (test cod e = 2238) 1.96 RATIO Duarte McadamsVITAMIN B 12 AND FOLIC [id number] 00:00:00* Test Item Value Reference Range Interpretation Comme nts VITAMIN B-12 (test code = 2840) 546 PG/ML FOLIC ACID (test code = 2695) >20.0 UG/L Duarte McadamsCBC W/AUTO [id number] 00:00:00* Test Item Value Reference Range Interpretation [...] = 1015) 335 K/UL Duarte McadamsCOMPREHENSIVE METABOLIC [id number] 00:00:00* Test Item Value Reference Range Interpretation Comme nts GLUCOSE (test code = 2217) 125 MG/DL BUN (test code = 2208) 10 MG/DL CREATININE (test code = 2214) 0.57 MG/DL eGFR AMER. (test cod e = 91850) 131 ML/MIN/1.73 eGFR NON- AMER. (test code = 49520) 113 ML/MIN/1.73 CALC BUN/CREAT (test code = [...] (test code = 2219) 20 U/L Duarte Mcadams
[2024-06-15] MEDS ORDERED: KETOROLAC 30 MG/ML INJ ONE (09:32)
[2024-06-15] MEDS ORDERED: METHYLPREDNISOLONE 125 MG INJ ONE (09:32)
[2024-06-15] MEDS ORDERED: methocarbamoL 750 MG TAB ONE (09:32)
[2024-06-15] MEDS ORDERED: CODEINE 30MG/APAP 300MG TAB ONE (09:33)
--- NOTE | 2024-06-15 10:19 | EDPHYS ---
Physician Documentation [facility] Name: Radha Reyes Age: 49 yrs Sex: Female : 1975 Arrival Date: 06/15/2024 Time: 08:46 Bed 13 Private MD: ED Physician Masoud George HPI: 06/15 10:11 This 49 yrs old Female presents to ER via Ambulatory with complaints of Back bo1 Pain. 10:11 The patient presents with pain that is acute. The symptoms are located in the low back, bo1 Low lumbar spine. Onset: The symptoms/episode began/occurred gradually, 4 day(s) ago. The pain does not radiate. The problem was sustained without known cause, Pt denies trauma or recent injury. Hx of prior right rib fractures and an epidural anesthesia. Modifying factors: The patient symptoms are alleviated by remaining still, the patient symptoms are aggravated by any movement. Pt is here with her BF. 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 Flu vaccine is not up to date. - Infectious Disease History:: Denies. - Social history:: Smoking status: Patient denies any tobacco usage or history of. ROS: 10:14 Constitutional: Negative for fever, chills, and weight loss bo1 10:14 Constitutional: Negative for body aches, weight loss, 10:14 Neck: Negative for pain with movement, pain at rest, 10:14 Back: Positive for decreased range of motion, pain at rest, pain with movement, of the lumbar area, 10:14 : Negative for urinary symptoms, vaginal bleeding, 10:14 MS/extremity: Negative for pain, paresthesias, swelling, 10:14 Skin: Negative for rash, 10:14 All other systems are negative, Exam: 10:15 Constitutional: This is a well developed, well nourished patient who is awake, alert, bo1 and in acute distress. 10:15 Constitutional: The patient appears alert, awake, in obvious distress, moderately distressed, Due to pain and that she prefers to stand. Unable to sit or lie down. 10:15 Neck: External neck: is normal, no acute changes, 10:15 Back: pain, that is moderate, muscle spasm, is appreciated in the lumbar area, left mid back and right mid back, 10:15 Musculoskeletal/extremity: Extremities: all appear grossly normal, with no appreciated pain with palpation, 10:15 Skin: no rash present. 10:15 Neuro: Deep tendon reflexes are 2+ (normal) in the right patellar, right Achilles, left patellar and left Achilles, Vital Signs: 08:56 BP 139 / 97; Pulse 104; Resp 19; Temp 98.5; Pulse Ox 100% ; Weight 108.86 kg; Height 5 ap3 ft. 2 in. ; Pain 10/10; 10:36 BP 132 / 86; Pulse 80; Resp 20; Temp 98; Pulse Ox 100% on R/A; kj2 08:56 Body Mass Index 43.90 (108.86 kg, 157.48 cm) ap3 08:56 Pain Scale: Adult ap3 MDM: 09:06 Medical Screening Exam initiated bo1 10:17 Differential diagnosis: chronic back pain, Muscle spasm, sciatica etc. Data reviewed: bo1 vital signs. I considered the following discharge prescriptions or medication management in the emergency department Medications were administered in the Emergency Department. See MAR. Response to treatment: the patient's symptoms have markedly improved after treatment, Pt is now able to lie down and pain has improved post meds. Administered Medications: 09:38 Drug: Ketorolac IM 60 mg IM once Route: IM; Site: right gluteus; aa5 10:35 Follow up: Response: No adverse reaction kj2 09:38 Drug: MethylPREDNISolone Sodium Succinate IM 125 mg IM once Route: IM; Site: left aa5 gluteus; 10:34 Follow up: Response: No adverse reaction kj2 09:38 Drug: Acetaminophen-Codeine PO (300 mg-30 mg) 2 tabs PO once; RASS on ADMIN: Combtv4, aa5 Very Agttd3, Agttd2, Rstlss1, AlertClm0, Drwsy-1, Lt Sdtn-2, Mod Sdtn-3, Dp Sdtn-4, UnArsble-5 Route: PO; 10:34 Follow up: Response: No adverse reaction kj2 09:39 Drug: Methocarbamol PO 750 mg PO once Route: PO; aa5 10:35 Follow up: Response: No adverse reaction kj2 Disposition Summary: 06/15/24 10:19 Discharge Ordered Notes: Location: Home bo1 Problem: new bo1 Symptoms: have improved bo1 Condition: Stable bo1 Diagnosis - Low back pain bo1 Followup: bo1 - With: Private Physician - When: Upon discharge from the Emergency Department - Reason: Recheck today's complaints, Continuance of care Discharge Instructions: - Discharge Summary Sheet bo1 - Acute Back Pain, Adult bo1 Forms: - Medication Reconciliation Form bo1 - Antibiotic Education bo1 - Prescription Opioid Use bo1 - Patient Portal Instructions bo1 - Leadership Thank You Letter bo1 Prescriptions: - acetaminophen-codeine 300-30 mg Oral tablet - take 2 tablet ORAL route every 6 hours as needed for pain; 25 tablet; Refills: bo1 0, Product Selection Permitted - ketorolac 10 mg Oral tablet - take 1 tablet ORAL route every 4 hours for 5 days do not exceed 4 doses per 24 bo1 hrs; 30 tablet; Refills: 0, Product Selection Permitted - methocarbamol 750 mg Oral tablet - take 2 tablet ORAL route 3 times per day; 50 tablet; Refills: 0, Product bo1 Selection Permitted - Prednisone 20 mg Oral Tablet - take 2 tablets ORAL route once daily for 5 days; 10 tablet; Refills: 0, Product bo1 Selection Permitted Signatures: Abena Sandy RN RN aa5 Missy Mccullough RN RN ap3 Masoud George MD MD bo1 [place] RN kj2
--- NOTE | 2024-06-15 10:19 | ER ---
Nurse's Notes [facility] Name: Radha Reyes Age: 49 yrs Sex: Female : 1975 Arrival Date: 06/15/2024 Time: 08:46 Bed 13 Private MD: Diagnosis: Low back pain Presentation: 06/15 08:56 Chief complaint: Patient states: she has chronic back pain from an old injury. patient ap3 reports the last three days the pain has been worse, and when she attempted to get up from the commode the pain got unbearable. patient currently rates her pain beyond the pain scale. Coronavirus screen: At this time, the client does not indicate any symptoms associated with coronavirus-19. Ebola Screen: No symptoms or risks identified at this time. Initial Sepsis Screen: Does the patient meet any 2 criteria? HR > 90 bpm. Does the patient have a suspected source of infection? No. Patient's initial sepsis screen is negative. Risk Assessment: Do you want to hurt yourself or someone else? Patient reports no desire to harm self or others. Onset of symptoms is unknown. 08:56 Method Of Arrival: Ambulatory ap3 08:56 Acuity: CA 3 ap3 Triage Assessment: 08:58 General: Appears uncomfortable, Behavior is calm, cooperative, appropriate for age. ap3 Pain: Complains of pain in right low back Pain currently is 10 out of 10 on a pain scale. Pain began years ago. Neuro: Level of Consciousness is awake, alert, obeys commands, Oriented to person, place, time, situation, Appropriate for age. Cardiovascular: Patient's skin is warm and dry. Respiratory: Airway is patent Respiratory effort is even, unlabored, Respiratory pattern is regular, symmetrical. Musculoskeletal: Range of motion: intact in all extremities. 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 Flu vaccine is not up to date. - Infectious Disease History:: Denies. - Social history:: Smoking status: Patient denies any tobacco usage or history of. Screenin:59 Abuse screen: Denies threats or abuse. Nutritional screening: No deficits noted. ap3 Tuberculosis screening: No symptoms or risk factors identified. 09:35 [facility] ED Fall Risk Assessment (Adult) History of falling in the last 3 months, aa5 including since admission No falls in past 3 months (0 pts) Confusion or Disorientation No (0 pts) Intoxicated or Sedated No (0 pts) Impaired Gait Yes (1 pt) Mobility Assist Device Used Yes (1 pt) Altered Elimination No (0 pt) Score/Fall Risk Level 0 - 2 = Low Risk Oriented to surroundings, Maintained a safe environment, Educated pt \T\ family on fall prevention, incl call for assistance when getting out of bed. Assessment: 09:35 General: Appears uncomfortable, Behavior is cooperative. Pain: Complains of pain in aa5 back and right low back Pain currently is 10 out of 10 on a pain scale. Quality of pain is described as sharp, shooting, Is continuous, Noted to be moaning, quiet/stoic, resistant to movement. Neuro: Level of Consciousness is awake, alert, obeys commands, Oriented to person, place, time, situation. Cardiovascular: Patient's skin is warm and dry. Respiratory: Airway is patent Respiratory effort is even, unlabored, Respiratory pattern is regular, symmetrical. GI: No signs and/or symptoms were reported involving the gastrointestinal system. : No signs and/or symptoms were reported regarding the genitourinary system. EENT: No signs and/or symptoms were reported regarding the EENT system. Derm: Skin is pink, warm \T\ dry. Musculoskeletal: Range of motion: intact in all extremities. 10:06 Reassessment: Patient appears in no apparent distress at this time. Patient and/or kj2 family updated on plan of care and expected duration. Pain level reassessed. Patient is alert, oriented x 3, equal unlabored respirations, skin warm/dry/pink. 10:35 Reassessment: Patient appears in no apparent distress at this time. Patient and/or kj2 family updated on plan of care and expected duration. Pain level reassessed. Patient is alert, oriented x 3, equal unlabored respirations, skin warm/dry/pink. Vital Signs: 08:56 BP 139 / 97; Pulse 104; Resp 19; Temp 98.5; Pulse Ox 100% ; Weight 108.86 kg; Height 5 ap3 ft. 2 in. ; Pain 10/10; 10:36 BP 132 / 86; Pulse 80; Resp 20; Temp 98; Pulse Ox 100% on R/A; kj2 08:56 Body Mass Index 43.90 (108.86 kg, 157.48 cm) ap3 08:56 Pain Scale: Adult ap3 ED Course: 08:47 Patient arrived in ED. al6 08:58 Masoud George MD is Attending Physician. bo1 08:58 Triage completed. ap3 08:59 Arm band placed on right wrist. ap3 09:06 Abena Sandy, NEPTALI is Primary Nurse. aa5 09:35 Patient has correct armband on for positive identification. Bed in low position. Call aa5 light in reach. Adult w/ patient. 10:07 Report received from Ericka Hoang RN. kj2 10:35 Provided Education on: follow up and med regimen. kj2 10:36 No provider procedures requiring assistance completed. Patient did not have IV access kj2 during this emergency room visit. Administered Medications: 09:38 Drug: Ketorolac IM 60 mg IM once Route: IM; Site: right gluteus; aa5 10:35 Follow up: Response: No adverse reaction kj2 09:38 Drug: MethylPREDNISolone Sodium Succinate IM 125 mg IM once Route: IM; Site: left aa5 gluteus; 10:34 Follow up: Response: No adverse reaction kj2 09:38 Drug: Acetaminophen-Codeine PO (300 mg-30 mg) 2 tabs PO once; RASS on ADMIN: Combtv4, aa5 Very Agttd3, Agttd2, Rstlss1, AlertClm0, Drwsy-1, Lt Sdtn-2, Mod Sdtn-3, Dp Sdtn-4, UnArsble-5 Route: PO; 10:34 Follow up: Response: No adverse reaction kj2 09:39 Drug: Methocarbamol PO 750 mg PO once Route: PO; aa5 10:35 Follow up: Response: No adverse reaction kj2 Medication: 09:59 VIS not applicable for this client. aa5 Outcome: 10:19 Discharge ordered by . bo1 10:36 Discharged to home ambulatory, kj2 10:36 Condition: stable 10:36 Discharge instructions given to patient, Instructed on discharge instructions, follow up and referral plans. Demonstrated understanding of instructions, follow-up care, medications, 10:45 Patient left the ED. kj2 Signatures: Abena Sandy, RN RN aa5 Missy Mccullough RN RN ap3 Masoud George MD MD bo1 Che Arenas RN RN kj2 Mel Sue6
[2024-06-15 11:23] VITALS: O2SAT 100
[2024-06-15 11:25] VITALS: BP 132/86; TEMP 98
== END 2024-06-15 10:45 | disposition home or self-care (01) ==
LOC: ER 08:46
DX: M54.50 Low back pain, unspecified (principal)
CPT/HCPCS: 96372; 99284; J2919